=== PATIENT | female | born 1945 | race Caucasian/White ===

== ENCOUNTER 2017-10-03 11:12 | Inpatient (IN) ==
--- NOTE | 2017-10-02 16:49 | Discharge Summary ---
<Miguelina Luna - Last Filed: 10/02/17 16:47> Date of Encounter: 10/02/17 - Discharge Diagnosis (1) Arthritis of knee, right Priority: Primary Status: Acute (2) Status post total knee replacement, right Priority: Primary Status: Acute (3) DMII (diabetes mellitus, type 2) Priority: Secondary Status: Acute Comments: MEDICATION MODIFICATIONS: Hold the following medication for 7 days prior to surgery: -LOVAZA Decrease the following medications by 50% of normal dose night before surgery: -LANTUS (DECREASE TO 18 UNITS NIGHT BEFORE SURGERY. Hold the following medications on the morning of surgery: -NOVOLOG -LASIX -LANTUS . Qualifiers: Diabetes mellitus fdc insulin use: with computer terminal operator use Diabetes mellitus complication status: with unspecified complications Qualified Code(s) : E11.8 - Type 2 diabetes mellitus with unspecified complications; Z79.4 - [facility] (current) use of insulin; Z79.4 - [facility] (current) use of insulin; Z79.4 - [facility] (current) use of insulin; Z79.4 - [facility] (current) use of insulin (4) History of DVT (deep vein thrombosis) Priority: Secondary Status: Chronic Comments: INR1.7 - OK'ed by to have surgery 10/02 Will monitor PT/INR in hospital. Bridge back to therapeutic levels with Lovenox bridge. (5) Anticoagulant long-term use Priority: Secondary Status: Chronic (6) Restless leg syndrome Priority: Secondary Status: Chronic (7) CKD (chronic kidney disease), stage IV Priority: Secondary Status: Chronic (8) Sarcoidosis of lung with sarcoidosis of lymph nodes Priority: Secondary Status: Chronic Comments: Finally, the patient is advised to adjust the following medications in accordance with instructions provided by the patient's surgical provider, PCP, or consulting specialist: -HUMIRA- patient to contact Dr. Chatman regarding resuming Humira after surgery PATIENT NAVIGATOR TO REACH OUT - Hospital Course Hospital course: Ms. Mercedes is a 72 year old female - Time Spent with Patient Total time spent providing and/or coordinating discharge services: - Discharge Medications Home Medications: Atorvastatin [Lipitor] 40 mg PO HS #0 02/23/15 [History] Furosemide [Lasix] 20 mg PO DAILY #0 02/23/15 [History] Losartan Potassium [Cozaar] 100 mg PO DAILY #0 02/23/15 [History] [place]-3 Acid Ethyl Esters [Lovaza] 1 gm PO DAILY #0 02/23/15 [History] Pramipexole [Mirapex] 0.125 mg PO HS 30 Days tablet 02/27/15 [Rx] Insulin ASPART [Novolog] 10 - 15 unit SQ TID 01/15/16 [History] Warfarin [Coumadin] 3 mg PO SUTUWETHFR 04/03/16 [History] traMADol [Ultram] 50 - 100 mg PO BID 04/03/16 [History] EPINEPHrine [Epipen] 0.3 mg IM ONCE PRN #1 kit 05/03/17 [Rx] Insulin Glargine [Lantus] 36 unit SQ BID 09/12/17 [History] OxyCODONE Immed Rel [Roxicodone 5 MG] 5 mg PO Q6HR PRN 7 Days #28 tablet [Rx] Adalimumab [Humira] 40 mg SQ Q14D 10/03/17 [History] Gabapentin [Neurontin] 100 mg PO HS 10/03/17 [History] Metoprolol XL (24 HR) Succ [Toprol XL] 50 mg PO DAILY 10/03/17 [History] Pantoprazole Sodium [Protonix] 40 mg PO DAILY 10/03/17 [History] Warfarin [Coumadin] 4.5 mg PO MO 10/03/17 [History] predniSONE [PredniSONE] 5 mg PO DAILY 10/03/17 [History] Allergies/Adverse Reactions: 3 Allergy/AdvReac Type Severity Reaction Status Date / Time niacin Allergy Mild Rash Verified 10/03/17 11:52 [From Niaspan Extended-Release] sertraline Allergy Mild Dizziness Verified 10/03/17 11:52 aspirin [ASA] Allergy See Verified 10/03/17 11:52 Comments infliximab [From Remicade] Allergy Rash Verified 10/03/17 11:52 NSAIDS (Non-Steroidal Allergy See Verified 10/03/17 11:52 Anti-Inflamma Comments Primary care physician: Conchita Nielson Patient Status Disposition: Transfer Inpatient Rehab Fac Condition: Good - Discharge Instructions Follow Up With: Conchita Lovett MD [Primary Care Provider] - 10/11/17 11:45 am Additional Instructions: OK TO START HUMIRA ON 10/17/17 <Parish Harris - Last Filed: 10/07/17 07:58> Orders not resulted at time of discharge: Pending orders 10/03/17 04:00 PT/INR [Prothrombin Time INR] [COAG] AM 0400 10/03/17 16:46 XR knee RT limited 1-2V [XR] Routine H/H [Hemoglobin and Hematocrit] [HEME] Routine 10/04/17 04:00 PT/INR [Prothrombin Time INR] [COAG] AM 0400 10/05/17 04:00 PT/INR [Prothrombin Time INR] [COAG] AM 0400 Date of Encounter: 10/07/17 Time of Encounter: 07:58 - Discharge Diagnosis (1) CKD (chronic kidney disease), stage IV Priority: Secondary Status: Chronic (2) Obesity (BMI 30.0-34.9) Priority: Secondary Status: Chronic (3) DVT (deep venous thrombosis) Priority: Secondary Status: Chronic Qualifiers: DVT location: lower extremity Affected thrombotic vein of extremity: unspecified vein of extremity Chronicity: unspecified Laterality: bilateral Qualified Code(s): I82.403 - Acute embolism and thrombosis of unspecified deep veins of lower extremity, bilateral (4) Diastolic CHF Priority: Secondary Status: Chronic (5) Arthritis of knee, right Priority: Primary Status: Chronic (6) Status post total knee replacement, right Priority: Primary Status: Acute (7) DMII (diabetes mellitus, type 2) Priority: Secondary Status: Acute Qualifiers: Diabetes mellitus fdc insulin use: with fdc use Diabetes mellitus complication status: with unspecified complications Qualified Code(s) : E11.8 - Type 2 diabetes mellitus with unspecified complications; Z79.4 - [facility] (current) use of insulin; Z79.4 - [facility] (current) use of insulin; Z79.4 - [facility] (current) use of insulin; Z79.4 - [facility] (current) use of insulin (8) History of DVT (deep vein thrombosis) Priority: Secondary Status: Chronic (9) Anticoagulant long-term use Priority: Secondary Status: Chronic - Hospital Course Hospital course: Ms. Mercedes is a 72 year old female Status post right total knee replacement. The patient had an uneventful postoperative course. They received antibiotics and physical therapy and were discharged in stable condition. There will follow -up in the office in 2 weeks. - Time Spent with Patient Total time spent providing and/or coordinating discharge services: Primary care physician: Conchita Dior-[facility] [place] - Patient Status Functional capacity at discharge: uses cane/walker Overall status at discharge: patient is progressing back to baseline
[2017-10-03] MEDS ORDERED: CeFAZolin Syr 2,000MG/20 ML 2,000 MG/20 ML SYRINGE IVPB ONE (12:13)
[2017-10-03] MEDS ORDERED: Ringers Solution, Lactated 1,000 ML IVC SCH (12:15)
--- NOTE | 2017-10-03 12:30 | History & Physical Report ---
Date of Encounter: 10/03/17 Time of Encounter: 12:29 24 Hour HP Update - Instructions Instructions: If the History and Physical is less than 30 days old and was completed prior to A.M. admission and or procedure and has NOT been updated on calendar day of procedure please complete this update prior to performing procedure. - Update Patient reports changes in Medical Condition: No Changes in examination, assessment, or condition: No Changes in Medication: No Preop tests/diagnostics Reviewed: Yes Surgery Remains Indicated: Yes Consent for Planned Operative Procedure(s) Verified: Yes - Pre-Operative Checklist Preoperative Checklist Indicated: No Prophylactic Antibiotic Ordered: Yes Is VTE Prophylaxis Indicated?: Yes
[2017-10-03] MEDS ORDERED: Acetaminophen IV 1,000 MG/100 ML INFUS..BTL IVPB ONE (12:36)
--- NOTE | 2017-10-03 12:40 | Anesthesia Evaluation PreOp ---
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 History: TIA Other Medical History: Renal (CKD), Diabetes Type II, Other (DVT) Anesthesia History: No Prior Anesthetic Complications, Past Anesthesia ( shoulder scope) Alcohol Use: none Drug use: none Medications and Allergies Atorvastatin [Lipitor] 40 mg PO HS #0 02/23/15 [History] Furosemide [Lasix] 20 mg PO DAILY #0 02/23/15 [History] Losartan Potassium [Cozaar] 100 mg PO DAILY #0 02/23/15 [History] [place]-3 Acid Ethyl Esters [Lovaza] 1 gm PO DAILY #0 02/23/15 [History] Pramipexole [Mirapex] 0.125 mg PO HS 30 Days tablet 02/27/15 [Rx] Insulin ASPART [Novolog] 10 - 15 unit SQ TID 01/15/16 [History] Warfarin [Coumadin] 3 mg PO SUTUWETHFR 04/03/16 [History] traMADol [Ultram] 50 - 100 mg PO BID 04/03/16 [History] EPINEPHrine [Epipen] 0.3 mg IM ONCE PRN #1 kit 05/03/17 [Rx] Insulin Glargine [Lantus] 36 unit SQ BID 09/12/17 [History] OxyCODONE Immed Rel [Roxicodone 5 MG] 5 mg PO Q6HR PRN 7 Days #28 tablet [Rx] Adalimumab [Humira] 40 mg SQ Q14D 10/03/17 [History] Gabapentin [Neurontin] 100 mg PO HS 10/03/17 [History] Metoprolol XL (24 HR) Succ [Toprol XL] 50 mg PO DAILY 10/03/17 [History] Pantoprazole Sodium [Protonix] 40 mg PO DAILY 10/03/17 [History] Warfarin [Coumadin] 4.5 mg PO MO 10/03/17 [History] predniSONE [PredniSONE] 5 mg PO DAILY 10/03/17 [History] 3 Allergy/AdvReac Type Severity Reaction Status Date / Time niacin Allergy Mild Rash Verified 10/03/17 11:52 [From Niaspan Extended-Release] sertraline Allergy Mild Dizziness Verified 10/03/17 11:52 aspirin [ASA] Allergy See Verified 10/03/17 11:52 Comments infliximab [From Remicade] Allergy Rash Verified 10/03/17 11:52 NSAIDS (Non-Steroidal Allergy See Verified 10/03/17 11:52 Anti-Inflamma Comments - Meds/Allergy Pre-op Review Medications Reviewed: Yes Allergies Reviewed: Yes Beta Blockers on Current Med List: Yes If Beta Blockers taken, Date/Time (Last Dose taken): 1232 10/03/17 Anesthesia Results - Labs Laboratory Tests 04/04/16 10/01/17 10/01/17 07:22 11:42 11:42 WBC Hgb Hct Plt Count PT 18.2 H INR 1.7 APTT 34.9 Sodium Potassium Chloride Carbon Dioxide BUN Creatinine Est GFR ( Amer) Est GFR (Non-Af Amer) BUN/Creatinine Ratio POC Glucose 163 H Glucose Est Mean Plasma Glucose 194 10/01/17 10/01/17 12:03 12:03 WBC 7.2 Hgb 12.1 Hct 36.0 Plt Count 160 PT INR APTT Sodium 136 Potassium 3.9 Chloride 100 Carbon Dioxide 26 BUN 40 H Creatinine 2.36 H Est GFR ( Amer) 25 L Est GFR (Non-Af Amer) 20 L BUN/Creatinine Ratio 17 POC Glucose Glucose 179 H Est Mean Plasma Glucose - Imaging EKG: report reviewed (sinus tacy with short pr interval) Anesthesia Exam O2 Sat Height 1.6 m Height 1.6 m Weight 81.193 kg Weight 81.193 kg O2 Sat by Pulse Oximetry 98 Vital Signs Temp Pulse Resp BP Pulse Ox 98.2 F 110 18 139/75 98 10/03/17 11:47 10/03/17 11:47 10/03/17 11:47 10/03/17 11:47 10/03/17 11:47 - HEENT Pupil (Motor): Pupils equal, EOMI Mallampati: III Teeth: Edentulous Oral Opening: Greater than 3 - BLOWER MECHANIC LOC: Oriented BLOWER MECHANIC Motor: Normal RUE, Normal LUE, Normal RLE, Normal LLE, Normal Face BLOWER MECHANIC Sensory: Normal: RUE, LUE, RLE, LLE, Face - Cardiac Rhythm: Regular - Pulmonary Breath Sounds: bilateral Clear Respiratory Effort: Symmetrical Anesthesia Assess/Plan ASA Score: 3 Modified [place] Scale for Level of Consciousness: Cooperative, oriented, and tranquil Anesthetic Plan: General Monitoring Plan: Standard Monitors Recovery Plan: PACU
[2017-10-03] MEDS ORDERED: *HR* Promethazine 25 MG/ML VIAL IVP PRN (13:58)
[2017-10-03] MEDS ORDERED: *HR* HYDROcodone/Acet 10/325 mg TABLET PO PRN (13:58)
[2017-10-03] MEDS ORDERED: *HR* Propofol 200 MG/20 ML VIAL IVP ONE ×2 (14:01→14:21)
[2017-10-03] MEDS ORDERED: *HR* FentaNYL (PF) 100 MCG/2 ML VIAL ONE ×3 (14:01→14:58)
[2017-10-03] MEDS ORDERED: *HR* Succinylcholine 200 MG/10 ML VIAL IVP ONE ×2 (14:03→14:21)
[2017-10-03] MEDS ORDERED: Dexamethasone 4 MG/ML VIAL ONE ×2 (14:03→14:21)
[2017-10-03] MEDS ORDERED: Ondansetron 4 MG/2 ML VIAL ONE ×2 (14:03→14:21)
[2017-10-03] MEDS ORDERED: Lidocaine -MPF 2% 2 ML VIAL ONE ×2 (14:03→14:21)
[2017-10-03] MEDS ORDERED: Ethanol\\Acetic Acid\\Na Ace\\Ben 1,000 ML IRRIG.SOLN IR ONE (14:15)
[2017-10-03] MEDS ORDERED: *HR* HYDROmorphone 2 MG/ML SYRINGE ONE ×2 (14:18→14:19)
[2017-10-03] MEDS ORDERED: *HR* Rocuronium Bromide 50 MG/5 ML VIAL ONE (14:21)
[2017-10-03] MEDS ORDERED: Lidocaine -MPF 4% 5 ML AMPUL ONE (14:21)
[2017-10-03] MEDS ORDERED: EPHEDrine 50 MG/ML VIAL ONE (14:55)
--- NOTE | 2017-10-03 15:15 | Physician Discharge Referral ---
Home Health/Hosp Referral Info Transfer to: Home Health Provider in Charge Post Discharge: PCP - Diagnosis (1) Arthritis of knee, right Priority: Primary Status: Chronic (2) Status post total knee replacement, right Priority: Primary Status: Acute (3) DMII (diabetes mellitus, type 2) Status: Acute (4) History of DVT (deep vein thrombosis) Status: Chronic (5) Anticoagulant long-term use Status: Chronic (6) Restless leg syndrome Status: Chronic (7) CKD (chronic kidney disease), stage IV Status: Chronic (8) Sarcoidosis of lung with sarcoidosis of lymph nodes Status: Chronic - Respiratory Orders None Smoking Cessation: Smoking cessation has been advised. For more information, call the [place] Tobacco Quit Line at 9-139-LRRG-NOW. - Diet/Nutrition Diet/Nutrition Orders: Regular - Activity Activity Orders: Up ad almaz, Ambulate, Chair, Walker - Services Needed Following services are medically necessary services: Nursing, Home Health Aide, Physical Therapy, Occupational Therapy Home Care Orders: Knee Continuity Opsite dressing, leave intact until first post-operative visit. If dressing becomes >50% saturated, contact office, remove dressing and place appropriate dressing in its place. Do not allow for dressing to get wet. Zipline and Hachita in place, plan to remove at post-operative day #14-16. Total Joint Precautions x 6 weeks Apply cold therapy wrap 3-6x/day for 20 minutes at a time. Encourage ambulation throughout the day Use Incentive spirometer 10x/hour. Elevate affected extremity above heart as tolerated. Brace: Wear knee immobilizer brace at night x 2 weeks Coumadin Therapy: PT/INR q 3 days - following with PCP - Transfer Medications Prescriptions: OxyCODONE Immed Rel [Roxicodone 5 MG] 5 mg PO Q6HR PRN 7 Days #28 tablet PRN Reason: Severe Pain Home Medications: Atorvastatin [Lipitor] 40 mg PO HS #0 02/23/15 [History] Furosemide [Lasix] 20 mg PO DAILY #0 02/23/15 [History] Losartan Potassium [Cozaar] 100 mg PO DAILY #0 02/23/15 [History] [place]-3 Acid Ethyl Esters [Lovaza] 1 gm PO DAILY #0 02/23/15 [History] Pramipexole [Mirapex] 0.125 mg PO HS 30 Days tablet 02/27/15 [Rx] Insulin ASPART [Novolog] 10 - 15 unit SQ TID 01/15/16 [History] Warfarin [Coumadin] 3 mg PO SUTUWETHFR 04/03/16 [History] traMADol [Ultram] 50 - 100 mg PO BID 04/03/16 [History] EPINEPHrine [Epipen] 0.3 mg IM ONCE PRN #1 kit 05/03/17 [Rx] Insulin Glargine [Lantus] 36 unit SQ BID 09/12/17 [History] OxyCODONE Immed Rel [Roxicodone 5 MG] 5 mg PO Q6HR PRN 7 Days #28 tablet [Rx] Adalimumab [Humira] 40 mg SQ Q14D 10/03/17 [History] Gabapentin [Neurontin] 100 mg PO HS 10/03/17 [History] Metoprolol XL (24 HR) Succ [Toprol XL] 50 mg PO DAILY 10/03/17 [History] Pantoprazole Sodium [Protonix] 40 mg PO DAILY 10/03/17 [History] Warfarin [Coumadin] 4.5 mg PO MO 10/03/17 [History] predniSONE [PredniSONE] 5 mg PO DAILY 10/03/17 [History] Allergies/Adverse Reactions: 3 Allergy/AdvReac Type Severity Reaction Status Date / Time niacin Allergy Mild Rash Verified 10/03/17 11:52 [From Niaspan Extended-Release] sertraline Allergy Mild Dizziness Verified 10/03/17 11:52 aspirin [ASA] Allergy See Verified 10/03/17 11:52 Comments infliximab [From Remicade] Allergy Rash Verified 10/03/17 11:52 NSAIDS (Non-Steroidal Allergy See Verified 10/03/17 11:52 Anti-Inflamma Comments Certification: Further, I certify that my clinical findings support that this patient is homebound (i.e. absences from home require considerable and taxing effort and are for medical reasons or confucianist services or infrequently or short duration when for other reasons) because: Homebound Reason: Patient requires assistance of a person or device to safely leave home, Post-surgery restriction and or conditions limit ability to leave home Attestation: My signature below is to certify that this patient is under my care and that I, or nurse practitioner, or a physician's ortho assistant working with me, has a face-to -face encounter with this patient.
--- NOTE | 2017-10-03 15:22 | Orthopedic Operative Note ---
Date of procedure: 10/03/17 Pre-op diagnosis: Right knee arthritis Post-op diagnosis: same Procedure: Procedure: robotic-assisted Total knee replacement Estimated blood loss: 200 cc Hardware: Metal and polyethylene replacement. [place] Femur: 4 Tibia: 3 TS insert: 13 Patella: 36 Exam Under anesthesia: 4 degrees hyperextension 3 degrees varus as calculated by the robot full flexion and no instability Procedural Notes: Grade 3 changes all 3 compartments. Operative procedure: The patient was brought to the operating room and placed on the operating room table. After general anesthesia was administered the operative knee was examined. Findings were noted in the exam under anesthesia. The operative extremity was prepped and draped in sterile surgical fashion. The patient received IV antibiotics prior to skin incision. A standard midline incision was made centered over the patella. The incision was made through the skin and subcutaneous tissue. A medial parapatellar tendon approach was performed. Care was taken to preserve tissue along the medial aspect of the patella. And to protect the patella tendon. The deep MCL was released off the medial tibia. The infra patella fat pad was excised. The patella was everted and cut was made at the level of the insertion of the quadriceps and patella tendon. The patella was sized to a 36 the guide was seated and the lug holes are drilled. Knee was brought into flexion. Patient noted to have grade 3 changes all 3 compartments. Steinmann pins were placed in the tibia and the femur for the tibial and femoral arrays respectively. Checkpoints were also placed in the tibia and the femur for calculation purposes. The knee including the femur and the tibial registered. Osteophytes, ACL and PCL were excised at this point. Extension and flexion were assessed with a valgus stress components were adjusted on the computer to balance the knee. Femoral cuts were made first with robotic assistance, these included the anterior cut posterior cuts chamfer cuts. Tibial cut was then performed with robotic assistance as well. Bone fragments were removed, as well as the medial and lateral meniscus. The size 4 femoral guide was seated box cut was made lug holes are drilled. The size 3 tibial tray was seated and prepared with the fin cutter. Trial reduction with the 13 TS Jen revealed extension of 0 degree and 2 degrees varus full flexion. No varus valgus instability. Trial reduction revealed excellent patella tracking. All trial components were removed all bony surfaces were irrigated. The Tibia was seated followed by the femur, The Jen size X was seated and secured patella. Patient had similar findings for motion and stability. The knee was closed by the PA. The knee was then irrigated out with 2 L of pulse irrigation. The extensor mechanism was closed with #2 FiberWire suture and #2 PDS suture. The subcutaneous tissue was then irrigated and closed deep with #1 PDS suture superficially with 0 PDS suture and skin was closed with zip tie The patient was then placed in a sterile dressing and a postoperative brace extubated and transferred to recovery room in stable condition. Anesthesia: GETA Surgeon: Parish Harris Was there an podiatry assistant present: Yes Spring Assembler Supervisor: Manasa Rangel Estimated blood loss (cc): 200 Condition: stable Disposition: PACU
[2017-10-03] MEDS: *HR* HYDROmorphone (PF) 1 MG/ML SYRINGE IVP PRN ×4 (16:17→16:52)
[2017-10-03 17:24] LABS: Hematocrit 30.2 % (35.3-44.9); Hemoglobin 10.1 g/dL (11.5-15.4)
--- NOTE | 2017-10-03 17:39 | Anesthesia Evaluation Post Op ---
Date of Encounter: 10/03/17 Time of Encounter: 17:38 - Vital Signs Vital Signs: Vital Signs/O2 Sat, Most Current Temp Pulse Resp BP Pulse Ox 98.2 F 72 14 138/76 96 10/03/17 17:30 10/03/17 17:30 10/03/17 17:30 10/03/17 17:30 10/03/17 17:30 - Lungs Lungs: Clear Ascult./Percussion - Airway Airway: Non-obstructed - Cardiovascular Regular Rate - Mental Status Mental Status: Asleep with brisk response to light stimulation - Pain Pain Scale used: Numeric (1 - 10) (tolerable) - Nausea Vomiting Nausea Vomiting: Not Present - Hydration Hydration: NPO - Discharge PostOp Status: Transfer Patient to floor
[2017-10-03] MEDS ORDERED: MOM Conc 10 ML UD.LIQ PO PRN (17:41)
[2017-10-03] MEDS ORDERED: NON-FORMULARY MEDICATION 1 EACH EACH (Adalimumab [Humira] 40 MG) SQ SCH (17:41)
[2017-10-03] MEDS ORDERED: Sennosides 8.6 MG TABLET PO PRN (17:41)
[2017-10-03] MEDS ORDERED: *HR* EPINEPHrine 0.3 MG/0.3 ML (PEN) IM PRN (17:41)
[2017-10-03] MEDS ORDERED: Ondansetron 4 MG/2 ML VIAL IVP PRN (17:41)
[2017-10-03] MEDS ORDERED: Naloxone 0.4 MG/ML INJ IVP PRN (17:41)
[2017-10-03] MEDS ORDERED: Temazepam 15 MG CAPSULE PO PRN (17:41)
[2017-10-03] MEDS ORDERED: *HR* Warfarin 3 MG TABLET PO SCH (18:00)
[2017-10-03 19:59] LABS: INR 1.7; Prothrombin Time 18.6 Seconds (9.4-12.1)
[2017-10-03] MEDS: *HR* Warfarin 3 MG TABLET PO SCH (20:20)
[2017-10-03] MEDS: Gabapentin 100 MG CAPSULE PO SCH (20:20)
[2017-10-03] MEDS: Ringers Solution, Lactated 1,000 ML IVC SCH (20:21)
[2017-10-03] MEDS: *HR* OxyCODONE Immed Rel 5 MG TABLET PO PRN (20:26)
[2017-10-03] MEDS ORDERED: INSULIN GLARGINE 36 UNIT SQ SCH (21:00)
[2017-10-03] MEDS: *HR* OxyCODONE/APAP 5/325 TABLET PO PRN (22:34)
[2017-10-03] MEDS: Insulin DETEMIR 100 UNIT/ML X5UNITS SQ SCH (22:39)
[2017-10-03] MEDS: ceFAZolin 2,000 MG in 0.9 % Sodium Chloride 100 ML IVPB SCH (23:52)
[2017-10-04 01:25] LABS: INR 1.6; Prothrombin Time 17.4 Seconds (9.4-12.1)
[2017-10-04 01:27] LABS: Hematocrit 32.1 % (35.3-44.9); Hemoglobin 10.9 g/dL (11.5-15.4)
[2017-10-04 01:40] LABS: Calcium 11.3 mg/dL (8.6-10.3); Potassium 4.7 mEq/L (3.5-5.1)
[2017-10-04] MEDS: *HR* OxyCODONE Immed Rel 5 MG TABLET PO PRN ×5 (01:55→22:11)
[2017-10-04] MEDS: *HR* OxyCODONE/APAP 5/325 TABLET PO PRN (05:28)
--- NOTE | 2017-10-04 08:16 | Orthopedics Progress Note ---
Date of Encounter: 10/04/17 Time of Encounter: 08:15 - Assessment and Plan (1) CKD (chronic kidney disease), stage IV Current Visit: No Status: Chronic (2) Obesity (BMI 30.0-34.9) Current Visit: No Status: Chronic (3) DVT (deep venous thrombosis) Current Visit: No Status: Chronic Qualifiers: DVT location: lower extremity Affected thrombotic vein of extremity: unspecified vein of extremity Chronicity: unspecified Laterality: bilateral Qualified Code(s): I82.403 - Acute embolism and thrombosis of unspecified deep veins of lower extremity, bilateral (4) Diastolic CHF Current Visit: No Status: Chronic Qualifiers: Qualified Code(s): I50.32 - Chronic diastolic (congestive) heart failure (5) Arthritis of knee, right Current Visit: No Status: Chronic (6) Status post total knee replacement, right Current Visit: No Status: Acute (7) DMII (diabetes mellitus, type 2) Current Visit: No Status: Acute Qualifiers: Diabetes mellitus [facility] insulin use: with long lines operator use Diabetes mellitus complication status: with unspecified complications Qualified Code(s) : E11.8 - Type 2 diabetes mellitus with unspecified complications; Z79.4 - [facility] (current) use of insulin; Z79.4 - [facility] (current) use of insulin; Z79.4 - [facility] (current) use of insulin; Z79.4 - 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 Afebrile vital signs stable. Operative extremity: Neurovascularly intact Dressing clean dry and intact Cal[place] nontender Assessment and plan: Continue with postoperative care Hematocrit 32 Objective Vital signs: Vital Signs Temp Pulse Resp BP Pulse Ox 10/04/17 07:20 97.6 F 77 14 126/65 99 10/04/17 05:35 97.6 F 75 16 144/79 98 10/03/17 20:33 96 10/03/17 20:01 97.6 F 64 16 147/80 96 10/03/17 19:05 96.8 F L 66 12 154/85 96 10/03/17 18:18 97.4 F L 69 12 154/81 93 10/03/17 17:50 97.5 F L 73 12 139/79 93 10/03/17 17:30 98.2 F 72 14 138/76 96 10/03/17 17:20 72 16 137/70 94 10/03/17 17:10 71 12 145/73 93 10/03/17 17:00 98.4 F 76 12 157/79 94 10/03/17 16:50 75 16 157/83 96 10/03/17 16:40 77 16 154/82 94 10/03/17 16:30 98.6 F 81 16 164/76 95 10/03/17 16:20 78 16 165/80 94 10/03/17 16:10 82 16 156/82 95 10/03/17 16:00 98.9 F 82 16 167/87 96 10/03/17 11:47 98.2 F 110 18 139/75 98 Intake and Output 10/03/17 10/04/17 10/04/17 23:59 07:59 15:59 Output Total 200 / 200 500 / 500 Balance -200 / -200 -500 / -500 Output: Urine 500 / 500 Estimated Blood Loss 200 / 200 Other: # Voids 1 Blood Glucose* 255 342 - Labs CBC & BMP: 10/04/17 00:39 10/04/17 00:39 Labs: Abnormal lab results Hgb 10.9 g/dL (11.5-15.4) L 10/04/17 00:39 Hct 32.1 % (35.3-44.9) L 10/04/17 00:39 PT 17.4 Seconds (9.4-12.1) H 10/04/17 00:39 Sodium 135 mEq/L (136-145) L 10/04/17 00:39 BUN 43 mg/dL (8-23) H 10/04/17 00:39 Creatinine 2.44 mg/dL (0.60-1.20) H 10/04/17 00:39 Est GFR ( Amer) 24 (> 60) L 10/04/17 00:39 Est GFR (Non-Af Amer) 19 (> 60) L 10/04/17 00:39 Glucose 326 mg/dL (70-105) H 10/04/17 00:39 POC Glucose 221 mg/dL (70-99) H 10/03/17 11:44 Calculated Osmolality 303 (280-300) H 10/04/17 00:39 Calcium 11.3 mg/dL (8.6-10.3) H 10/04/17 00:39 - VTE Documentation of Mechanical Device: Venous foot pump, device Consult Discharge Plan - Plan Referrals: Conchita Lovett MD [Primary Care Provider] - Prescriptions: OxyCODONE Immed Rel [Roxicodone 5 MG] 5 mg PO Q6HR PRN 7 Days #28 tablet PRN Reason: Severe Pain
[2017-10-04] MEDS: Metoprolol XL (24 HR) Succ 50 MG TAB.ER.24H PO SCH (08:47)
[2017-10-04] MEDS: Insulin DETEMIR 100 UNIT/ML X5UNITS SQ SCH ×2 (08:47→21:25)
[2017-10-04] MEDS: (Omega-3 Acid Ethyl Esters [Lovaza] 1 GM) PO SCH (08:47)
[2017-10-04] MEDS: Furosemide 20 MG TABLET PO SCH (08:47)
[2017-10-04] MEDS: predniSONE 5 MG TABLET PO SCH (08:47)
[2017-10-04] MEDS ORDERED: Dextrose Gel 15 GM/37.5 ML TUBE PO PRN ×2 (08:58)
[2017-10-04] MEDS ORDERED: D5% in Water 1,000 ML IVC PRN (08:58)
[2017-10-04] MEDS ORDERED: *HR* Dextrose 50 % in Water (Syg) 50 ML SYRINGE IVP PRN (08:58)
[2017-10-04] MEDS: Insulin LISPRO 300 UNITS/3 ML VIAL SQ SCH ×4 (09:31→21:25)
[2017-10-04] MEDS: ceFAZolin 2,000 MG in 0.9 % Sodium Chloride 100 ML IVPB SCH (09:32)
[2017-10-04] MEDS: *HR* Enoxaparin 80 MG/0.8 ML SYRINGE SQ SCH (11:48)
[2017-10-04] MEDS ORDERED: *HR* Enoxaparin 30 MG/0.3 ML SYRINGE SQ SCH (12:33)
--- NOTE | 2017-10-04 12:34 | Event Note ---
Date of Encounter: 10/04/17 Time of Encounter: 12:26 PCR - POD#1 Right TKR 10/03/17 Patient seen at bedside. Labs reviewed. BAseline GFR stable, continue to monitor Pain control: adequate Participating in PT. All questions and concerns addressed. Educated on use of incentive spirometer. Encouraged ambulation and proper hydration. Patient educated on post-operative restrictions and post-operative care. Addressed: see above Discharge plan: ECF , continuitiy placed
--- NOTE | 2017-10-04 12:36 | Physician Discharge Referral ---
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 - Transfer Medications Prescriptions: OxyCODONE Immed Rel [Roxicodone 5 MG] 5 mg PO Q6HR PRN 7 Days #28 tablet PRN Reason: Severe Pain Home Medications: Atorvastatin [Lipitor] 40 mg PO HS #0 02/23/15 [History] Furosemide [Lasix] 20 mg PO DAILY #0 02/23/15 [History] Losartan Potassium [Cozaar] 100 mg PO DAILY #0 02/23/15 [History] [place]-3 Acid Ethyl Esters [Lovaza] 1 gm PO DAILY #0 02/23/15 [History] Pramipexole [Mirapex] 0.125 mg PO HS 30 Days tablet 02/27/15 [Rx] Insulin ASPART [Novolog] 10 - 15 unit SQ TID 01/15/16 [History] Warfarin [Coumadin] 3 mg PO SUTUWETHFR 04/03/16 [History] traMADol [Ultram] 50 - 100 mg PO BID 04/03/16 [History] EPINEPHrine [Epipen] 0.3 mg IM ONCE PRN #1 kit 05/03/17 [Rx] Insulin Glargine [Lantus] 36 unit SQ BID 09/12/17 [History] OxyCODONE Immed Rel [Roxicodone 5 MG] 5 mg PO Q6HR PRN 7 Days #28 tablet [Rx] Adalimumab [Humira] 40 mg SQ Q14D 10/03/17 [History] Gabapentin [Neurontin] 100 mg PO HS 10/03/17 [History] Metoprolol XL (24 HR) Succ [Toprol XL] 50 mg PO DAILY 10/03/17 [History] Pantoprazole Sodium [Protonix] 40 mg PO DAILY 10/03/17 [History] Warfarin [Coumadin] 4.5 mg PO MO 10/03/17 [History] predniSONE [PredniSONE] 5 mg PO DAILY 10/03/17 [History] Allergies/Adverse Reactions: 3 Allergy/AdvReac Type Severity Reaction Status Date / Time niacin Allergy Mild Rash Verified 10/03/17 11:52 [From Niaspan Extended-Release] sertraline Allergy Mild Dizziness Verified 10/03/17 11:52 aspirin [ASA] Allergy See Verified 10/03/17 11:52 Comments infliximab [From Remicade] Allergy Rash Verified 10/03/17 11:52 NSAIDS (Non-Steroidal Allergy See Verified 10/03/17 11:52 Anti-Inflamma Comments - Respiratory Orders None Smoking Cessation: Smoking cessation has been advised. For more information, call the [employer] Tobacco Quit Line at 9-534-QGUB-NOW. - Ancillary Orders May use pressure relief devices daily prn - Mobility Orders Chair, Ambulate - Rehabiliation Orders Rehab Potential: Good Rehab Orders: ROM Exercises, Evaluation for Physical Therapy, Evaluation for Occupational Therapy - Treatments Skin tear care topically daily PRN per policy List/Other: Knee Continuity: Opsite dressing, leave intact until first post-operative visit. If dressing becomes >50% saturated, contact office, remove dressing and place appropriate dressing in its place. Do not allow for dressing to get wet. Zipline/[place] in place, plan to remove at post-operative day #14-16. Total Joint Precautions x 6 weeks Apply cold therapy wrap 3-6x/day for 20 minutes at a time. Encourage ambulation throughout the day Use Incentive spirometer 10x/hour. Elevate affected extremity above heart as tolerated. Brace: Wear knee immobilizer at night x 2 weeks.~ - Diet Orders Regular CERTIFICATION: I certify that the transfer of the above named patient to an Extended Care Facility is necessary for the continuing treatment of the diagnosis listed. The above information is true and accurate reflection of patient's current condition. Confidential - Redisclosure prohibited without a patient's written consent.
[2017-10-04] MEDS: *HR* Warfarin 3 MG TABLET PO SCH (17:02)
[2017-10-04] MEDS: Ringers Solution, Lactated 1,000 ML IVC SCH (21:20)
[2017-10-04] MEDS: Gabapentin 100 MG CAPSULE PO SCH (21:24)
[2017-10-05 02:27] LABS: Hematocrit 31.2 % (35.3-44.9); Hemoglobin 10.2 g/dL (11.5-15.4)
[2017-10-05 02:32] LABS: INR 3.3; Prothrombin Time 36.2 Seconds (9.4-12.1)
[2017-10-05 02:45] LABS: Calcium 11.3 mg/dL (8.6-10.3); Potassium 3.9 mEq/L (3.5-5.1)
[2017-10-05] MEDS: *HR* OxyCODONE Immed Rel 5 MG TABLET PO PRN ×2 (05:04→23:19)
[2017-10-05] MEDS: *HR* Enoxaparin 80 MG/0.8 ML SYRINGE SQ SCH (05:05)
--- NOTE | 2017-10-05 06:46 | Orthopedics Progress Note ---
Date of Encounter: 10/05/17 Time of Encounter: 06:45 - Assessment and Plan (1) CKD (chronic kidney disease), stage IV Current Visit: No Status: Chronic (2) Obesity (BMI 30.0-34.9) Current Visit: No Status: Chronic (3) DVT (deep venous thrombosis) Current Visit: No Status: Chronic Qualifiers: DVT location: lower extremity Affected thrombotic vein of extremity: unspecified vein of extremity Chronicity: unspecified Laterality: bilateral Qualified Code(s): I82.403 - Acute embolism and thrombosis of unspecified deep veins of lower extremity, bilateral (4) Diastolic CHF Current Visit: No Status: Chronic Qualifiers: Qualified Code(s): I50.32 - Chronic diastolic (congestive) heart failure (5) Arthritis of knee, right Current Visit: No Status: Chronic (6) Status post total knee replacement, right Current Visit: No Status: Acute (7) DMII (diabetes mellitus, type 2) Current Visit: No Status: Acute Qualifiers: Diabetes mellitus mcc insulin use: with termination clerk use Diabetes mellitus complication status: with unspecified complications Qualified Code(s) : E11.8 - Type 2 diabetes mellitus with unspecified complications; Z79.4 - assisted (current) use of insulin; Z79.4 - assisted (current) use of insulin; Z79.4 - assisted (current) use of insulin; Z79.4 - 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 Afebrile vital signs stable. Operative extremity: Neurovascularly intact Dressing clean dry and intact Calves nontender Assessment and plan: Continue with postoperative care Hematocrit 31 discharge being held until placement improved Objective Vital signs: Vital Signs Temp Pulse Resp BP Pulse Ox 10/04/17 23:50 98.6 F 75 16 148/80 97 10/04/17 20:21 98.5 F 82 16 153/78 95 10/04/17 15:37 98.2 F 86 16 150/77 96 10/04/17 11:23 97.9 F 62 16 119/74 95 10/04/17 07:20 97.6 F 77 14 126/65 99 Intake and Output 10/04/17 10/04/17 10/05/17 15:59 23:59 07:59 Intake Total 600 / 600 100 / 100 Output Total 900 / 900 600 / 600 1700 / 1700 Balance -300 / -300 -600 / -600 -1600 / -1600 Intake: IV Fluids 100 / 100 Ancef 2,000 MG In 0.9 % Sodium 100 / 100 Chloride 100 ML @ 200 mls/hr IVPB Q8H CAROL Rx#:[id number] Oral 500 / 500 100 / 100 Output: Urine 900 / 900 600 / 600 1700 / 1700 Other: Meal Dinner Percent of Meal Consumed 85% Weight 85.4 kg Blood Glucose* 254 192 - Labs CBC & BMP: 10/05/17 02:13 10/05/17 02:13 Labs: Abnormal lab results Hgb 10.2 g/dL (11.5-15.4) L 10/05/17 02:13 Hct 31.2 % (35.3-44.9) L 10/05/17 02:13 PT 36.2 Seconds (9.4-12.1) H D 10/05/17 02:13 BUN 42 mg/dL (8-23) H 10/05/17 02:13 Creatinine 2.20 mg/dL (0.60-1.20) H 10/05/17 02:13 Est GFR ( Amer) 27 (> 60) L 10/05/17 02:13 Est GFR (Non-Af Amer) 22 (> 60) L 10/05/17 02:13 Glucose 154 mg/dL (70-105) H 10/05/17 02:13 POC Glucose 192 mg/dL (70-99) H 10/04/17 20:29 Calcium 11.3 mg/dL (8.6-10.3) H 10/05/17 02:13 - VTE Documentation of Mechanical Device: Venous foot pump, device Consult Discharge Plan - Plan Referrals: Conchita Lovett MD [Primary Care Provider] -
[2017-10-05] MEDS: *HR* OxyCODONE/APAP 5/325 TABLET PO PRN ×2 (07:49→17:23)
[2017-10-05] MEDS: Metoprolol XL (24 HR) Succ 50 MG TAB.ER.24H PO SCH (07:49)
[2017-10-05] MEDS: Furosemide 20 MG TABLET PO SCH (07:49)
[2017-10-05] MEDS: (Omega-3 Acid Ethyl Esters [Lovaza] 1 GM) PO SCH (07:50)
[2017-10-05] MEDS: predniSONE 5 MG TABLET PO SCH (07:50)
[2017-10-05] MEDS: Insulin LISPRO 300 UNITS/3 ML VIAL SQ SCH ×4 (08:30→20:05)
[2017-10-05] MEDS: Insulin DETEMIR 100 UNIT/ML X5UNITS SQ SCH ×2 (08:30→20:11)
[2017-10-05] MEDS: Gabapentin 100 MG CAPSULE PO SCH (20:10)
[2017-10-05] MEDS: traMADol 50 MG TABLET PO PRN (20:11)
[2017-10-06 02:11] LABS: INR 2.3; Prothrombin Time 25.6 Seconds (9.4-12.1)
[2017-10-06] MEDS: *HR* OxyCODONE Immed Rel 5 MG TABLET PO PRN ×3 (03:45→19:32)
--- NOTE | 2017-10-06 06:24 | Orthopedics Progress Note ---
Date of Encounter: 10/06/17 Time of Encounter: 06:24 - Assessment and Plan (1) CKD (chronic kidney disease), stage IV Current Visit: No Status: Chronic (2) Obesity (BMI 30.0-34.9) Current Visit: No Status: Chronic (3) DVT (deep venous thrombosis) Current Visit: No Status: Chronic Qualifiers: DVT location: lower extremity Affected thrombotic vein of extremity: unspecified vein of extremity Chronicity: unspecified Laterality: bilateral Qualified Code(s): I82.403 - Acute embolism and thrombosis of unspecified deep veins of lower extremity, bilateral (4) Diastolic CHF Current Visit: No Status: Chronic Qualifiers: Qualified Code(s): I50.32 - Chronic diastolic (congestive) heart failure (5) Arthritis of knee, right Current Visit: No Status: Chronic (6) Status post total knee replacement, right Current Visit: No Status: Acute (7) DMII (diabetes mellitus, type 2) Current Visit: No Status: Acute Qualifiers: Diabetes mellitus jail insulin use: with middle or intermediate school principal use Diabetes mellitus complication status: with unspecified complications Qualified Code(s) : E11.8 - Type 2 diabetes mellitus with unspecified complications; Z79.4 - retirement (current) use of insulin; Z79.4 - retirement (current) use of insulin; Z79.4 - retirement (current) use of insulin; Z79.4 - 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 Afebrile vital signs stable. Operative extremity: Neurovascularly intact Dressing clean dry and intact Calves nontender Assessment and plan: Continue with postoperative care INR 2.3 restart Coumadin, discharged being held until placement improved Objective Vital signs: Vital Signs Temp Pulse Resp BP Pulse Ox 10/06/17 04:30 97.9 F 75 16 135/84 94 10/06/17 00:11 98.3 F 67 16 113/74 92 10/05/17 19:39 98.8 F 79 16 151/81 95 10/05/17 15:10 98.0 F 77 17 153/76 98 10/05/17 11:48 98.1 F 87 16 118/74 97 10/05/17 07:22 98.5 F 76 16 147/77 99 Intake and Output 10/05/17 10/05/17 10/06/17 15:59 23:59 07:59 Intake Total 100 / 100 Output Total 600 / 600 Balance -500 / -500 Intake: Oral 100 / 100 Output: Urine 600 / 600 Other: # Voids 1 Weight 85.8 kg Blood Glucose* 155 105 Patient Weight 10/06/17 23:59 Weight 85.8 kg - Labs CBC & BMP: 10/05/17 02:13 10/05/17 02:13 Labs: Abnormal lab results Hgb 10.2 g/dL (11.5-15.4) L 10/05/17 02:13 Hct 31.2 % (35.3-44.9) L 10/05/17 02:13 PT 25.6 Seconds (9.4-12.1) H 10/06/17 01:08 BUN 42 mg/dL (8-23) H 10/05/17 02:13 Creatinine 2.20 mg/dL (0.60-1.20) H 10/05/17 02:13 Est GFR ( Amer) 27 (> 60) L 10/05/17 02:13 Est GFR (Non-Af Amer) 22 (> 60) L 10/05/17 02:13 Glucose 154 mg/dL (70-105) H 10/05/17 02:13 POC Glucose 112 mg/dL (70-99) H 10/05/17 16:57 Calcium 11.3 mg/dL (8.6-10.3) H 10/05/17 02:13 - VTE Documentation of Mechanical Device: Venous foot pump, device Consult Discharge Plan - Plan Additional Instructions: OK TO START [place] ON 10/17/17 Referrals: Conchita Lovett MD [Primary Care Provider] - 10/11/17 11:45 am
[2017-10-06] MEDS: Metoprolol XL (24 HR) Succ 50 MG TAB.ER.24H PO SCH (08:29)
[2017-10-06] MEDS: Furosemide 20 MG TABLET PO SCH (08:29)
[2017-10-06] MEDS: predniSONE 5 MG TABLET PO SCH (08:29)
[2017-10-06] MEDS: (Omega-3 Acid Ethyl Esters [Lovaza] 1 GM) PO SCH (08:32)
[2017-10-06] MEDS: Insulin LISPRO 300 UNITS/3 ML VIAL SQ SCH ×3 (08:35→17:16)
[2017-10-06] MEDS: Insulin DETEMIR 100 UNIT/ML X5UNITS SQ SCH ×2 (08:46→19:34)
[2017-10-06] MEDS ORDERED: *HR* Warfarin 1 MG TABLET PO SCH (18:00)
[2017-10-06] MEDS: Gabapentin 100 MG CAPSULE PO SCH (19:32)
[2017-10-07] MEDS: Insulin LISPRO 300 UNITS/3 ML VIAL SQ SCH ×2 (00:20→08:10)
[2017-10-07 05:57] LABS: INR 1.6; Prothrombin Time 17.2 Seconds (9.4-12.1)
[2017-10-07] MEDS: Ringers Solution, Lactated 1,000 ML IVC SCH ×3 (07:13→07:38)
--- NOTE | 2017-10-07 07:59 | Orthopedics Progress Note ---
Date of Encounter: 10/07/17 Time of Encounter: 07:59 - Assessment and Plan (1) CKD (chronic kidney disease), stage IV Current Visit: No Status: Chronic (2) Obesity (BMI 30.0-34.9) Current Visit: No Status: Chronic (3) DVT (deep venous thrombosis) Current Visit: No Status: Chronic Qualifiers: DVT location: lower extremity Affected thrombotic vein of extremity: unspecified vein of extremity Chronicity: unspecified Laterality: bilateral Qualified Code(s): I82.403 - Acute embolism and thrombosis of unspecified deep veins of lower extremity, bilateral (4) Arthritis of knee, right Current Visit: No Status: Chronic (5) Status post total knee replacement, right Current Visit: No Status: Acute (6) DMII (diabetes mellitus, type 2) Current Visit: No Status: Acute Qualifiers: Diabetes mellitus fpc insulin use: with fpc use Diabetes mellitus complication status: with unspecified complications Qualified Code(s) : E11.8 - Type 2 diabetes mellitus with unspecified complications; Z79.4 - alf (current) use of insulin; Z79.4 - alf (current) use of insulin; Z79.4 - terminal make up operator (current) use of insulin; Z79.4 - alf (current) use of insulin (7) History of DVT (deep vein thrombosis) Current Visit: No Status: Chronic (8) Anticoagulant long-term use Current Visit: No Status: Chronic Subjective Interval history: Patient was seen this morning doing well without complaints. Afebrile vital signs stable. Operative extremity: Neurovascularly intact Dressing clean dry and intact Calves nontender Assessment and plan: Continue with postoperative care Discharged today Objective Vital signs: Vital Signs Temp Pulse Resp BP Pulse Ox 10/07/17 03:59 97.9 F 67 16 94/60 91 10/07/17 00:28 98.6 F 16 93 86/60 10/06/17 18:52 98.3 F 75 16 91/60 94 10/06/17 15:00 98.7 F 70 15 121/76 94 10/06/17 11:00 98.3 F 69 17 111/73 96 Intake and Output 10/06/17 10/06/17 10/07/17 15:59 23:59 07:59 Intake Total 320 / 320 500 / 500 Output Total 800 / 800 Balance 320 / 320 -300 / -300 Intake: Oral 320 / 320 500 / 500 Output: Urine 800 / 800 Other: Meal Lunch Dinner Percent of Meal Consumed 60% 95% Weight 84.9 kg Blood Glucose* 175 157 Patient Weight 10/07/17 23:59 Weight 84.9 kg - Labs CBC & BMP: 10/05/17 02:13 10/05/17 02:13 Labs: Abnormal lab results Hgb 10.2 g/dL (11.5-15.4) L 10/05/17 02:13 Hct 31.2 % (35.3-44.9) L 10/05/17 02:13 PT 17.2 Seconds (9.4-12.1) H 10/07/17 05:26 BUN 42 mg/dL (8-23) H 10/05/17 02:13 Creatinine 2.20 mg/dL (0.60-1.20) H 10/05/17 02:13 Est GFR ( Amer) 27 (> 60) L 10/05/17 02:13 Est GFR (Non-Af Amer) 22 (> 60) L 10/05/17 02:13 Glucose 154 mg/dL (70-105) H 10/05/17 02:13 POC Glucose 157 mg/dL (70-99) H 10/06/17 20:16 Calcium 11.3 mg/dL (8.6-10.3) H 10/05/17 02:13 - VTE Documentation of Mechanical Device: Venous foot pump, device Consult Discharge Plan - Plan Additional Instructions: OK TO START [place] ON 10/17/17 Referrals: Conchita Lovett MD [Primary Care Provider] - 10/11/17 11:45 am
[2017-10-07 08:02] VITALS: BP 114/73
[2017-10-07] MEDS: Insulin DETEMIR 100 UNIT/ML X5UNITS SQ SCH (08:13)
[2017-10-07] MEDS: Furosemide 20 MG TABLET PO SCH (08:13)
[2017-10-07] MEDS: predniSONE 5 MG TABLET PO SCH (08:13)
[2017-10-07] MEDS: Metoprolol XL (24 HR) Succ 50 MG TAB.ER.24H PO SCH (08:13)
[2017-10-07] MEDS: (Omega-3 Acid Ethyl Esters [Lovaza] 1 GM) PO SCH (08:13)
[2017-10-07] MEDS: traMADol 50 MG TABLET PO PRN (08:18)
[2017-10-07] MEDS ORDERED: *HR* Warfarin 3 MG TABLET PO SCH (18:00)
[2017-10-08] MEDS ORDERED: *HR* Warfarin 3 MG TABLET PO SCH ×2 (18:00)
== END 2017-10-07 12:16 | DRG 470 ==
LOC: SAMDAY 11:12 → 3NENU 17:25
PROVIDERS: ADMIT Orthopaedic Surgery; ATTEND Orthopaedic Surgery

== ENCOUNTER 2018-02-24 13:53 | Inpatient (IN) ==
[2018-02-24] MEDS ORDERED: Ondansetron 4 MG/2 ML VIAL IVP PRN ×2 (15:02→17:21)
--- NOTE | 2018-02-24 15:06 | Emergency Department Note ---
Disposition Clinical Impression: Colitis presumed infectious, Acute kidney injury, Dehydration, Elevated troponin Disposition: Admitted As Inpatient Condition: Fair Time of Disposition: 17:07 Nausea/Vomiting/Diarrhea HPI - General Chief complaint: ED Nausea/Vomiting/Diarrhea Stated complaint: "n/v,abd pain" Time Seen by Provider: 02/24/18 14:25 Source: patient, family Limitations: no limitations - History of Present Illness HPI Narrative: 74 YO F with history of abdominal pain and N/V with a history significant for T2DM and R sided DVT. Patient starting having symptoms on Sunday. She has been unable to tolerate oral fluids or solids since then. Every day she reports have dark diarrhea 3x per day. Abdominal pain is in RLQ and nonradiating. She also complains of RLE pain and weakness since Sunday. She reports her blood glucose this morning was 400. Patient reports accoiated symptoms of fever, night sweats. Daughter denies noticing any AMS. Patient denies headache or SOB. Pt Subjective Complaint: nausea, vomiting, diarrhea, abdominal pain Onset (ago): day(s) Description of Diarrhea: water Severity: moderate, severe Consistency: constant Improves with: nothing Worsens with: movement - Related Data Home Medications Medication Instructions Recorded Confirmed Atorvastatin [Lipitor] 40 mg PO HS #0 02/23/15 10/03/17 Furosemide [Lasix] 20 mg PO DAILY #0 02/23/15 10/03/17 Losartan Potassium [Cozaar] 100 mg PO DAILY #0 02/23/15 10/03/17 Insulin ASPART [Novolog] 10 - 15 unit SQ TID 01/15/16 10/03/17 Warfarin [Coumadin] 3 mg PO SUTUWETHFR 04/03/16 10/03/17 Insulin Glargine [Lantus] 36 unit SQ BID 09/12/17 10/03/17 Adalimumab [Humira] 40 mg SQ Q14D 10/03/17 10/03/17 Gabapentin [Neurontin] 100 mg PO HS 10/03/17 10/03/17 Metoprolol XL (24 HR) Succ [Toprol 50 mg PO DAILY 10/03/17 10/03/17 XL] Pantoprazole Sodium [Protonix] 40 mg PO DAILY 10/03/17 10/03/17 Insulin Glargine [Lantus] 14 unit SQ HS 02/24/18 02/24/18 Pramipexole Di-HCl [Pramipexole 0.125 mg PO HS 02/24/18 02/24/18 Dihydrochloride] Tramadol HCl [Ultram] 50 - 100 mg PO BID PRN 02/24/18 02/24/18 predniSONE [PredniSONE] 10 mg PO BIDWM 02/24/18 02/24/18 Previous Rx's Medication Instructions Recorded EPINEPHrine [Epipen] 0.3 mg IM ONCE PRN #1 kit 05/03/17 Allergies Allergy/AdvReac Type Severity Reaction Status Date / Time niacin Allergy Mild Rash Verified 02/23/18 20:09 [From Niaspan Extended-Release] sertraline Allergy Mild Dizziness Verified 02/23/18 20:09 aspirin [ASA] Allergy See Verified 02/23/18 20:09 Comments infliximab [From Remicade] Allergy Rash Verified 02/23/18 20:09 NSAIDS (Non-Steroidal Allergy See Verified 02/23/18 20:09 Anti-Inflamma Comments Past Medical History - Past Medical History Medical history: Reports: DVT, diabetes, hypertension, renal disease, other Surgical history: Reports: knee replacement Psychiatric history: Reports: anxiety, depression [place] history: Reports: no [place] history - Social History Smoking Status: Never smoker Smokeless Tobacco Status: No Alcohol use: Reports: none Drug use: Reports: none Physical Exam - General Limitations: no limitations General appearance: alert, in distress, obese - Respiratory Respiratory exam: Present: normal lung sounds bilaterally - Cardiovascular Cardiovascular exam: Present: regular rate, normal rhythm - Abdominal Exam Abdominal exam: Present: soft, Non-Tender, normal bowel sounds. Absent: distention Abdominal tenderness: Present: RLQ - Expanded Lower Extremity Exam Lower leg exam: Present: tenderness (tenderness ) Course Course Narrative: 72 YO F presenting with abdominal pain and N/V with history of DVT, T2DM. - Patient has a history of DVT and presents with pain with palpation and weakness in the RLE since onset of diarrhea. Ordered RLQ Doppler to r/o DVT. - Given PE indications of PE and history of PE cannot rule out abdominal ischemia due to clot - ordered abdominal CT ab/pelvis without contrast, lactate - Concerned for appendicitis given RLQ abdoimnal pain and patient endorses night sweats and fever since adominal pain started - CT ab/pelvis - Patient reports blood glucose was 400 - will order ketones if CMP is also high - - Reevaluation(s) Reevaluation #1: Patient's CMP indicated LINDEN due to dehdration. CT abd showed colitis indicating GI infection. Ordered cipro flagly. Gave another liter of NS. Admitted patient for observation for management of LINDEN and GI symptoms. Vital Signs Temperature 98.1 F 02/24/18 14:34 Pulse Rate 107 02/24/18 14:34 Respiratory Rate 16 02/24/18 14:34 Blood Pressure 98/64 02/24/18 14:34 O2 Sat by Pulse Oximetry 98 02/24/18 14:34 Temperature 98.1 F 02/24/18 14:37 Pulse Rate 98 02/24/18 15:00 Respiratory Rate 20 02/24/18 15:00 Blood Pressure 102/50 02/24/18 15:00 O2 Sat by Pulse Oximetry 99 02/24/18 15:00 Oxygen Delivery Oxygen Delivery Room Air Nausea/Vomiting/Diarrhea - Lab Data Result diagrams: 02/24/18 15:06 02/24/18 15:06 Lab Results 02/24/18 02/24/18 02/24/18 Range/Units 15:06 15:06 16:05 WBC 21.9 H (4.3-11.1) K/mcL RBC 3.57 L (3.82-4.97) M/mcL Hgb 10.0 L (11.5-15.4) g/dL Hct 28.9 L (35.3-44.9) % MCV 81.0 L D (83.0-100.0) fL MCH 28.0 (28.0-33.3) pg MCHC 34.6 (31.6-35.5) g/dL RDW 16.3 H (11.5-14.5) % Plt Count 126 L (140-400) K/mcL MPV 10.8 (9.4-12.4) fL Immature Gran % 7.0 H (0-4) % Seg Neutrophils % 82.2 % Lymphocytes % 3.1 % Monocytes % 7.5 % Eosinophils % 0.0 % Basophils % 0.2 % Neutrophils # 18.0 H (1.6-8.9) K/mcL Lymphocytes # 0.7 (0.6-4.6) K/mcL Monocytes # 1.6 H (0.0-1.3) K/mcL Eosinophils # 0.0 (0.0-0.6) K/mcL Basophils # 0.0 (0.0-0.2) K/mcL Sodium 125 L (136-145) mEq/L Potassium 3.9 (3.5-5.1) mEq/L Chloride 94 L (98-107) mEq/L Carbon Dioxide 17 L (23-29) mEq/L BUN 48 H (8-23) mg/dL Creatinine 3.79 H (0.60-1.20) mg/dL Est GFR ( Amer) 14 L (> 60) Est GFR (Non-Af Amer) 12 L (> 60) BUN/Creatinine Ratio 13 (6-26) Glucose 198 H (70-105) mg/dL Calculated Osmolality 278 L (280-300) Lactic Acid 2.2 (0.5-2.2) mmol/L Calcium 8.8 (8.6-10.3) mg/dL Total Bilirubin 0.9 (0.3-1.0) mg/dL AST 15 (13-39) Units/L ALT 11 (7-52) Units/L Alkaline Phosphatase 126 H (34-104) Units/L Troponin I 0.05 H* (< 0.04) ng/mL Serum Total Protein 6.5 (6.4-8.9) g/dL Albumin 3.3 L (3.5-5.7) g/dL Globulin 3.2 (2.4-3.5) g/dL Albumin/Globulin Ratio 1.0 L (1.1-2.2) Lipase 6 L (11-82) Units/L Urine Color (Yellow) Urine Clarity (Clear) Urine pH (5.0-8.0) pH Units Ur Specific [place] (1.010-1.025) Urine Protein (Neg-Trace) mg/dL Urine Glucose (UA) (Normal) mg/dL Urine Ketones (Negative) mg/dL Urine Blood (Negative) Urine Nitrite (Negative) Urine Bilirubin (Negative) Urine Urobilinogen (Normal) mg/dL Ur Leukocyte Esterase (Negative) 02/24/18 Range/Units 16:08 WBC (4.3-11.1) K/mcL RBC (3.82-4.97) M/mcL Hgb (11.5-15.4) g/dL Hct (35.3-44.9) % MCV (83.0-100.0) fL MCH (28.0-33.3) pg MCHC (31.6-35.5) g/dL RDW (11.5-14.5) % Plt Count (140-400) K/mcL MPV (9.4-12.4) fL Immature Gran % (0-4) % Seg Neutrophils % % Lymphocytes % % Monocytes % % Eosinophils % % Basophils % % Neutrophils # (1.6-8.9) K/mcL Lymphocytes # (0.6-4.6) K/mcL Monocytes # (0.0-1.3) K/mcL Eosinophils # (0.0-0.6) K/mcL Basophils # (0.0-0.2) K/mcL Sodium (136-145) mEq/L Potassium (3.5-5.1) mEq/L Chloride (98-107) mEq/L Carbon Dioxide (23-29) mEq/L BUN (8-23) mg/dL Creatinine (0.60-1.20) mg/dL Est GFR ( Amer) (> 60) Est GFR (Non-Af Amer) (> 60) BUN/Creatinine Ratio (6-26) Glucose (70-105) mg/dL Calculated Osmolality (280-300) Lactic Acid (0.5-2.2) mmol/L Calcium (8.6-10.3) mg/dL Total Bilirubin (0.3-1.0) mg/dL AST (13-39) Units/L ALT (7-52) Units/L Alkaline Phosphatase (34-104) Units/L Troponin I (< 0.04) ng/mL Serum Total Protein (6.4-8.9) g/dL Albumin (3.5-5.7) g/dL Globulin (2.4-3.5) g/dL Albumin/Globulin Ratio (1.1-2.2) Lipase (11-82) Units/L Urine Color Yellow (Yellow) Urine Clarity Turbid A (Clear) Urine pH 6.0 (5.0-8.0) pH Units Ur Specific [place] 1.010 (1.010-1.025) Urine Protein 100 H (Neg-Trace) mg/dL Urine Glucose (UA) Normal (Normal) mg/dL Urine Ketones Negative (Negative) mg/dL Urine Blood Moderate H (Negative) Urine Nitrite Negative (Negative) Urine Bilirubin Negative (Negative) Urine Urobilinogen Normal (Normal) mg/dL Ur Leukocyte Esterase Large H (Negative) Attestation Statement - Attestation Attestation: I, Iker Colvin DO, examined this patient [id number] and my medical decision-making was reviewed with Terry Rangel, Resident Physician. I agree with the documented findings, disposition and treatment plan as described except to the extent set forth below. Please see my progress notes for details.
[2018-02-24] MEDS ORDERED: 0.9 % Sodium Chloride 1,000 ML IVC ONE ×3 (15:08→23:44)
[2018-02-24 15:26] LABS: Basophils % 0.2 %; Hematocrit 28.9 % (35.3-44.9); Lymphocytes # 0.7 K/mcL (0.6-4.6); Lymphocytes % 3.1 %; Mean Corpuscular HGB Conc 34.6 g/dL (31.6-35.5); Mean Platelet Volume 10.8 fL (9.4-12.4); Monocytes # 1.6 K/mcL (0.0-1.3); Monocytes % 7.5 %; Platelet Count 126 K/mcL (140-400); Red Blood Count 3.57 M/mcL (3.82-4.97); Red Cell Distribution Width 16.3 % (11.5-14.5); Segmented Neutrophils % 82.2 %
--- NOTE | 2018-02-24 15:31 | Emergency Department Note ---
Disposition Clinical Impression: Colitis presumed infectious, Acute kidney injury, Dehydration, Elevated troponin Disposition: Admitted As Inpatient Condition: Fair Time of Disposition: 17:08 General Adult HPI - General Stated complaint: "n/v,abd pain" Time Seen by Provider: 02/24/18 14:25 Source: patient, family Limitations: no limitations - History of Present Illness Pain Scale: 10 - Related Data Home Medications Medication Instructions Recorded Confirmed Atorvastatin [Lipitor] 40 mg PO HS #0 02/23/15 10/03/17 Furosemide [Lasix] 20 mg PO DAILY #0 02/23/15 10/03/17 Losartan Potassium [Cozaar] 100 mg PO DAILY #0 02/23/15 10/03/17 Insulin ASPART [Novolog] 10 - 15 unit SQ TID 01/15/16 10/03/17 Warfarin [Coumadin] 3 mg PO [id number] 04/03/16 10/03/17 Insulin Glargine [Lantus] 36 unit SQ BID 09/12/17 10/03/17 Adalimumab [Humira] 40 mg SQ Q14D 10/03/17 10/03/17 Gabapentin [Neurontin] 100 mg PO HS 10/03/17 10/03/17 Metoprolol XL (24 HR) Succ [Toprol 50 mg PO DAILY 10/03/17 10/03/17 XL] Pantoprazole Sodium [Protonix] 40 mg PO DAILY 10/03/17 10/03/17 Insulin Glargine [Lantus] 14 unit SQ HS 02/24/18 02/24/18 Pramipexole Di-HCl [Pramipexole 0.125 mg PO HS 02/24/18 02/24/18 Dihydrochloride] Tramadol HCl [Ultram] 50 - 100 mg PO BID PRN 02/24/18 02/24/18 predniSONE [PredniSONE] 10 mg PO BIDWM 02/24/18 02/24/18 Previous Rx's Medication Instructions Recorded EPINEPHrine [Epipen] 0.3 mg IM ONCE PRN #1 kit 05/03/17 Allergies Allergy/AdvReac Type Severity Reaction Status Date / Time niacin Allergy Mild Rash Verified 02/23/18 20:09 [From Niaspan Extended-Release] sertraline Allergy Mild Dizziness Verified 02/23/18 20:09 aspirin [ASA] Allergy See Verified 02/23/18 20:09 Comments infliximab [From Remicade] Allergy Rash Verified 02/23/18 20:09 NSAIDS (Non-Steroidal Allergy See Verified 02/23/18 20:09 Anti-Inflamma Comments Past Medical History - Past Medical History Medical history: Reports: DVT, diabetes, hypertension, renal disease, other Surgical history: Reports: knee replacement Psychiatric history: Reports: anxiety, depression NURSE EPIDEMIOLOGIST history: Reports: no NURSE EPIDEMIOLOGIST history - Social History Smoking Status: Never smoker Smokeless Tobacco Status: No Alcohol use: Reports: none Drug use: Reports: none Physical Exam - General Limitations: no limitations General appearance: alert, in distress, obese Course Vital Signs Temperature 98.1 F 02/24/18 14:34 Pulse Rate 107 02/24/18 14:34 Respiratory Rate 16 02/24/18 14:34 Blood Pressure 98/64 02/24/18 14:34 O2 Sat by Pulse Oximetry 98 02/24/18 14:34 Temperature 98.1 F 02/24/18 14:37 Pulse Rate 98 02/24/18 15:00 Respiratory Rate 20 02/24/18 15:00 Blood Pressure 102/50 02/24/18 15:00 O2 Sat by Pulse Oximetry 99 02/24/18 15:00 Oxygen Delivery Oxygen Delivery Room Air Medical Decision Making - Lab Data Result diagrams: 02/24/18 15:06 02/24/18 15:06 Lab Results 02/24/18 02/24/18 02/24/18 Range/Units 15:06 15:06 16:05 WBC 21.9 H (4.3-11.1) K/mcL RBC 3.57 L (3.82-4.97) M/mcL Hgb 10.0 L (11.5-15.4) g/dL Hct 28.9 L (35.3-44.9) % MCV 81.0 L D (83.0-100.0) fL MCH 28.0 (28.0-33.3) pg MCHC 34.6 (31.6-35.5) g/dL RDW 16.3 H (11.5-14.5) % Plt Count 126 L (140-400) K/mcL MPV 10.8 (9.4-12.4) fL Immature Gran % 7.0 H (0-4) % Seg Neutrophils % 82.2 % Lymphocytes % 3.1 % Monocytes % 7.5 % Eosinophils % 0.0 % Basophils % 0.2 % Neutrophils # 18.0 H (1.6-8.9) K/mcL Lymphocytes # 0.7 (0.6-4.6) K/mcL Monocytes # 1.6 H (0.0-1.3) K/mcL Eosinophils # 0.0 (0.0-0.6) K/mcL Basophils # 0.0 (0.0-0.2) K/mcL Sodium 125 L (136-145) mEq/L Potassium 3.9 (3.5-5.1) mEq/L Chloride 94 L (98-107) mEq/L Carbon Dioxide 17 L (23-29) mEq/L BUN 48 H (8-23) mg/dL Creatinine 3.79 H (0.60-1.20) mg/dL Est GFR ( Amer) 14 L (> 60) Est GFR (Non-Af Amer) 12 L (> 60) BUN/Creatinine Ratio 13 (6-26) Glucose 198 H (70-105) mg/dL Calculated Osmolality 278 L (280-300) Lactic Acid 2.2 (0.5-2.2) mmol/L Calcium 8.8 (8.6-10.3) mg/dL Total Bilirubin 0.9 (0.3-1.0) mg/dL AST 15 (13-39) Units/L ALT 11 (7-52) Units/L Alkaline Phosphatase 126 H (34-104) Units/L Troponin I 0.05 H* (< 0.04) ng/mL Serum Total Protein 6.5 (6.4-8.9) g/dL Albumin 3.3 L (3.5-5.7) g/dL Globulin 3.2 (2.4-3.5) g/dL Albumin/Globulin Ratio 1.0 L (1.1-2.2) Lipase 6 L (11-82) Units/L Urine Color (Yellow) Urine Clarity (Clear) Urine pH (5.0-8.0) pH Units Ur Specific [place] (1.010-1.025) Urine Protein (Neg-Trace) mg/dL Urine Glucose (UA) (Normal) mg/dL Urine Ketones (Negative) mg/dL Urine Blood (Negative) Urine Nitrite (Negative) Urine Bilirubin (Negative) Urine Urobilinogen (Normal) mg/dL Ur Leukocyte Esterase (Negative) 02/24/18 Range/Units 16:08 WBC (4.3-11.1) K/mcL RBC (3.82-4.97) M/mcL Hgb (11.5-15.4) g/dL Hct (35.3-44.9) % MCV (83.0-100.0) fL MCH (28.0-33.3) pg MCHC (31.6-35.5) g/dL RDW (11.5-14.5) % Plt Count (140-400) K/mcL MPV (9.4-12.4) fL Immature Gran % (0-4) % Seg Neutrophils % % Lymphocytes % % Monocytes % % Eosinophils % % Basophils % % Neutrophils # (1.6-8.9) K/mcL Lymphocytes # (0.6-4.6) K/mcL Monocytes # (0.0-1.3) K/mcL Eosinophils # (0.0-0.6) K/mcL Basophils # (0.0-0.2) K/mcL Sodium (136-145) mEq/L Potassium (3.5-5.1) mEq/L Chloride (98-107) mEq/L Carbon Dioxide (23-29) mEq/L BUN (8-23) mg/dL Creatinine (0.60-1.20) mg/dL Est GFR ( Amer) (> 60) Est GFR (Non-Af Amer) (> 60) BUN/Creatinine Ratio (6-26) Glucose (70-105) mg/dL Calculated Osmolality (280-300) Lactic Acid (0.5-2.2) mmol/L Calcium (8.6-10.3) mg/dL Total Bilirubin (0.3-1.0) mg/dL AST (13-39) Units/L ALT (7-52) Units/L Alkaline Phosphatase (34-104) Units/L Troponin I (< 0.04) ng/mL Serum Total Protein (6.4-8.9) g/dL Albumin (3.5-5.7) g/dL Globulin (2.4-3.5) g/dL Albumin/Globulin Ratio (1.1-2.2) Lipase (11-82) Units/L Urine Color Yellow (Yellow) Urine Clarity Turbid A (Clear) Urine pH 6.0 (5.0-8.0) pH Units Ur Specific [place] 1.010 (1.010-1.025) Urine Protein 100 H (Neg-Trace) mg/dL Urine Glucose (UA) Normal (Normal) mg/dL Urine Ketones Negative (Negative) mg/dL Urine Blood Moderate H (Negative) Urine Nitrite Negative (Negative) Urine Bilirubin Negative (Negative) Urine Urobilinogen Normal (Normal) mg/dL Ur Leukocyte Esterase Large H (Negative) Attestation Statement - Attestation Attestation: I, Iker Colvin DO, examined this patient [id number] and my medical decision-making was reviewed with Terry Espinosa, Resident Physician. I agree with the documented findings, disposition and treatment plan as described except to the extent set forth below. Please see my progress notes for details. 72-year-old female presents emergency room with complaint of abdominal pain nausea vomiting or diarrhea has been present since Sunday. She is also describing some pain in her right leg. Currently she is denying chest pain shortness of breath headache vision changes fevers or chills. She has not traveled outside the country. She has not ate anything out of the ordinary. Patient has not been able to eat or drink very much at home over the last several days. She has been drinking okay today but the diarrhea has been persistent. Concern is concerned because she has been describing generalized malaise abdominal discomfort and pain in the legs worse this point she has not been able to get up and get her under hospice. Physical exam shows a well- appearing female in no specific distress at this time. Lungs are clear heart is regular his membranes are moist. She is alert she is oriented she speaks in full sentences. Abdomen is soft there is no guarding no rigidity no peritoneal symptoms. Bowel sounds are present all 4 quadrants. Patient is still having diarrhea today but denies any vaginal discharge or burning sensation or discomfort in her genitourinary area. She does have pain in the posterior aspect of the right knee with some visible swelling in comparison to left. She does have a history of previous DVT on that side. Otherwise patient is asymptomatic at this point outside of abdominal pain and discomfort. Physical exam is concerning for etiology including abdominal related pathology as well as right lower extremity issues. Doppler the right lower extremity as well as CT the abdomen noncontrast urinalysis chest x-ray EKG CBC chemistry and troponin will be collected resulted at this point. Patient otherwise clinical stable. Disposition pending the full workup and treatment course. See detailed documentation of the physical exam, medical intervention, medical decision-making and disposition in the resident physician's note. No critical care by the patient's treatment course at this time. 1600 Patient is still waiting for urinalysis at this time. CT imaging the abdomen is concerning for perinephric stranding as well as colitis. Patient lab derangements including hyponatremia and acute kidney injury with creatinine doubled from previous evaluation in January. Fluids will be given including the initial first liter. Patient's initial heart rate and blood pressure were concerning. Patient does have an elevated white blood cell count. At this point she does meet sepsis criteria with the source as well as abnormal vital signs and white blood cell count but does not show any acute signs of septic shock. Fluids will be provided as well as antibiotics at the appropriate dosing. His nose acute signs of pulmonary congestion the chest x-ray and patient does not have a specific history of congestive heart failure. Disposition pending the workup treatment course the patient will most likely require admission. Troponin is most likely secondary to stress. Patient does not have any acute signs of septic shock but does meet criteria for sepsis. Fluids included 2 L of normal saline and antibiotics have been ordered. Admission process will be completed. The hospitalist was contacted no other recommendations or concerns were noted
[2018-02-24 15:49] LABS: Albumin 3.3 g/dL (3.5-5.7); Bilirubin,Total 0.9 mg/dL (0.3-1.0); Calcium 8.8 mg/dL (8.6-10.3); Globulin 3.2 g/dL (2.4-3.5); Potassium 3.9 mEq/L (3.5-5.1); Total Protein 6.5 g/dL (6.4-8.9)
[2018-02-24] MEDS ORDERED: *HR* FentaNYL (PF) 100 MCG/2 ML VIAL IVP ONE (15:59)
[2018-02-24] MEDS ORDERED: MetroNIDAZOLE 500 MG/100 ML 500 MG/100 ML BAG IVPB ONE (16:08)
[2018-02-24] MEDS ORDERED: 0.9 % Sodium Chloride 1,000 ML IVC SCH ×2 (16:15→18:30)
[2018-02-24 16:23] LABS: Bilirubin,Urine Negative (Negative); Blood,Urine Moderate (Negative); Clarity,Urine Turbid (Clear); Color,Urine Yellow (Yellow); Glucose,Urine (UA) Normal (Normal); Ketones,Urine Negative (Negative); Leukocyte Esterase,Urine Large (Negative); Nitrite,Urine Negative (Negative); Protein,Urine 100 mg/dL (Neg-Trace); Urobilinogen,Urine Normal (Normal)
[2018-02-24 16:37] LABS: Troponin I 0.05 ng/mL (< 0.04)
[2018-02-24] MEDS ORDERED: Naloxone 0.4 MG/ML INJ IVP PRN (17:13)
[2018-02-24] MEDS ORDERED: Dextrose Gel 15 GM/37.5 ML TUBE PO PRN ×2 (17:26)
[2018-02-24] MEDS ORDERED: D5% in Water 1,000 ML IVC PRN (17:26)
[2018-02-24] MEDS ORDERED: *HR* Dextrose 50 % in Water (Syg) 50 ML SYRINGE IVP PRN (17:26)
--- NOTE | 2018-02-24 17:30 | Internal Med History&Physical ---
Date of Encounter: 02/24/18 Time of Encounter: 17:34 Internal Medicine - H&P: HPI Chief complaint: Neasea/vomiting/diarrhea Admitted From: Home Plans for Post Hospital Care: Home History of present illness: Ms. Mercedes is a 72 year old female who presents to the emergency department with chief complaint of nausea vomiting and diarrhea. The patient states that for the past 5-6 days she is been ill with nausea vomiting and diarrhea. Patient states she has been unable to keep any water or food down at all. Patient visited urgent care yesterday who gave the patient Zofran however the patient's nausea was not improved and continued to have vomiting and diarrhea and presented today. Patient denies any recent antibiotic use or sick contacts. Patient states that approximately 4 days ago she started taking Pepto -Bismol for the nausea and subsequently did developed black diarrhea for the past 2-3 days. Patient denies any chest pain, shortness of breath, palpitations , neck pain, blurry vision, double vision, headache. Patient admits to nausea, vomiting, diarrhea, generalized weakness and fatigue, subjective fevers and worsening chills. In the emergency department the patient was found to have worsening renal failure with significant leukocytosis as well as a mildly elevated troponin and hyponatremia. He should also noted to be tachycardic with low normal blood pressures which have been improved with IV fluids. Imaging revealed findings consistent with colitis. Patient will be admitted with sepsis and continue to colitis and acute on chronic renal failure with volume depletion. Past Med Surg Social Fam HX - Past Medical History Medical history: DVT, diabetes, hypertension, renal disease, other Additional medical history: sclerosis Psychiatric history: anxiety, depression - Past Surgical History Surgical History: knee replacement Additional surgical history: Steroid injection to knee, right knee surgery-, left knee surgery-2009,left total shoulder replacement reverse biceps tenodesis-04/03/16 - Social History Smoking Status: Never smoker Smokeless Tobacco Status: No Alcohol use: none Drug use: none - Family History Father Living Status: Hx Family Cardiac Disorders: Yes (Enlarged heart) Hx Family Respiratory Disorders: No Hx Family Cancer: Yes Hx Family GI Disorders: No Hx Family Endocrine Disorder: Yes (Diabetes) Hx Family Neuromuscular Disorders: No Hx Family Neurologic Disorders: No Hx Family HEENT Disorders: No Hx Family Autoimmune Disorders: No Mother Living Status: Hx Family Cardiac Disorders: Yes (OK) Hx Family Cancer: Yes (Breast cancer) Internal Medicine - H&P: Meds Atorvastatin [Lipitor] 40 mg PO HS #0 02/23/15 [History] Furosemide [Lasix] 20 mg PO DAILY #0 02/23/15 [History] Losartan Potassium [Cozaar] 100 mg PO DAILY #0 02/23/15 [History] Insulin ASPART [Novolog] 10 - 15 unit SQ TIDWM 01/15/16 [History] Warfarin [Coumadin] 3 mg PO HS 04/03/16 [History] EPINEPHrine [Epipen] 0.3 mg IM ONCE PRN #1 kit 05/03/17 [Rx] Insulin Glargine [Lantus] 36 unit SQ QAM 09/12/17 [History] Adalimumab [Humira] 40 mg SQ MANRIQUEZ 10/03/17 [History] Gabapentin [Neurontin] 100 mg PO HS 10/03/17 [History] Metoprolol XL (24 HR) Succ [Toprol XL] 50 mg PO DAILY 10/03/17 [History] Pantoprazole Sodium [Protonix] 40 mg PO DAILY 10/03/17 [History] Insulin Glargine [Lantus] 14 unit SQ HS 02/24/18 [History] Pramipexole Di-HCl [Pramipexole Dihydrochloride] 0.125 mg PO HS 02/24/18 [ History] Tramadol HCl [Ultram] 50 - 100 mg PO BID PRN 02/24/18 [History] predniSONE [PredniSONE] 10 mg PO BIDWM 02/24/18 [History] 3 Allergy/AdvReac Type Severity Reaction Status Date / Time niacin Allergy Mild Rash Verified 02/23/18 20:09 [From Niaspan Extended-Release] sertraline Allergy Mild Dizziness Verified 02/23/18 20:09 aspirin [ASA] Allergy See Verified 02/23/18 20:09 Comments infliximab [From Remicade] Allergy Rash Verified 02/23/18 20:09 NSAIDS (Non-Steroidal Allergy See Verified 02/23/18 20:09 Anti-Inflamma Comments All Systems PM: A 10-system review of systems was performed and is negative for pertinent findings except as documented above in the HPI. Review of systems: 10 point review of systems is obtained and is otherwise negative other than described in history of present illness - Constitutional Vitals: Temp Pulse Resp BP Pulse Ox 98.1 F 106 20 104/51 100 02/24/18 14:37 02/24/18 17:00 02/24/18 17:00 02/24/18 17:00 02/24/18 17:00 Exam: Constitutional: No acute distress, Alert, appears quite fatigued Psych: AAO x 3 HEENT: NCAT, EOMI, very dry mucous membranes Neck: supple, no JVD Cardio: Tachycardic with regular rhythm, 2/6 systolic murmur appreciated Resp: clear to ascultation bilaterally, no wheezes/rales/ronchi Abd: soft, hyperactive bowel sounds, mildly ttp thoughout, no guarding, rebound ,or rigidity Extremities: no clubbing/cyanosis/edema appreciated Neuro: no focal deficits appreciated Lymph: no obvious adenopathy Internal Med - H&P Results - Labs CBC & Chem 7: 02/24/18 15:06 02/24/18 15:06 - Assessment and plan (1) Severe sepsis Current Visit: Yes Status: Acute Assessment and plan: -Pt meets sepsis criteria with leukocytosis and tachycardia with source of colitis -End organ damage include renal failure and elevated troponin -neausea/vomiting/diarrhea for 5-[address] evidence of colitis and mild perinephric stranding -Given IVF bolus; continue IVF @ 100/hr for now -Blood and urine cultures obtained -Given IV Flagyl and Cipro in ED -Continue IV Flagyl and start IV Rocephin in light of high resistance of ecoli to floroquinolones -lactic initially 2.2 -significant worsening of renal failure; SCr 3.79 on admission -troponin 0.05 on admission -leukocytosis of 21.9 on admission; of note pt recently on steroids (2) Colitis presumed infectious Current Visit: Yes Status: Acute Assessment and plan: 5-6 days of nasuea/vomiting/diarrhea -CT abd revealed Mild perinephric stranding bilaterally without hydronephrosis. Mild wall thickening and inflammation of the proximal right colon. Findings concerning for infectious or inflammatory colitis. -no recent hospitalization or exposure to antibiotics or peresons with c.diff infection; do not currently suspect however will keep on differential -IV rocephin/flagyl -stool studies -blood cultures -reports black diarrhea after starting peptobismol; likely 2/2 peptobismol however pt is on coumadin; will check stool for occult blood (hemoglobin at baseline) -will consider checking for cdiff if no clinical improvment on antibiotics and iv fluids (3) Acute renal failure superimposed on stage 4 chronic kidney disease Current Visit: Yes Status: Acute Assessment and plan: -Pt with acute renal failure with CKD stage IV -Baseline SCr apears to be bewtween 1.9-2.5 recently -most likely etiology is secondary to decreased IVV due to sepsis and volume depletion from vomiting/diarrhea; could be ATN will check UA for casts -however also on arb which likely exacerbated kidney injury; will hold -iv fluids -check FeNa, uPC -ct with no evidence hydronephrosis -mild nephric stranding but pt unsure if dysuria/polyuria present since she hasnt been urinating much since illness started Qualifiers: Acute renal failure type: unspecified Qualified Code(s): N17.9 - Acute kidney failure, unspecified; N18.4 - Chronic kidney disease, stage 4 (severe) (4) Hyponatremia Current Visit: Yes Status: Acute Assessment and plan: Moderate hypovolemic hyponatremia -appears to have history of mild hyponatremia -corrected for hyperglycemia is 127 -continue IVF in light of sepsis and hypovolemia -monitor sodium level in am -was also on lasix; will hold (5) Diabetes mellitus Current Visit: Yes Status: Acute Assessment and plan: -Resume half of home regiemin due to severely decreased intake -low dose sliding scale coverage -monitor accuchecks -clear liquid diabetic diet Qualifiers: Diabetes mellitus type: type 2 Diabetes mellitus snf insulin use: with longwall foreman use Diabetes mellitus complication status: with kidney complications Diabetes mellitus complication detail: with chronic kidney disease Chronic kidney disease stage: stage 4 (severe) Qualified Code(s): E11.22 - Type 2 diabetes mellitus with diabetic chronic kidney disease; N18.4 - Chronic kidney disease, stage 4 (severe); Z79.4 - prison (current) use of insulin (6) HTN (hypertension) Current Visit: Yes Status: Acute Assessment and plan: -continue toprolol xl with parameters -arb held -bp low normal -monitor Qualifiers: Hypertension type: essential hypertension Qualified Code(s): I10 - Essential (primary) hypertension (7) Right leg pain Current Visit: Yes Status: Acute Assessment and plan: Right leg pain with history of DVT in that leg 3 months ago per pt -on coumadin -US ordered by ED pending -US done 2 weeks ago shows 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 -slight right knee effusion but not erythematous or exquisitely painful; will monitor if worsens will consult ortho for amniocentesis (8) Elevated troponin Current Visit: Yes Status: Acute Assessment and plan: -Mildly elevated at 0.05 -likely secondary to sepsis with increased demand from tachycardia -no chest pain -ecg ordered in ED pending -trend troponins (9) Sarcoidosis Current Visit: No Status: Chronic Assessment and plan: -on humeria and prednison -hold humeria -continue steroids due to high dose to avoid adrenal insufficiency -pt states her sarcoid involves her liver, lymph nodes and mabey lungs (10) Thrombocytopenia Current Visit: No Status: Chronic Assessment and plan: Mild thrombocytopenia of 126 with history of thrombocytopenia -spleenomegaly with likely chirrosis due to sarcoidosis most likely etiology; these findings seen on imaging today -will monitor due to sepsis (11) Newly recognized heart murmur Current Visit: Yes Status: Acute Assessment and plan: -2/6 systolic murmur appreciated; pt reports no history -no significant valvular abnormalities noted on prior echo 2 years ago -suspect secondary to increased flow due to sepsis -check 2d echocardiogram - Time Spent With Patient Total time spent is greater than 50% in coordination of care (as documented) at patient's floor/unit and/or counseling patient: Greater than 35 minutes
[2018-02-24] MEDS ORDERED: cefTRIAXone 2,000 MG in Water for inj. (sterile) 20 ML 20 ML IVPB SCH (18:00)
[2018-02-24] MEDS ORDERED: Warfarin perPT PO PRN (18:00)
[2018-02-24 19:03] LABS: INR 8.6; Prothrombin Time 97.6 Seconds (9.4-12.1)
[2018-02-24] MEDS ORDERED: *HR* Phytonadione 5 MG TABLET PO ONE (19:10)
--- NOTE | 2018-02-24 19:10 | Event Note ---
Date of Encounter: 02/24/18 Time of Encounter: 19:08 Notified by RN of INR of 8.6 and PT of 97.6. -pt not actively bleeding although the black diarrhea she had could very well have been blood -will order 2.5mg of vitamin K po and hold coumadin -will type and screen -will trend h/h -start iv protonix bid prophalactically
[2018-02-24] MEDS: cefTRIAXone 2,000 MG in Water for inj. (sterile) 20 ML 20 ML IVP SCH (19:31)
[2018-02-24] MEDS: Pantoprazole 40 MG VIAL IVP SCH (19:32)
[2018-02-24 20:10] LABS: Basophils % 0.1 %; Red Cell Distribution Width 16.1 % (11.5-14.5)
[2018-02-24 20:11] LABS: Eosinophils % 0.1 %; Hematocrit 26.2 % (35.3-44.9); Immature Granulocytes % 2.9 % (0-4); Immature Platelets 5.4 % (1.1-6.1); Lymphocytes # 0.5 K/mcL (0.6-4.6); Lymphocytes % 3.6 %; Mean Corpuscular HGB Conc 34.4 g/dL (31.6-35.5); Mean Corpuscular Hemoglobin 28.1 pg (28.0-33.3); Mean Corpuscular Volume 81.9 fL (83.0-100.0); Mean Platelet Volume 10.4 fL (9.4-12.4); Monocytes % 6.8 %; Segmented Neutrophils % 86.5 %
[2018-02-24] MEDS ORDERED: *HR* Warfarin 3 MG TABLET PO SCH (21:00)
[2018-02-24] MEDS ORDERED: Insulin DETEMIR 100 UNIT/ML X5UNITS SQ SCH (21:00)
[2018-02-24 21:03] LABS: Anisocytosis 1+ (Not Present); Platelet Estimate Decreased (Normal)
[2018-02-24 21:04] LABS: Neutrophils # 12.7 K/mcL (1.6-8.9); Platelet Count 93 K/mcL (140-400)
[2018-02-24 21:16] LABS: Protein/Creatinine Ratio,Urine 2.33 mg/mg (0.00-0.20); Sodium, Urine 24.9 mEq/L
[2018-02-24] MEDS ORDERED: Acetaminophen 650 MG RECTAL SUPP RC ONE (21:54)
[2018-02-24] MEDS: Insulin LISPRO 300 UNITS/3 ML VIAL SQ SCH (22:12)
[2018-02-24] MEDS: 0.9 % Sodium Chloride 1,000 ML IVC SCH (23:33)
[2018-02-24] MEDS: MetroNIDAZOLE 500 MG/100 ML 500 MG/100 ML BAG IVPB SCH (23:43)
[2018-02-25] MEDS: 0.9 % Sodium Chloride 1,000 ML IVC SCH (01:06)
[2018-02-25] MEDS ORDERED: 0.9 % Sodium Chloride 500 ML IVC ONE ×2 (01:40→02:28)
[2018-02-25 02:57] LABS: Red Cell Distribution Width 16.2 % (11.5-14.5)
[2018-02-25 02:59] LABS: Hematocrit 22.8 % (35.3-44.9); Hemoglobin 7.7 g/dL (11.5-15.4); Immature Platelets 5.1 % (1.1-6.1); Mean Corpuscular HGB Conc 33.8 g/dL (31.6-35.5); Mean Corpuscular Volume 82.9 fL (83.0-100.0); Red Blood Count 2.75 M/mcL (3.82-4.97)
[2018-02-25 03:15] LABS: Calcium 7.3 mg/dL (8.6-10.3); Magnesium 1.3 mg/dL (1.6-2.6); Phosphorous 3.9 mg/dL (2.7-4.5); Potassium 3.4 mEq/L (3.5-5.1)
[2018-02-25] MEDS ORDERED: 0.9 % Sodium Chloride 1,000 ML IVC SCH ×2 (03:17→03:23)
[2018-02-25 03:22] LABS: Prothrombin Time 115.4 Seconds (9.4-12.1)
[2018-02-25 03:23] LABS: INR 10.2
[2018-02-25 03:24] LABS: Platelet Count 80 K/mcL (140-400)
[2018-02-25 03:27] LABS: Neutrophils # 10.9 K/mcL (1.6-8.9); Platelet Estimate Slight Decrease (Normal)
[2018-02-25 03:28] LABS: Anisocytosis 1+ (Not Present)
[2018-02-25 05:44] LABS: Troponin I 0.03 ng/mL (< 0.04)
[2018-02-25] MEDS: Pantoprazole 40 MG VIAL IVP SCH ×2 (06:07→17:03)
[2018-02-25] MEDS: traMADol 50 MG TABLET PO PRN ×2 (06:07→15:15)
[2018-02-25] MEDS: cefTRIAXone 2,000 MG in Water for inj. (sterile) 20 ML 20 ML IVP SCH (06:07)
[2018-02-25 07:39] LABS: Acinetobacter baumannii by PCR Not Detected (Not Detect); Candida albicans by PCR Not Detected (Not Detect); Candida glabrata by PCR Not Detected (Not Detect); Candida krusei by PCR Not Detected (Not Detect); Candida parapsilosis by PCR Not Detected (Not Detect); Candida tropicalis by PCR Not Detected (Not Detect); Enterobacter cloacae Cmplx PCR Not Detected (Not Detect); Enterobacteriaceae by PCR DETECTED (Not Detect); Enterococcus by PCR Not Detected (Not Detect); Escherichia coli by PCR DETECTED (Not Detect); Klebsiella oxytoca by PCR Not Detected (Not Detect); Klebsiella pneumoniae by PCR Not Detected (Not Detect); Proteus by PCR Not Detected (Not Detect); Pseudomonas aeruginosa by PCR Not Detected (Not Detect); Serratia marcescens by PCR Not Detected (Not Detect); Staphylococcus aureus by PCR Not Detected (Not Detect); Staphylococcus by PCR Not Detected (Not Detect); Streptococcus agalactiae(B)PCR Not Detected (Not Detect); Streptococcus by PCR Not Detected (Not Detect); Streptococcus pneumoniae PCR Not Detected (Not Detect); Streptococcus pyogenes (A) PCR Not Detected (Not Detect); blaKPC Carbapenem-Resist Gene Not Detected (Not Detect); mecA Methicillin-Resist Gene Not Detected (Not Detect); vanA/B Vancomycin-Resist Genes Not Detected (Not Detect)
[2018-02-25] MEDS ORDERED: predniSONE 10 MG TABLET PO SCH (08:00)
[2018-02-25] MEDS: Insulin LISPRO 300 UNITS/3 ML VIAL SQ SCH ×6 (08:14→21:38)
--- NOTE | 2018-02-25 08:16 | Internal Med Progress Note ---
Hospitalist Progress Note - Encounter Date of Encounter: 02/25/18 Time of Encounter: 08:16 - Subjective Interval History: Patient seen and examined at bedside. Overnight the patient INR was found INR over 8 and was given by mouth vitamin K. INR continued to increase to over 10 and the patient was given 2 units of FFP. No active bleeding but decrease in hemoglobin to 7.7. Blood pressure has been low and given 5L of IVF boluses and started on maintenence with slightly improvement in BP. She states that she feels similar to when she came in. Patient denies any chest pain, shortness of breath. Patient admits to abdominal pain and soreness but no further diarrhea and nausea is improved. Pt states she has only urinated one time with a small amount of urine produced. Due to continued low blood pressure and concern for DIC ICU was consulted and contacted this AM; currently evaluating. Explained to pt and daughter the severity of the pts illness and risk of decompensation. Blood cultures positive gram negative rods. - Exam Vitals: Temp Pulse Resp BP Pulse Ox 97.9 F 95 16 93/52 96 02/25/18 07:40 02/25/18 07:40 02/25/18 07:40 02/25/18 07:40 02/25/18 07:40 Exam: Constitutional: No acute distress, Alert, appears quite fatigued Psych: AAO x 3 HEENT: NCAT, EOMI Neck: supple, no JVD Cardio: mildly tachycardic with regular rhythm, 2/6 systolic murmur Resp: clear to ascultation bilaterally Abd: soft, hyperactive bowel sounds, mild ttp throughout Extremities: no clubbing/cyanosis/edema appreciated Neuro: no focal deficits appreciated - Assessment and Plan (1) Severe sepsis Current Visit: Yes Status: Acute Assessment and Plan: -Pt meets sepsis criteria with leukocytosis and tachycardia with source of colitis -End organ damage include renal failure and elevated troponin -neausea/vomiting/diarrhea for 5-[address] evidence of colitis and mild perinephric stranding -Given 5L boluses; continue maitenence IVF may need albumin -Given IV Flagyl and Cipro in ED -Blood culutres positive with gram negative rods; will repeat -Continue IV Flagyl and and expand to IV Zosyn -lactic initially 2.2; down to 0.08 -significant worsening of renal failure; SCr 3.79 on admission; 3.46 today -troponin 0.05 on admission; trended down -leukocytosis of 21.9 on admission down to 13.0; on steroids -blood pressure with systolic in 80-90s; may be developing shock -ICU consulted; being transfered currently (2) DIC (disseminated intravascular coagulation) Current Visit: Yes Status: Acute Assessment and Plan: -Suspect early DIC due to sepsis -INR on admission found to be 8.6; given 2.5 po vitamin K given -INR increased to 10.2 and given 2 units FFP -Repeat INR pending -PT elevated -check PTT, fibrin, peripheral smear -consulted Hematology; due to chornicity of DVT will treat DIC as normally would -continue to treat sepsis with ABX -trend coags -hematology recommends FFP to get INR down and will repeat vitamin K; will give 5mg IV -if fibrinogen <150-200 can give cryoprecipitate per hematoligst (3) Colitis presumed infectious Current Visit: Yes Status: Acute Assessment and Plan: 5-6 days of nasuea/vomiting/diarrhea -CT abd revealed Mild perinephric stranding bilaterally without hydronephrosis. Mild wall thickening and inflammation of the proximal right colon. Findings concerning for infectious or inflammatory colitis. -no recent hospitalization or exposure to antibiotics or peresons with c.diff infection -IV flagyl and change rocephin to zosyn -stool studies Pending; check cdiff -start emperic oral vanco due to worsening of condition -blood cultures with gram negative rods -reports black diarrhea after starting peptobismol; however INR >8 on admission with downtrending hemoglobin -consult ID (4) Acute renal failure superimposed on stage 4 chronic kidney disease Current Visit: Yes Status: Acute Assessment and Plan: -Pt with acute renal failure with CKD stage IV -Baseline SCr apears to be bewtween 1.9-2.5 recently -creatinine slightly improved to 3.46 but developing oliguria -most likely etiology is secondary to decreased IVV due to sepsis and volume depletion from vomiting/diarrhea; could be ATN will check UA for casts -however also on arb which likely exacerbated kidney injury; will hold -iv fluids -check FeNa, uPC -> pending -ct with no evidence hydronephrosis -mild nephric stranding but pt unsure if dysuria/polyuria present since she hasnt been urinating much since illness started -may need to consult nephro if urine output drops or develops indication for HD (5) Hyponatremia Current Visit: Yes Status: Acute Assessment and Plan: Moderate hypovolemic hyponatremia -appears to have history of mild hyponatremia -corrected for hyperglycemia is 127; 129 this am -continue IVF in light of sepsis and hypovolemia -monitor sodium level in am -was also on lasix; will hold (6) Diabetes mellitus Current Visit: Yes Status: Acute Assessment and Plan: -Resume half of home regiemin due to severely decreased intake -low dose sliding scale coverage -monitor accuchecks -clear liquid diabetic diet (7) HTN (hypertension) Current Visit: Yes Status: Acute Assessment and Plan: -hold bp meds -arb held -bp low normal -monitor (8) Right leg pain Current Visit: Yes Status: Acute Assessment and Plan: Right leg pain with history of DVT that is chronic -on coumadin; held -US ordered confirmed dvt -US done 2 weeks ago shows 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 -slight right knee effusion but not erythematous or exquisitely painful; continue to monitor -may need arthrocentesis if worsens (9) Elevated troponin Current Visit: Yes Status: Acute Assessment and Plan: -Mildly elevated at 0.05 -downtrended twice -likely secondary to sepsis with increased demand from tachycardia -no chest pain (10) Sarcoidosis Current Visit: No Status: Chronic Assessment and Plan: -on humeria and prednison -hold humeria -continue steroids due to high dose to avoid adrenal insufficiency -pt states her sarcoid involves her liver, lymph nodes and mabey lungs (11) Thrombocytopenia Current Visit: Yes Status: Chronic Assessment and Plan: Mild thrombocytopenia of 126 with history of thrombocytopenia -downtrending; suspect DIC; see above (12) Newly recognized heart murmur Current Visit: Yes Status: Acute Assessment and Plan: -2/6 systolic murmur appreciated; pt reports no history -no significant valvular abnormalities noted on prior echo 2 years ago -suspect secondary to increased flow due to sepsis -check 2d echocardiogram DVT Prophylaxis: SCDs, start heparin/lovenox if anemia stabilizes - Summary of Assessment and Plan Summary of Assessment and Plan: Patient with gram-negative yonis bacteremia secondary to colitis. Also with severe sepsis and possibly developing septic shock. Expand antibiotics to Zosyn and continue Flagyl. We will add empiric oral vancomycin and check C. difficile studies. Stool studies still pending. Likely developing early DIC due to sepsis. Stress dose steroids started. Discussed at length with patient and daughter the severity of the patient's illness. Patient at very high risk for complications and further deterioration. Consult ID Consult hematology Consult licensed physical therapist Transfered to ICU - Time Spent with Patient Total time spent is greater than 50% in coordination of care (as documented) at patient's floor/unit and/or counseling patient: Greater than 35 minutes Plan of Care Discussed with: patient Internal Medicine: Result - Labs CBC & Chem 7: 02/25/18 02:41 02/25/18 02:41 Labs: Short CBC 02/24/18 02/25/18 Range/Units 19:42 02:41 WBC 14.4 H 13.0 H (4.3-11.1) K/mcL Hgb 9.0 L 7.7 L (11.5-15.4) g/dL Hct 26.2 L 22.8 L (35.3-44.9) % Plt Count 93 L 80 L (140-400) K/mcL Neutrophils # 12.7 H 10.9 H (1.6-8.9) K/mcL BMP 02/25/18 02:41 Sodium 129 L Potassium 3.4 L Chloride 105 Carbon Dioxide 16 L BUN 45 H Creatinine 3.46 H Glucose 116 H Calcium 7.3 L Cardiac Enzymes 02/24/18 02/25/18 Range/Units 21:00 02:41 Troponin I 0.03 0.03 (< 0.04) ng/mL - ABG Interpretation ABG results: PT/INR, D-dimer PT 115.4 Seconds (9.4-12.1) H* 02/25/18 02:41 Consult Discharge Plan - Plan Referrals: Conchita Lovett MD [Primary Care Provider] - (4) Acute renal failure superimposed on stage 4 chronic kidney disease Qualifiers: Acute renal failure type: unspecified Qualified Code(s): N17.9 - Acute kidney failure, unspecified; N18.4 - Chronic kidney disease, stage 4 (severe) (6) Diabetes mellitus Qualifiers: Diabetes mellitus type: type 2 Diabetes mellitus assisted insulin use: with assisted use Diabetes mellitus complication status: with kidney complications Diabetes mellitus complication detail: with chronic kidney disease Chronic kidney disease stage: stage 4 (severe) Qualified Code(s): E11.22 - Type 2 diabetes mellitus with diabetic chronic kidney disease; N18.4 - Chronic kidney disease, stage 4 (severe); Z79.4 - jail (current) use of insulin (7) HTN (hypertension) Qualifiers: Hypertension type: essential hypertension Qualified Code(s): I10 - Essential (primary) hypertension
--- NOTE | 2018-02-25 08:49 | Pulmonology Progress Note ---
<ChuckShlomo W - Last Filed: 02/25/18 09:53> Date of Encounter: 02/25/18 Objective PUL Vital signs: Last Vital Signs Temp 99.7 F H 02/25/18 09:19 Pulse 87 02/25/18 09:19 Resp 22 02/25/18 09:19 BP 113/55 02/25/18 09:19 Pulse Ox 100 02/25/18 08:14 Results - Laboratory Findings CBC and BMP: 02/25/18 08:46 02/25/18 08:46 PT/INR, D-dimer PT 115.4 Seconds (9.4-12.1) H* 02/25/18 02:41 Abnormal lab findings: Abnormal lab results WBC 15.3 K/mcL (4.3-11.1) H 02/25/18 08:46 RBC 3.35 M/mcL (3.82-4.97) L 02/25/18 08:46 Hgb 9.1 g/dL (11.5-15.4) L 02/25/18 08:46 Hct 27.7 % (35.3-44.9) L 02/25/18 08:46 MCV 82.7 fL (83.0-100.0) L 02/25/18 08:46 MCH 27.2 pg (28.0-33.3) L 02/25/18 08:46 RDW 16.7 % (11.5-14.5) H 02/25/18 08:46 Plt Count 102 K/mcL (140-400) L 02/25/18 08:46 Band Neutrophils % 6.0 % (0-4) H 02/25/18 02:41 Neutrophils # 10.9 K/mcL (1.6-8.9) H 02/25/18 02:41 Platelet Estimate Slight Decrease (Normal) L 02/25/18 02:41 Anisocytosis 1+ (Not Present) A 02/25/18 02:41 PT 115.4 Seconds (9.4-12.1) H* 02/25/18 02:41 INR 10.2 H* 02/25/18 02:41 Sodium 132 mEq/L (136-145) L 02/25/18 08:46 Carbon Dioxide 17 mEq/L (23-29) L 02/25/18 08:46 BUN 44 mg/dL (8-23) H 02/25/18 08:46 Creatinine 3.31 mg/dL (0.60-1.20) H 02/25/18 08:46 Est GFR ( Amer) 17 (> 60) L 02/25/18 08:46 Est GFR (Non-Af Amer) 14 (> 60) L 02/25/18 08:46 POC Glucose 188 mg/dL (70-99) H 02/24/18 21:30 Calcium 7.5 mg/dL (8.6-10.3) L 02/25/18 08:46 Magnesium 1.3 mg/dL (1.6-2.6) L 02/25/18 02:41 Direct Bilirubin 0.3 mg/dL (0.0-0.2) H 02/25/18 08:46 Serum Total Protein 5.3 g/dL (6.4-8.9) L 02/25/18 08:46 Albumin 2.8 g/dL (3.5-5.7) L 02/25/18 08:46 Lipase 6 Units/L (11-82) L 02/24/18 15:06 Urine Clarity Turbid (Clear) A 02/24/18 16:08 Urine Protein 100 mg/dL (Neg-Trace) H 02/24/18 16:08 Urine Blood Moderate (Negative) H 02/24/18 16:08 Ur Leukocyte Esterase Large (Negative) H 02/24/18 16:08 Protein/Creatinin Ratio 2.33 mg/mg (0.00-0.20) H 02/24/18 20:30 Urine Total Protein 161 mg/dL (1-14) H 02/24/18 20:30 Enterobacteriac sp PCR DETECTED (Not Detect) A 02/24/18 16:28 E. coli (PCR) DETECTED (Not Detect) A 02/24/18 16:28 - Microbiology Findings Microbiology Findings: Microbiology, Last 48 Hours 02/25/18 08:50 Blood Culture - Preliminary Peripheral Venipuncture Culture is incubating and being continuously monitored for growth. Final report to follow. 02/25/18 08:53 Blood Culture - Preliminary Peripheral Venipuncture Culture is incubating and being continuously monitored for growth. Final report to follow. - Clinical Findings Intake & Output: Intake & Output 02/24/18 02/25/18 02/25/18 23:59 07:59 15:59 Intake Total 4239 / 4239 50.5 / 50.5 Output Total 200 / 200 600 / 600 Balance -200 / -200 3639 / 3639 50.5 / 50.5 Weight 81.4 kg Consult Discharge Plan - Plan Referrals: Conchita Lovett MD [Primary Care Provider] - - Attending Attestation I examined this patient and my medical decision-making was reviewed with the Resident Physician. I agree with the documented findings, disposition and treatment plan as described except to the extent set forth below. We independently had [id number] contact with the patient I spent 34min of Critical Care time with this patient. It involved decision making of high complexity to assess, manipulate, and support vital organ system failure and/or to prevent further life threatening deterioration of the patient' s condition. The time involved in the performance of separately reportable procedures was not counted toward critical care time. Patient seen and examined at bedside Labs, radiology, chart personally reviewed. Management was reviewed during multidisciplinary critical care rounds. STAND IN: The patient is awake and alert no focal deficits at this time she is at high risk for spontaneous intracerebral hemorrhage given thrombocytopenia and coagulopathy we will monitor this closely Pulm: Patient has history of pulmonary sarcoidosis but at this time is acceptable oxygenation on simple oxygen mask she is a high risk for hydrostatic pulmonary day given the crystalloid infusions over last 24 hours may need noninvasive ventilation based upon clinical course Cards: Patient has hypertension without evidence of shock suspect this is related to severe sepsis with evidence of multiorgan system dysfunction. We will challenge with 5% albumin if no response and persistently hypotensive may need vasopressor support GI: There is evidence of colitis on CT scan she is being treated with antibiotics sending stool sample for serology including C. difficile Nutrition: we will keep nothing by mouth except for medications at this time Renal: The patient has acute kidney injury which is likely secondary to sepsis and prerenal azotemia we will renally dose all medications as well as avoid nephrotoxins as possible would recommend early involvement with nephrology and so we will place a consult today no acute indication for dialysis at this time. UOP Monitored, Cont to Trend sCr and monitor Electrolytes. ID: Patient is immunocompromised secondary to chronic treatment of pulmonary sarcoidosis. She has evidence of gram-negative bacteremia she is on appropriate antimicrobial therapy with plan a de-escalate based upon clinical course. We have also elected to treat empirically for possibility of C. difficile infection. There is no evidence of multidrug resistant infections in her past Heme/Onc: Life-threatening coagulopathy which is likely secondary to warfarin use possibly coupled with the DIC. with evidence of worsening anemia although on no overt evidence of bleeding at this time we will plan on reversing INR with FFP and vitamin K she has a history of DVT with evidence of chronic venous thromboembolism as the recent as a few months ago high risk for development of an additional VTE with coagulation correction with FFP. We will also evaluate for possibility of DIC by checking fibrinogen given complexity of this course hematology's been consulted and we appreciate the recommendations Endo: Glucose Monitored; she is on chronic Prednisone therapy and so we will administer stress dose hydrocortisone Integ/MSK: Skin Care per routine ICU Nursing Protocol to prevent ulcers. Lines: All lines examined without evidence of infection : Dispo: Transferred to ICU for close monitoring because of high risk of deterioration CODE: Full code I have updated her daughter at bedside <Trudy Arroyo - Last Filed: 02/25/18 14:23> Date of Encounter: 02/25/18 Time of Encounter: 08:48 Assessment and Plan (1) LINDEN (acute kidney injury) Current Visit: Yes Status: Acute Pt has acute renal failure with CKD stage IV. Baseline Creatinine between 1.9- 2.5, slightly improved today from yesterday, but developing oliguria. FeNa 1.1 % yesterday. Insert Last for strict I&O measurement. Monitor kidney function. Consult nephrology as needed. (2) Sarcoid Current Visit: No Status: Chronic Patient on prednisolone 10mg BID, will be given stress dose steroids (3) Thrombocytopenia Current Visit: Yes Status: Chronic Platelets ranged from 80-126 today at 102. Will be given 4 units of FFP today in light of consideration for DIC. (4) Right leg DVT Current Visit: No Status: Chronic Continue to monitor, concern for DIC takes precedence. Qualifiers: Affected thrombotic vein of extremity: unspecified vein of extremity Chronicity: acute Qualified Code(s): I82.401 - Acute embolism and thrombosis of unspecified deep veins of right lower extremity (5) History of immunosuppression therapy Current Visit: No Status: Chronic Pt transferred to the ICU for higher level of care and closer monitoring. IV antibiotics to be adjusted once sensitivity is available. (6) Colitis presumed infectious Current Visit: Yes Status: Acute BC grew E. coli and Enterobacteriacea sp, sensitivities pending. Started pt on oral Vancomycin and IV Zosyn, renally dosed. Stool studies pending. Continue to monitor. (7) Severe sepsis Current Visit: Yes Status: Acute Pt's blood pressures have been soft, HR has been WNL, temperatures normothermic , but UOP has decreased, and BC were positive. Continue IV antibiotics, levophed ordered as needed to maintain MAP >65, and FFP will be given to help intravascular volume improve which should improve blood pressures. Close monitoring. (8) Diabetes mellitus Current Visit: Yes Status: Chronic Glucose monitoring with insulin as necessary. Patient is NPO at present, with long acting insulin and sliding scale for coverage. Qualifiers: Diabetes mellitus type: type 2 Diabetes mellitus extermination inspector insulin use: with chcf use Diabetes mellitus complication status: with kidney complications Diabetes mellitus complication detail: with chronic kidney disease Chronic kidney disease stage: stage 4 (severe) Qualified Code(s): E11.22 - Type 2 diabetes mellitus with diabetic chronic kidney disease; N18.4 - Chronic kidney disease, stage 4 (severe); Z79.4 - terminologist (current) use of insulin (9) Newly recognized heart murmur Current Visit: Yes Status: Acute NO hx of murmur from patient. Now blowing systolic murmur, best appreciated at aortic listening post, likely secondary to sepsis and increased flow. If persistent after initial stabilization, check echo. (10) DIC (disseminated intravascular coagulation) Current Visit: Yes Status: Acute Awaiting fibrinogen results, check haptoglobin, give albumin, and four units of FFP. Check H&H Q6 hours. Give cryoprecipitate if fibrinogen <200. Add 2.5 units Vitamin K per Dr. Burgos in Oncology. Close monitoring. Subjective Principal diagnosis: sepsis Interval history: Pt is a 72 year old female with PMHx of sarcoidosis involving liver, lungs, and lymph nodes treated with prednisone 10mg BID, IDDM, and HTN. She developed N/V/ D six days ago and presented to urgent care day before yesterday and was given Zofran which did not relieve her symptoms. She then presented to [facility] ED yesterday and was admitted to medicine for suspicion of sepsis. This morning, medicine was concerned that she was developing DIC and asked that she be transferred to ICU. After transfer, patient was started on Zosyn with renal dosing, Vancomycin, Albumin, 4 units of FFP, and stress dose steroids. She will be carefully monitored for any changes in the department, with the plan to de- escalate care as she clinically improves. Clinical picture likely due to sepsis , BC were positive for E. coli and Enterobacteriacea sp. with sensitivities pending. Objective PUL Vital signs: Last Vital Signs Temp 98.1 F 02/25/18 08:14 Pulse 92 02/25/18 08:14 Resp 20 02/25/18 08:14 BP 102/66 02/25/18 08:14 Pulse Ox 100 02/25/18 08:14 General appearance: appears uncomfortable Eyes: nonicteric ENT: oropharynx moist Effort: normal Auscultation: bilateral: clear Cardiovascular: regular rate and rhythm, murmur noted (blowing systolic murmur) Gastrointestinal: normoactive bowel sounds Integumentary: other (Abdominal bruising noted) Extremities: no cyanosis, no edema, pink and warm Musculoskeletal: joint tenderness (R knee), other (R leg tender to palpation, swollen when compared to left leg, known DVT) normal mental status mood appropriate, affect normal, anxious Results - Laboratory Findings CBC and BMP: 02/25/18 08:46 02/25/18 08:46 PT/INR, D-dimer PT 115.4 Seconds (9.4-12.1) H* 02/25/18 02:41 Abnormal lab findings: Abnormal lab results WBC 13.0 K/mcL (4.3-11.1) H 02/25/18 02:41 RBC 2.75 M/mcL (3.82-4.97) L 02/25/18 02:41 Hgb 7.7 g/dL (11.5-15.4) L 02/25/18 02:41 Hct 22.8 % (35.3-44.9) L 02/25/18 02:41 MCV 82.9 fL (83.0-100.0) L 02/25/18 02:41 RDW 16.2 % (11.5-14.5) H 02/25/18 02:41 Plt Count 80 K/mcL (140-400) L 02/25/18 02:41 Band Neutrophils % 6.0 % (0-4) H 02/25/18 02:41 Neutrophils # 10.9 K/mcL (1.6-8.9) H 02/25/18 02:41 Platelet Estimate Slight Decrease (Normal) L 02/25/18 02:41 Anisocytosis 1+ (Not Present) A 02/25/18 02:41 PT 115.4 Seconds (9.4-12.1) H* 02/25/18 02:41 INR 10.2 H* 02/25/18 02:41 Sodium 129 mEq/L (136-145) L 02/25/18 02:41 Potassium 3.4 mEq/L (3.5-5.1) L 02/25/18 02:41 Carbon Dioxide 16 mEq/L (23-29) L 02/25/18 02:41 BUN 45 mg/dL (8-23) H 02/25/18 02:41 Creatinine 3.46 mg/dL (0.60-1.20) H 02/25/18 02:41 Est GFR ( Amer) 16 (> 60) L 02/25/18 02:41 Est GFR (Non-Af Amer) 13 (> 60) L 02/25/18 02:41 Glucose 116 mg/dL (70-105) H 02/25/18 02:41 POC Glucose 188 mg/dL (70-99) H 02/24/18 21:30 Calcium 7.3 mg/dL (8.6-10.3) L 02/25/18 02:41 Magnesium 1.3 mg/dL (1.6-2.6) L 02/25/18 02:41 Alkaline Phosphatase 126 Units/L (34-104) H 02/24/18 15:06 Albumin 3.3 g/dL (3.5-5.7) L 02/24/18 15:06 Albumin/Globulin Ratio 1.0 (1.1-2.2) L 02/24/18 15:06 Lipase 6 Units/L (11-82) L 02/24/18 15:06 Urine Clarity Turbid (Clear) A 02/24/18 16:08 Urine Protein 100 mg/dL (Neg-Trace) H 02/24/18 16:08 Urine Blood Moderate (Negative) H 02/24/18 16:08 Ur Leukocyte Esterase Large (Negative) H 02/24/18 16:08 Protein/Creatinin Ratio 2.33 mg/mg (0.00-0.20) H 02/24/18 20:30 Urine Total Protein 161 mg/dL (1-14) H 02/24/18 20:30 Enterobacteriac sp PCR DETECTED (Not Detect) A 02/24/18 16:28 E. coli (PCR) DETECTED (Not Detect) A 02/24/18 16:28 - Clinical Findings Intake & Output: Intake & Output 02/24/18 02/25/18 02/25/18 23:59 07:59 15:59 Intake Total 4239 / 4239 Output Total 200 / 200 600 / 600 Balance -200 / -200 3639 / 3639 Weight 81.4 kg
[2018-02-25] MEDS ORDERED: Insulin DETEMIR 100 UNIT/ML X5UNITS SQ SCH (09:00)
[2018-02-25] MEDS ORDERED: NON-FORMULARY MEDICATION 1 EACH EACH (Pantoprazole Sodium [Protonix] 40 MG) PO SCH (09:00)
[2018-02-25] MEDS ORDERED: Metoprolol XL (24 HR) Succ 50 MG TAB.ER.24H PO SCH (09:00)
[2018-02-25] MEDS: Hydrocortisone Sodium Succ 100 MG/2 ML VIAL IVP SCH ×3 (09:10→21:38)
[2018-02-25 09:21] LABS: Hematocrit 27.7 % (35.3-44.9); Hemoglobin 9.1 g/dL (11.5-15.4); Mean Corpuscular HGB Conc 32.9 g/dL (31.6-35.5); Mean Corpuscular Hemoglobin 27.2 pg (28.0-33.3); Mean Corpuscular Volume 82.7 fL (83.0-100.0); Platelet Count 102 K/mcL (140-400); Red Blood Count 3.35 M/mcL (3.82-4.97); Red Cell Distribution Width 16.7 % (11.5-14.5)
[2018-02-25] MEDS: MetroNIDAZOLE 500 MG/100 ML 500 MG/100 ML BAG IVPB SCH (09:23)
[2018-02-25 09:27] LABS: Albumin 2.8 g/dL (3.5-5.7); Albumin/Globulin Ratio 1.1 (1.1-2.2); Bilirubin,Direct 0.3 mg/dL (0.0-0.2); Bilirubin,Indirect 0.3 mg/dL (0.0-1.2); Bilirubin,Total 0.6 mg/dL (0.3-1.0); Calcium 7.5 mg/dL (8.6-10.3); Globulin 2.5 g/dL (2.4-3.5); Potassium 3.7 mEq/L (3.5-5.1); Total Protein 5.3 g/dL (6.4-8.9)
[2018-02-25] MEDS: Vancomycin Oral Soln 125 MG/2.5 ML UDC PO SCH ×4 (09:43→21:45)
[2018-02-25 10:11] LABS: Uric Acid 7.6 mg/dL (2.3-7.6)
[2018-02-25 10:33] LABS: Lymphocytes # 0.3 K/mcL (0.6-4.6); Monocytes # 0.6 K/mcL (0.0-1.3); Neutrophils # 14.4 K/mcL (1.6-8.9); Platelet Estimate Slight Decrease (Normal)
[2018-02-25 10:34] LABS: Toxic Granulation Present (Not Present)
[2018-02-25 11:01] LABS: Bilirubin,Urine Negative (Negative); Blood,Urine Small (Negative); Clarity,Urine Cloudy (Clear); Color,Urine Yellow (Yellow); Glucose,Urine (UA) Normal (Normal); Ketones,Urine Negative (Negative); Leukocyte Esterase,Urine Moderate (Negative); Nitrite,Urine Negative (Negative); PH,Urine 5.5 pH Units (5.0-8.0); Protein,Urine 30 mg/dL (Neg-Trace); Specific Gravity,Urine 1.014 (1.010-1.025); Urobilinogen,Urine Normal (Normal)
[2018-02-25 11:11] LABS: Sodium, Urine 22.9 mEq/L
[2018-02-25] MEDS: Piperacillin/Tazobactam 3.375 GM in 0.9 % Sodium Chloride Mini Bag 100 ML IVPB SCH ×2 (11:31→21:37)
[2018-02-25 11:38] LABS: Squamous Epithelial Cell,Urine Few per lpf (None-Few)
[2018-02-25 11:39] LABS: WBC,Urine 30-50 per hpf (0-3)
[2018-02-25 11:40] LABS: Amorphous Sediment,Urine Few (Few)
[2018-02-25 11:42] LABS: Bacteria,Urine Few per hpf (None-Few)
[2018-02-25] MEDS ORDERED: Hydrocortisone Sodium Succ 100 MG/2 ML VIAL IVP SCH ×2 (12:00→18:00)
[2018-02-25] MEDS ORDERED: 0.9 % Sodium Chloride 250 ML ONE (14:42)
[2018-02-25 14:59] LABS: Hematocrit 24.9 % (35.3-44.9); Hemoglobin 8.4 g/dL (11.5-15.4)
[2018-02-25 15:01] LABS: INR 2.4; Prothrombin Time 26.9 Seconds (9.4-12.1)
[2018-02-25 15:06] LABS: Albumin 2.5 g/dL (3.5-5.7); Calcium 7.5 mg/dL (8.6-10.3); Potassium 3.5 mEq/L (3.5-5.1)
[2018-02-25 16:38] LABS: INR 1.9; Prothrombin Time 21.7 Seconds (9.4-12.1)
[2018-02-25 16:46] LABS: Albumin 2.7 g/dL (3.5-5.7); Calcium 7.5 mg/dL (8.6-10.3); Phosphorous 4.4 mg/dL (2.7-4.5); Potassium 3.4 mEq/L (3.5-5.1)
[2018-02-25 19:30] LABS: Hematocrit 23.6 % (35.3-44.9); Hemoglobin 8.1 g/dL (11.5-15.4)
[2018-02-25 19:32] LABS: Hematocrit 23.7 % (35.3-44.9); Hemoglobin 8.1 g/dL (11.5-15.4); Immature Granulocytes % 1.7 % (0-4); Lymphocytes # 0.2 K/mcL (0.6-4.6); Lymphocytes % 2.8 %; Mean Corpuscular HGB Conc 34.2 g/dL (31.6-35.5); Mean Platelet Volume 11.1 fL (9.4-12.4); Monocytes # 0.3 K/mcL (0.0-1.3); Monocytes % 4.3 %; Neutrophils # 5.5 K/mcL (1.6-8.9); Red Blood Count 2.89 M/mcL (3.82-4.97); Red Cell Distribution Width 16.2 % (11.5-14.5); Segmented Neutrophils % 91.2 %
[2018-02-25 19:34] LABS: Platelet Count 70 K/mcL (140-400)
[2018-02-25 19:40] LABS: INR 1.8
[2018-02-25 20:10] LABS: Burr Cells 1+ (Not Present)
[2018-02-25 23:29] LABS: INR 1.6; Prothrombin Time 17.9 Seconds (9.4-12.1)
[2018-02-25 23:39] LABS: Albumin 2.8 g/dL (3.5-5.7); Calcium 7.6 mg/dL (8.6-10.3); Phosphorous 5.3 mg/dL (2.7-4.5); Potassium 3.5 mEq/L (3.5-5.1)
[2018-02-26 00:53] LABS: Hematocrit 24.4 % (35.3-44.9); Hemoglobin 8.3 g/dL (11.5-15.4)
[2018-02-26 01:00] LABS: INR 1.2; Prothrombin Time 13.8 Seconds (9.4-12.1)
[2018-02-26 01:07] LABS: Albumin 2.8 g/dL (3.5-5.7); Albumin/Globulin Ratio 1.2 (1.1-2.2); Bilirubin,Total 0.5 mg/dL (0.3-1.0); Calcium 7.7 mg/dL (8.6-10.3); Globulin 2.3 g/dL (2.4-3.5); Magnesium 2.4 mg/dL (1.6-2.6); Phosphorous 5.4 mg/dL (2.7-4.5); Potassium 3.5 mEq/L (3.5-5.1); Total Protein 5.1 g/dL (6.4-8.9)
[2018-02-26] MEDS: Insulin LISPRO 300 UNITS/3 ML VIAL SQ SCH ×5 (01:10→23:33)
[2018-02-26 06:43] LABS: Hematocrit 24.7 % (35.3-44.9); Hemoglobin 8.2 g/dL (11.5-15.4)
[2018-02-26] MEDS: traMADol 50 MG TABLET PO PRN ×2 (06:50→16:43)
[2018-02-26] MEDS: Pantoprazole 40 MG VIAL IVP SCH ×2 (06:50→18:20)
[2018-02-26 07:12] LABS: Immature Granulocytes % 1.4 % (0-4); Lymphocytes # 0.3 K/mcL (0.6-4.6); Lymphocytes % 3.5 %; Mean Corpuscular HGB Conc 34.5 g/dL (31.6-35.5); Mean Corpuscular Hemoglobin 28.3 pg (28.0-33.3); Mean Corpuscular Volume 82.1 fL (83.0-100.0); Mean Platelet Volume 11.6 fL (9.4-12.4); Monocytes # 0.3 K/mcL (0.0-1.3); Monocytes % 4.7 %; Neutrophils # 6.4 K/mcL (1.6-8.9); Red Blood Count 3.07 M/mcL (3.82-4.97); Red Cell Distribution Width 16.5 % (11.5-14.5); Segmented Neutrophils % 90.4 %
[2018-02-26 07:14] LABS: Platelet Count 90 K/mcL (140-400)
[2018-02-26 07:37] LABS: Adenovirus F 40/41 PCR Not detected (Not detect); Astrovirus PCR Not detected (Not detect); C.difficile Toxin A/B by PCR Not detected (Not detect); Campylobacter by PCR Not detected (Not detect); Cryptosporidium by PCR Not detected (Not detect); Cyclospora cayetanensis PCR Not detected (Not detect); E. coli O157 by PCR Not detected (Not detect); Entamoeba histolytica PCR Not detected (Not detect); Enteroaggregative E.coli(EAEC) Not detected (Not detect); Enteropathogenic E.coli(EPEC) Not detected (Not detect); Enterotoxigenic E.coli (ETEC) Not detected (Not detect); Giardia lamblia PCR Not detected (Not detect); Norovirus GI/GII PCR Not detected (Not detect); Plesiomonas shigelloides PCR Not detected (Not detect); Rotavirus A PCR Not detected (Not detect); Salmonella PCR Not detected (Not detect); Sapovirus PCR Not detected (Not detect); Shig/EnteroinvasiveE coli EIEC Not detected (Not detect); Shigalike tox-prod E coli STEC Not detected (Not detect); Vibrio PCR Not detected (Not detect); Vibrio cholerae PCR Not detected (Not detect); Yersinia enterocolitica PCR Not detected (Not detect)
[2018-02-26] MEDS: Norepinephrine 4 MG in D5% in Water 250 ML IVC SCH ×2 (07:46→10:24)
--- NOTE | 2018-02-26 07:50 | Pulmonology Progress Note ---
Date of Encounter: 02/26/18 Time of Encounter: 07:57 Assessment and Plan (1) Severe sepsis Current Visit: Yes Status: Acute This is improving with treatment of the volume resuscitation and antimicrobial therapy. Stress dose hydrocortisone for chronic prednisone use this can be tapered over the next 48 hours I do not think she will benefit from further aggressive volume resuscitation affect this would likely be deleterious Lactate has remained within normal limits although she did have evidence of several organ systems dysfunctioning (2) Bacteremia due to Escherichia coli Current Visit: Yes Status: Acute She is on appropriate antimicrobials with planned to de-escalate based upon culture and sensitivities which should be back today Duration of therapy depends on clinical course. Likely 10-14 days (3) Coagulopathy Current Visit: Yes Status: Acute I suspect this was related to warfarin toxicity in the context of kidney failure and sepsis along with decreased by mouth intake INR today is normalized Fibrinogen did not it was within normal limits elevated which would be suspected in somebody with acute infectious process no clear evidence of DIC Peripheral smear pending but I doubt a consumptive coagulopathy at this point Hematology has been consulted pending official documentation although per hospitalist report regular may he spoke with him on the phone yesterday (4) Acute renal failure superimposed on stage 4 chronic kidney disease Current Visit: Yes Status: Acute This is improving urine output remains acceptable continue to renal dose all medications and avoid nephrotoxins continue to monitor urine output and electrolytes daily Qualifiers: Acute renal failure type: unspecified Qualified Code(s): N17.9 - Acute kidney failure, unspecified; N18.4 - Chronic kidney disease, stage 4 (severe) (5) Colitis presumed infectious Current Visit: Yes Status: Acute Evidence of colitis on the CT scan with some abdominal pain she had one episode of diarrhea yesterday we will follow up on cultures she was being treated very empirically for possibility of C. difficile infection although I think this is likely less likely and likely can stop contact precautions today (6) Thrombocytopenia Current Visit: Yes Status: Chronic Platelet count is 90 which is approximately stable over the last 2 days and think this is a manifestation of her sepsis peripheral smear is pending (7) DVT (deep venous thrombosis) Current Visit: No Status: Acute History of DVT with recent imaging suggestive of a chronic DVT given the H&H has been stable no overt evidence of bleeding would recommend restarting therapeutic dosing of heparin Qualifiers: DVT location: lower extremity Affected thrombotic vein of extremity: unspecified lower extremity proximal vein Chronicity: acute Laterality: right Qualified Code(s): I82.4Y1 - Acute embolism and thrombosis of unspecified deep veins of right proximal lower extremity (8) Anemia Current Visit: No Status: Chronic She has slight drop in H&H yesterday which has been stable since after transfusion of 1 unit PRBCs No overt evidence of bleeding Continue GI prophylaxis Qualifiers: Anemia type: iron deficiency Iron deficiency anemia type: chronic blood loss Qualified Code(s): D50.0 - Iron deficiency anemia secondary to blood loss (chronic) (9) Sarcoidosis Current Visit: No Status: Chronic 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 Blood pressure has normalized in last 24 hours after treatment with antibiotics and addition of stress dose hydrocortisone. Coagulopathy has been reversed. There is no evidence of bleeding H&H is stable. She states that she is feeling a bit better today still having some abdominal pain when she coughs. She has remained afebrile over last 24 hours Objective PUL Vital signs: Last Vital Signs Temp 96.6 F L 02/26/18 04:30 Pulse 64 02/26/18 06:00 Resp 16 02/26/18 05:00 BP 105/57 02/26/18 06:00 Pulse Ox 99 02/26/18 05:00 General appearance: no acute distress, alert Eyes: nonicteric ENT: oropharynx moist Neck: no lymphadenopathy, no JVD Effort: normal Auscultation: bilateral: diminished breath sounds (In lung bases there are faint crackles appreciated otherwise air entry throughout the) Cardiovascular: regular rate and rhythm Gastrointestinal: normoactive bowel sounds, soft, other (Mild tenderness to deep palpation over the right and left lower quadrants) Integumentary: normal Extremities: no cyanosis, pink and warm, pulses normal, edema (Trace lower extremity edema) Musculoskeletal: no deformities normal mental status, non-focal exam, pupils equal and round mood appropriate Results - Laboratory Findings CBC and BMP: 02/26/18 06:30 02/26/18 00:30 PT/INR, D-dimer PT 13.8 Seconds (9.4-12.1) H 02/26/18 00:30 D-Dimer 3605 ng/mLFEU (0-500) H 02/25/18 16:12 Abnormal lab findings: Abnormal lab results RBC 3.07 M/mcL (3.82-4.97) L 02/26/18 06:30 Hgb 8.2 g/dL (11.5-15.4) L 02/26/18 06:30 Hct 24.7 % (35.3-44.9) L 02/26/18 06:30 MCV 82.1 fL (83.0-100.0) L 02/26/18 06:30 RDW 16.5 % (11.5-14.5) H 02/26/18 06:30 Plt Count 90 K/mcL (140-400) L 02/26/18 06:30 Band Neutrophils % 6.0 % (0-4) H 02/25/18 08:46 Lymphocytes # 0.3 K/mcL (0.6-4.6) L 02/26/18 06:30 Toxic Granulation Present (Not Present) A 02/25/18 08:46 Platelet Estimate Slight Decrease (Normal) L 02/25/18 08:46 Immature Plt Fraction 7.0 % (1.1-6.1) H 02/25/18 19:20 Anisocytosis 1+ (Not Present) A 02/25/18 02:41 [place] Cells 1+ (Not Present) A 02/25/18 19:20 PT 13.8 Seconds (9.4-12.1) H 02/26/18 00:30 APTT 24.0 Seconds (26.0-36.0) L 02/26/18 00:30 Fibrinogen 691 mg/dL (169-393) H 02/26/18 00:30 D-Dimer 3605 ng/mLFEU (0-500) H 02/25/18 16:12 Chloride 109 mEq/L (98-107) H 02/26/18 00:30 Carbon Dioxide 15 mEq/L (23-29) L 02/26/18 00:30 BUN 50 mg/dL (8-23) H 02/26/18 00:30 Creatinine 3.31 mg/dL (0.60-1.20) H 02/26/18 00:30 Est GFR ( Amer) 17 (> 60) L 02/26/18 00:30 Est GFR (Non-Af Amer) 14 (> 60) L 02/26/18 00:30 POC Glucose 102 mg/dL (70-99) H 02/25/18 23:58 Calcium 7.7 mg/dL (8.6-10.3) L 02/26/18 00:30 Phosphorus 5.4 mg/dL (2.7-4.5) H 02/26/18 00:30 Direct Bilirubin 0.3 mg/dL (0.0-0.2) H 02/25/18 08:46 AST 10 Units/L (13-39) L 02/26/18 00:30 Serum Total Protein 5.1 g/dL (6.4-8.9) L 02/26/18 00:30 Albumin 2.8 g/dL (3.5-5.7) L 02/26/18 00:30 Globulin 2.3 g/dL (2.4-3.5) L 02/26/18 00:30 Lipase 6 Units/L (11-82) L 02/24/18 15:06 Urine Clarity Cloudy (Clear) A 02/25/18 10:45 Urine Protein 30 mg/dL (Neg-Trace) H 02/25/18 10:45 Urine Blood Small (Negative) H 02/25/18 10:45 Ur Leukocyte Esterase Moderate (Negative) H 02/25/18 10:45 Urine Microscopic RBC 3-5 per hpf (0-3) H 02/25/18 10:45 Urine Microscopic WBC 30-50 per hpf (0-3) H 02/25/18 10:45 Protein/Creatinin Ratio 2.33 mg/mg (0.00-0.20) H 02/24/18 20:30 Urine Total Protein 161 mg/dL (1-14) H 02/24/18 20:30 Enterobacteriac sp PCR DETECTED (Not Detect) A 02/24/18 16:28 E. coli (PCR) DETECTED (Not Detect) A 02/24/18 16:28 - Microbiology Findings Microbiology Findings: Microbiology, Last 48 Hours 02/25/18 08:50 Blood Culture - Preliminary Peripheral Venipuncture Culture is incubating and being continuously monitored for growth. Final report to follow. 02/25/18 08:53 Blood Culture - Preliminary Peripheral Venipuncture Culture is incubating and being continuously monitored for growth. Final report to follow. - Clinical Findings Intake & Output: Intake & Output 02/25/18 02/25/18 02/26/18 15:59 23:59 07:59 Intake Total 771.5 / 771.5 684 / 684 Output Total 475 / 475 400 / 400 325 / 325 Balance 296.5 / 296.5 284 / 284 -325 / -325 Weight 84.4 kg - VTE Documentation of Mechanical Device: Intermittent pneumatic compression device Consult Discharge Plan - Plan Referrals: Conchita Lovett MD [Primary Care Provider] -
[2018-02-26] MEDS: Piperacillin/Tazobactam 3.375 GM in 0.9 % Sodium Chloride Mini Bag 100 ML IVPB SCH ×2 (09:00→21:22)
[2018-02-26] MEDS: Hydrocortisone Sodium Succ 100 MG/2 ML VIAL IVP SCH ×3 (09:03→23:32)
[2018-02-26] MEDS: Vancomycin Oral Soln 125 MG/2.5 ML UDC PO SCH (09:03)
--- NOTE | 2018-02-26 09:46 | Oncology Inp Consult Note ---
<CecilAnant traore - Last Filed: 02/26/18 18:21> Date of Encounter: 02/26/18 Time of Encounter: 09:43 Assessment and Plan (1) Coagulopathy Status: Acute Assessment and plan: Likely related to warfarin toxicity in the setting of acute illness. No evidence of active bleeding. Patient's warfarin has reversed and INR is 1.2 today. No evidence of active bleeding. Fibrinogen is high, patient does not appear to be in DIC. (2) DVT (deep venous thrombosis) Status: Chronic Assessment and plan: Patient has chronic right popliteal vein DVT. This has been persistent since 2016. Appeared to be unprovoked at that time. No evidence of worsening disease. Patient been treated with Coumadin since 2016. Patient was initially tried on Xarelto however she reported tunnel vision that she feels related to her Xarelto and also questionable bleeding while on Xarelto so patient refuses to takes Xarelto. Given stable hemoglobin with no evidence of active bleeding. Would recommend restarting heparin drip and consider bridging back to Coumadin , however given the patient's persistent nausea and diarrhea if there is a plan GI intervention this hospitalization would hold Coumadin until GI evaluates the patient. Once cleared of any procedures would recommend restarting Coumadin with goal INR of 2-3 and continue to follow-up as an outpatient. Qualifiers: DVT location: lower extremity Affected thrombotic vein of extremity: popliteal Chronicity: unspecified Laterality: right Qualified Code(s): I82.431 - Acute embolism and thrombosis of right popliteal vein - Data of Consult Patient: known to practice within the last 3 years Consult date: 02/25/18 Requesting Physician: Ryan Kincaid DO Primary Care Provider: Conchita Lovett MD - Consult Narrative Reason for consult: Coagulopathy History of present illness: Ms. Mercedes is a 72 year old female with history of sarcoidosis, chronic lower extremity DVT who presents with nausea and vomiting. Patient reports that she had several episodes of vomiting at home prior to arrival. She did not feel good for several days prior to presenting to the emergency department. She denies any evidence of bleeding including hematemesis, melena, hematochezia, hematuria. At the time I examined the patient reports that she feels better. She reports her diarrhea is resolved. She does report pain in the right lower extremity that is chronic in nature for her. She denies shortness of breath, chest pain, hemoptysis. Past Med Surg Social Fam HX - Past Medical History Medical history: DVT, diabetes, hypertension, renal disease, other Additional medical history: sclerosis Psychiatric history: anxiety, depression - Past Surgical History Surgical History: knee replacement Additional surgical history: Steroid injection to knee, right knee surgery-, left knee surgery-2009,left total shoulder replacement reverse biceps tenodesis-04/03/16 - Social History Smoking Status: Never smoker Smokeless Tobacco Status: No Alcohol use: none Drug use: none - Family History Father Living Status: Hx Family Cardiac Disorders: Yes (Enlarged heart) Hx Family Respiratory Disorders: No Hx Family Cancer: Yes Hx Family GI Disorders: No Hx Family Endocrine Disorder: Yes (Diabetes) Hx Family Neuromuscular Disorders: No Hx Family Neurologic Disorders: No Hx Family HEENT Disorders: No Hx Family Autoimmune Disorders: No Mother Living Status: Hx Family Cardiac Disorders: Yes (CT) Hx Family Cancer: Yes (Breast cancer) Medications and Allergies Atorvastatin [Lipitor] 40 mg PO HS #0 02/23/15 [History] Furosemide [Lasix] 20 mg PO DAILY #0 02/23/15 [History] Losartan Potassium [Cozaar] 100 mg PO DAILY #0 02/23/15 [History] Insulin ASPART [Novolog] 10 - 15 unit SQ TIDWM 01/15/16 [History] Warfarin [Coumadin] 3 mg PO HS 04/03/16 [History] EPINEPHrine [Epipen] 0.3 mg IM ONCE PRN #1 kit 05/03/17 [Rx] Insulin Glargine [Lantus] 36 unit SQ QAM 09/12/17 [History] Adalimumab [Humira] 40 mg SQ MANRIQUEZ 10/03/17 [History] Gabapentin [Neurontin] 100 mg PO HS 10/03/17 [History] Metoprolol XL (24 HR) Succ [Toprol XL] 50 mg PO DAILY 10/03/17 [History] Pantoprazole Sodium [Protonix] 40 mg PO DAILY 10/03/17 [History] Insulin Glargine [Lantus] 14 unit SQ HS 02/24/18 [History] Pramipexole Di-HCl [Pramipexole Dihydrochloride] 0.125 mg PO HS 02/24/18 [ History] Tramadol HCl [Ultram] 50 - 100 mg PO BID PRN 02/24/18 [History] predniSONE [PredniSONE] 10 mg PO BIDWM 02/24/18 [History] 3 Allergy/AdvReac Type Severity Reaction Status Date / Time niacin Allergy Mild Rash Verified 02/23/18 20:09 [From Niaspan Extended-Release] sertraline Allergy Mild Dizziness Verified 02/23/18 20:09 aspirin [ASA] Allergy See Verified 02/23/18 20:09 Comments infliximab [From Remicade] Allergy Rash Verified 02/23/18 20:09 NSAIDS (Non-Steroidal Allergy See Verified 02/23/18 20:09 Anti-Inflamma Comments Constitutional: Absent: chills, fever(s) Nose, mouth and throat: Absent: sore throat Cardiovascular: Absent: chest pain, dyspnea, irregular heart rhythm Respiratory: Absent: cough, dyspnea, hemoptysis Gastrointestinal: Present: diarrhea, nausea, vomiting. Absent: change in bowel habits, change in stool character, hematemesis, melena Genitourinary: Absent: hematuria Musculoskeletal: Present: arthralgias, myalgias Integumentary: Absent: bleeding lesions Neurological: Absent: dizziness Hematologic/Lymphatic: Present: easy bruising. Absent: easy bleeding Oncology - Exam - Constitutional Vitals: Temp Pulse Resp BP Pulse Ox 96.5 F L 64 16 105/57 99 02/26/18 07:00 02/26/18 06:00 02/26/18 05:00 02/26/18 06:00 02/26/18 05:00 General appearance: cooperative, no acute distress - Head Head exam: Present: atraumatic, normal inspection, normocephalic - Eye Eye exam: Present: EOMI - ENT ENT exam: Present: mucous membranes moist - Respiratory Respiratory exam: Present: CTAB. Absent: rales, rhonchi - Cardiovascular Cardiovascular exam: Present: RRR, systolic murmur (3/6) - GI/Abdominal GI/Abdominal exam: Present: normal bowel sounds, soft. Absent: distended, tenderness - Extremities Exam Extremities exam: Present: normal inspection, tenderness (R knee). Absent: calf tenderness, joint swelling, pedal edema - Neurological Exam Neurological exam: Present: alert, oriented X3 - Skin Skin exam: Present: dry, intact, warm Oncology - Results Labs: 3 02/26/18 02/26/18 02/26/18 06:30 04:30 00:30 WBC 7.1 RBC 3.07 L Hgb 8.2 L 8.3 L Hct 24.7 L 24.4 L MCV 82.1 L MCH 28.3 MCHC 34.5 RDW 16.5 H Plt Count 90 L MPV 11.6 Immature Gran % 1.4 Seg Neutrophils % 90.4 Band Neutrophils % Lymphocytes % 3.5 Monocytes % 4.7 Eosinophils % 0.0 Basophils % 0.0 Neutrophils # 6.4 Lymphocytes # 0.3 L Monocytes # 0.3 Eosinophils # 0.0 Basophils # 0.0 Toxic Granulation Platelet Estimate Immature Plt Fraction Anisocytosis [place] Cells Smear Path Review PT INR APTT Fibrinogen D-Dimer Sodium Potassium Chloride Carbon Dioxide BUN Creatinine Est GFR ( Amer) Est GFR (Non-Af Amer) BUN/Creatinine Ratio Glucose POC Glucose Calculated Osmolality Lactic Acid Uric Acid Calcium Phosphorus Magnesium Total Bilirubin Direct Bilirubin Indirect Bilirubin AST ALT Alkaline Phosphatase Creatine Kinase Troponin I Serum Total Protein Albumin Globulin Albumin/Globulin Ratio Urine Color Urine Clarity Urine pH Ur Specific [place] Urine Protein Urine Glucose (UA) Urine Ketones Urine Blood Urine Nitrite Urine Bilirubin Urine Urobilinogen Ur Leukocyte Esterase Urine Microscopic RBC Urine Microscopic WBC Ur Squamous Epith Cells Amorphous Sediment Urine Bacteria Urine Creatinine Protein/Creatinin Ratio Urine Sodium Urine Total Protein Stl C. cayetanensis PCR Not detected Stool Rotavirus A PCR Not detected Stl Adenov F 40/41 PCR Not detected Stool Astrovirus (PCR) Not detected Stool Campylobacter PCR Not detected Stl C. diff Tox A/B PCR Not detected Stool Cryptosporidium PCR Not detected Stl Sh Tox Pr E STEC PCR Not detected Stool E coli O157 PCR Not detected Stl Enterotoxigenic E PCR Not detected Stool EPEC (PCR) Not detected Stool EAEC (PCR) Not detected Stl E. histolytica PCR Not detected Stool Giardia Lamblia PCR Not detected Stool Salmonella PCR Not detected Stool Sapovirus (PCR) Not detected Stl P. shigelloides PCR Not detected Stl Shigella/EIEC PCR Not detected St Y.enterocolitica PCR Not detected Stool Vibrio (PCR) Not detected Stl Vibrio cholerae PCR Not detected Stl Norovirus GI/GII PCR Not detected Stl GI Panel (PCR) Com See below Specimen Rejected Blood Type Antibody Screen Crossmatch 3 02/26/18 02/26/18 02/25/18 00:30 00:30 23:58 WBC RBC Hgb Hct MCV MCH MCHC RDW Plt Count MPV Immature Gran % Seg Neutrophils % Band Neutrophils % Lymphocytes % Monocytes % Eosinophils % Basophils % Neutrophils # Lymphocytes # Monocytes # Eosinophils # Basophils # Toxic Granulation Platelet Estimate Immature Plt Fraction Anisocytosis [place] Cells Smear Path Review PT 13.8 H INR 1.2 APTT 24.0 L Fibrinogen 691 H D-Dimer Sodium 136 Potassium 3.5 Chloride 109 H Carbon Dioxide 15 L BUN 50 H Creatinine 3.31 H Est GFR ( Amer) 17 L Est GFR (Non-Af Amer) 14 L BUN/Creatinine Ratio 15 Glucose 101 POC Glucose 102 H Calculated Osmolality 295 Lactic Acid Uric Acid Calcium 7.7 L Phosphorus 5.4 H Magnesium 2.4 Total Bilirubin 0.5 Direct Bilirubin Indirect Bilirubin AST 10 L ALT 9 Alkaline Phosphatase 66 Creatine Kinase Troponin I Serum Total Protein 5.1 L Albumin 2.8 L Globulin 2.3 L Albumin/Globulin Ratio 1.2 Urine Color Urine Clarity Urine pH Ur Specific [place] Urine Protein Urine Glucose (UA) Urine Ketones Urine Blood Urine Nitrite Urine Bilirubin Urine Urobilinogen Ur Leukocyte Esterase Urine Microscopic RBC Urine Microscopic WBC Ur Squamous Epith Cells Amorphous Sediment Urine Bacteria Urine Creatinine Protein/Creatinin Ratio Urine Sodium Urine Total Protein Stl C. cayetanensis PCR Stool Rotavirus A PCR Stl Adenov F 40/41 PCR Stool Astrovirus (PCR) Stool Campylobacter PCR Stl C. diff Tox A/B PCR Stool Cryptosporidium PCR Stl Sh Tox Pr E STEC PCR Stool E coli O157 PCR Stl Enterotoxigenic E PCR Stool EPEC (PCR) Stool EAEC (PCR) Stl E. histolytica PCR Stool Giardia Lamblia PCR Stool Salmonella PCR Stool Sapovirus (PCR) Stl P. shigelloides PCR Stl Shigella/EIEC PCR St Y.enterocolitica PCR Stool Vibrio (PCR) Stl Vibrio cholerae PCR Stl Norovirus GI/GII PCR Stl GI Panel (PCR) Com Specimen Rejected Blood Type Antibody Screen Crossmatch 3 02/25/18 02/25/18 02/25/18 23:00 23:00 19:20 WBC RBC Hgb Hct MCV MCH MCHC RDW Plt Count MPV Immature Gran % Seg Neutrophils % Band Neutrophils % Lymphocytes % Monocytes % Eosinophils % Basophils % Neutrophils # Lymphocytes # Monocytes # Eosinophils # Basophils # Toxic Granulation Platelet Estimate Immature Plt Fraction Anisocytosis [place] Cells Smear Path Review PT 17.9 H 20.0 H INR 1.6 1.8 APTT Fibrinogen D-Dimer Sodium 135 L Potassium 3.5 Chloride 108 H Carbon Dioxide 15 L BUN 49 H Creatinine 3.28 H Est GFR ( Amer) 17 L Est GFR (Non-Af Amer) 14 L BUN/Creatinine Ratio 15 Glucose 103 POC Glucose Calculated Osmolality 293 Lactic Acid Uric Acid Calcium 7.6 L Phosphorus 5.3 H Magnesium Total Bilirubin Direct Bilirubin Indirect Bilirubin AST ALT Alkaline Phosphatase Creatine Kinase Troponin I Serum Total Protein Albumin 2.8 L Globulin Albumin/Globulin Ratio Urine Color Urine Clarity Urine pH Ur Specific [place] Urine Protein Urine Glucose (UA) Urine Ketones Urine Blood Urine Nitrite Urine Bilirubin Urine Urobilinogen Ur Leukocyte Esterase Urine Microscopic RBC Urine Microscopic WBC Ur Squamous Epith Cells Amorphous Sediment Urine Bacteria Urine Creatinine Protein/Creatinin Ratio Urine Sodium Urine Total Protein Stl C. cayetanensis PCR Stool Rotavirus A PCR Stl Adenov F 40/41 PCR Stool Astrovirus (PCR) Stool Campylobacter PCR Stl C. diff Tox A/B PCR Stool Cryptosporidium PCR Stl Sh Tox Pr E STEC PCR Stool E coli O157 PCR Stl Enterotoxigenic E PCR Stool EPEC (PCR) Stool EAEC (PCR) Stl E. histolytica PCR Stool Giardia Lamblia PCR Stool Salmonella PCR Stool Sapovirus (PCR) Stl P. shigelloides PCR Stl Shigella/EIEC PCR St Y.enterocolitica PCR Stool Vibrio (PCR) Stl Vibrio cholerae PCR Stl Norovirus GI/GII PCR Stl GI Panel (PCR) Com Specimen Rejected Blood Type Antibody Screen Crossmatch 3 02/25/18 02/25/18 02/25/18 19:20 19:20 18:01 WBC 6.0 D RBC 2.89 L Hgb 8.1 L 8.1 L Hct 23.6 L 23.7 L MCV 82.0 L MCH 28.0 MCHC 34.2 RDW 16.2 H Plt Count 70 L MPV 11.1 Immature Gran % 1.7 Seg Neutrophils % 91.2 Band Neutrophils % Lymphocytes % 2.8 Monocytes % 4.3 Eosinophils % 0.0 Basophils % 0.0 Neutrophils # 5.5 Lymphocytes # 0.2 L Monocytes # 0.3 Eosinophils # 0.0 Basophils # 0.0 Toxic Granulation Platelet Estimate Immature Plt Fraction 7.0 H Anisocytosis Aracelis Cells 1+ A Smear Path Review PT INR APTT Fibrinogen D-Dimer Sodium Potassium Chloride Carbon Dioxide BUN Creatinine Est GFR ( Amer) Est GFR (Non-Af Amer) BUN/Creatinine Ratio Glucose POC Glucose 91 Calculated Osmolality Lactic Acid Uric Acid Calcium Phosphorus Magnesium Total Bilirubin Direct Bilirubin Indirect Bilirubin AST ALT Alkaline Phosphatase Creatine Kinase Troponin I Serum Total Protein Albumin Globulin Albumin/Globulin Ratio Urine Color Urine Clarity Urine pH Ur Specific [place] Urine Protein Urine Glucose (UA) Urine Ketones Urine Blood Urine Nitrite Urine Bilirubin Urine Urobilinogen Ur Leukocyte Esterase Urine Microscopic RBC Urine Microscopic WBC Ur Squamous Epith Cells Amorphous Sediment Urine Bacteria Urine Creatinine Protein/Creatinin Ratio Urine Sodium Urine Total Protein Stl C. cayetanensis PCR Stool Rotavirus A PCR Stl Adenov F 40/41 PCR Stool Astrovirus (PCR) Stool Campylobacter PCR Stl C. diff Tox A/B PCR Stool Cryptosporidium PCR Stl Sh Tox Pr E STEC PCR Stool E coli O157 PCR Stl Enterotoxigenic E PCR Stool EPEC (PCR) Stool EAEC (PCR) Stl E. histolytica PCR Stool Giardia Lamblia PCR Stool Salmonella PCR Stool Sapovirus (PCR) Stl P. shigelloides PCR Stl Shigella/EIEC PCR St Y.enterocolitica PCR Stool Vibrio (PCR) Stl Vibrio cholerae PCR Stl Norovirus GI/GII PCR Stl GI Panel (PCR) Com Specimen Rejected Blood Type Antibody Screen Crossmatch 3 02/25/18 02/25/18 02/25/18 17:38 17:35 16:12 WBC RBC Hgb Hct MCV MCH MCHC RDW Plt Count MPV Immature Gran % Seg Neutrophils % Band Neutrophils % Lymphocytes % Monocytes % Eosinophils % Basophils % Neutrophils # Lymphocytes # Monocytes # Eosinophils # Basophils # Toxic Granulation Platelet Estimate Immature Plt Fraction Anisocytosis [place] Cells Smear Path Review PT 21.7 H INR 1.9 APTT Fibrinogen 691 H D-Dimer 3605 H Sodium Potassium Chloride Carbon Dioxide BUN Creatinine Est GFR ( Amer) Est GFR (Non-Af Amer) BUN/Creatinine Ratio Glucose POC Glucose 64 L 67 L Calculated Osmolality Lactic Acid Uric Acid Calcium Phosphorus Magnesium Total Bilirubin Direct Bilirubin Indirect Bilirubin AST ALT Alkaline Phosphatase Creatine Kinase Troponin I Serum Total Protein Albumin Globulin Albumin/Globulin Ratio Urine Color Urine Clarity Urine pH Ur Specific [place] Urine Protein Urine Glucose (UA) Urine Ketones Urine Blood Urine Nitrite Urine Bilirubin Urine Urobilinogen Ur Leukocyte Esterase Urine Microscopic RBC Urine Microscopic WBC Ur Squamous Epith Cells Amorphous Sediment Urine Bacteria Urine Creatinine Protein/Creatinin Ratio Urine Sodium Urine Total Protein Stl C. cayetanensis PCR Stool Rotavirus A PCR Stl Adenov F PCR Stool Astrovirus (PCR) Stool Campylobacter PCR Stl C. diff Tox A/B PCR Stool Cryptosporidium PCR Stl Sh Tox Pr E STEC PCR Stool E coli O157 PCR Stl Enterotoxigenic E PCR Stool EPEC (PCR) Stool EAEC (PCR) Stl E. histolytica PCR Stool Giardia Lamblia PCR Stool Salmonella PCR Stool Sapovirus (PCR) Stl P. shigelloides PCR Stl Shigella/EIEC PCR St Y.enterocolitica PCR Stool Vibrio (PCR) Stl Vibrio cholerae PCR Stl Norovirus GI/GII PCR Stl GI Panel (PCR) Com Specimen Rejected Blood Type Antibody Screen Crossmatch 3 02/25/18 02/25/18 02/25/18 16:12 14:22 14:22 WBC RBC Hgb 8.4 L Hct 24.9 L MCV MCH MCHC RDW Plt Count MPV Immature Gran % Seg Neutrophils % Band Neutrophils % Lymphocytes % Monocytes % Eosinophils % Basophils % Neutrophils # Lymphocytes # Monocytes # Eosinophils # Basophils # Toxic Granulation Platelet Estimate Immature Plt Fraction Anisocytosis [place] Cells Smear Path Review PT INR APTT Fibrinogen D-Dimer Sodium 134 L Potassium 3.4 L Chloride 108 H Carbon Dioxide 15 L BUN 47 H Creatinine 3.28 H Est GFR ( Amer) 17 L Est GFR (Non-Af Amer) 14 L BUN/Creatinine Ratio 14 Glucose 74 POC Glucose Calculated Osmolality 289 Lactic Acid Uric Acid Calcium 7.5 L Phosphorus 4.4 Magnesium 1.9 Total Bilirubin Direct Bilirubin Indirect Bilirubin AST ALT Alkaline Phosphatase Creatine Kinase Troponin I Serum Total Protein Albumin 2.7 L Globulin Albumin/Globulin Ratio Urine Color Urine Clarity Urine pH Ur Specific [place] Urine Protein Urine Glucose (UA) Urine Ketones Urine Blood Urine Nitrite Urine Bilirubin Urine Urobilinogen Ur Leukocyte Esterase Urine Microscopic RBC Urine Microscopic WBC Ur Squamous Epith Cells Amorphous Sediment Urine Bacteria Urine Creatinine Protein/Creatinin Ratio Urine Sodium Urine Total Protein Stl C. cayetanensis PCR Stool Rotavirus A PCR Stl Adenov F PCR Stool Astrovirus (PCR) Stool Campylobacter PCR Stl C. diff Tox A/B PCR Stool Cryptosporidium PCR Stl Sh Tox Pr E STEC PCR Stool E coli O157 PCR Stl Enterotoxigenic E PCR Stool EPEC (PCR) Stool EAEC (PCR) Stl E. histolytica PCR Stool Giardia Lamblia PCR Stool Salmonella PCR Stool Sapovirus (PCR) Stl P. shigelloides PCR Stl Shigella/EIEC PCR St Y.enterocolitica PCR Stool Vibrio (PCR) Stl Vibrio cholerae PCR Stl Norovirus GI/GII PCR Stl GI Panel (PCR) Com Specimen Rejected Blood Type Antibody Screen Crossmatch 3 02/25/18 02/25/18 02/25/18 14:22 14:22 11:44 WBC RBC Hgb Hct MCV MCH MCHC RDW Plt Count MPV Immature Gran % Seg Neutrophils % Band Neutrophils % Lymphocytes % Monocytes % Eosinophils % Basophils % Neutrophils # Lymphocytes # Monocytes # Eosinophils # Basophils # Toxic Granulation Platelet Estimate Immature Plt Fraction Anisocytosis [place] Cells Smear Path Review PT 26.9 H D INR 2.4 D APTT Fibrinogen D-Dimer Sodium 135 L Potassium 3.5 Chloride 110 H Carbon Dioxide 15 L BUN 46 H Creatinine 3.31 H Est GFR ( Amer) 17 L Est GFR (Non-Af Amer) 14 L BUN/Creatinine Ratio 14 Glucose 69 L POC Glucose 77 Calculated Osmolality 290 Lactic Acid Uric Acid Calcium 7.5 L Phosphorus 4.0 Magnesium Total Bilirubin Direct Bilirubin Indirect Bilirubin AST ALT Alkaline Phosphatase Creatine Kinase Troponin I Serum Total Protein Albumin 2.5 L Globulin Albumin/Globulin Ratio Urine Color Urine Clarity Urine pH Ur Specific [place] Urine Protein Urine Glucose (UA) Urine Ketones Urine Blood Urine Nitrite Urine Bilirubin Urine Urobilinogen Ur Leukocyte Esterase Urine Microscopic RBC Urine Microscopic WBC Ur Squamous Epith Cells Amorphous Sediment Urine Bacteria Urine Creatinine Protein/Creatinin Ratio Urine Sodium Urine Total Protein Stl C. cayetanensis PCR Stool Rotavirus A PCR Stl Adenov F 40/41 PCR Stool Astrovirus (PCR) Stool Campylobacter PCR Stl C. diff Tox A/B PCR Stool Cryptosporidium PCR Stl Sh Tox Pr E STEC PCR Stool E coli O157 PCR Stl Enterotoxigenic E PCR Stool EPEC (PCR) Stool EAEC (PCR) Stl E. histolytica PCR Stool Giardia Lamblia PCR Stool Salmonella PCR Stool Sapovirus (PCR) Stl P. shigelloides PCR Stl Shigella/EIEC PCR St Y.enterocolitica PCR Stool Vibrio (PCR) Stl Vibrio cholerae PCR Stl Norovirus GI/GII PCR Stl GI Panel (PCR) Com Specimen Rejected Blood Type Antibody Screen Crossmatch 3 02/25/18 02/25/18 02/25/18 10:45 10:45 08:59 WBC RBC Hgb Hct MCV MCH MCHC RDW Plt Count MPV Immature Gran % Seg Neutrophils % Band Neutrophils % Lymphocytes % Monocytes % Eosinophils % Basophils % Neutrophils # Lymphocytes # Monocytes # Eosinophils # Basophils # Toxic Granulation Platelet Estimate Immature Plt Fraction Anisocytosis [place] Cells Smear Path Review PT INR APTT Fibrinogen D-Dimer Sodium Potassium Chloride Carbon Dioxide BUN Creatinine Est GFR ( Amer) Est GFR (Non-Af Amer) BUN/Creatinine Ratio Glucose POC Glucose 81 Calculated Osmolality Lactic Acid Uric Acid Calcium Phosphorus Magnesium Total Bilirubin Direct Bilirubin Indirect Bilirubin AST ALT Alkaline Phosphatase Creatine Kinase Troponin I Serum Total Protein Albumin Globulin Albumin/Globulin Ratio Urine Color Yellow Urine Clarity Cloudy A Urine pH 5.5 Ur Specific [place] 1.014 Urine Protein 30 H Urine Glucose (UA) Normal Urine Ketones Negative Urine Blood Small H Urine Nitrite Negative Urine Bilirubin Negative Urine Urobilinogen Normal Ur Leukocyte Esterase Moderate H Urine Microscopic RBC 3-5 H Urine Microscopic WBC 30-50 H Ur Squamous Epith Cells Few Amorphous Sediment Few Urine Bacteria Few Urine Creatinine 48 Protein/Creatinin Ratio Urine Sodium 22.9 Urine Total Protein Stl C. cayetanensis PCR Stool Rotavirus A PCR Stl Adenov F 40/41 PCR Stool Astrovirus (PCR) Stool Campylobacter PCR Stl C. diff Tox A/B PCR Stool Cryptosporidium PCR Stl Sh Tox Pr E STEC PCR Stool E coli O157 PCR Stl Enterotoxigenic E PCR Stool EPEC (PCR) Stool EAEC (PCR) Stl E. histolytica PCR Stool Giardia Lamblia PCR Stool Salmonella PCR Stool Sapovirus (PCR) Stl P. shigelloides PCR Stl Shigella/EIEC PCR St Y.enterocolitica PCR Stool Vibrio (PCR) Stl Vibrio cholerae PCR Stl Norovirus GI/GII PCR Stl GI Panel (PCR) Com Specimen Rejected Blood Type Antibody Screen Crossmatch 3 02/25/18 02/25/18 02/25/18 08:46 08:46 08:46 WBC 15.3 H RBC 3.35 L Hgb 9.1 L Hct 27.7 L MCV 82.7 L MCH 27.2 L MCHC 32.9 RDW 16.7 H Plt Count 102 L MPV 11.0 Immature Gran % Test Not Performed Seg Neutrophils % 88.0 Band Neutrophils % 6.0 H Lymphocytes % 2.0 Monocytes % 4.0 Eosinophils % Test Not Performed Basophils % Test Not Performed Neutrophils # 14.4 H Lymphocytes # 0.3 L Monocytes # 0.6 Eosinophils # Test Not Performed Basophils # Test Not Performed Toxic Granulation Present A Platelet Estimate Slight Decrease L Immature Plt Fraction Anisocytosis [place] Cells Smear Path Review See Below PT INR APTT Fibrinogen D-Dimer Sodium 132 L Potassium 3.7 Chloride 107 Carbon Dioxide 17 L BUN 44 H Creatinine 3.31 H Est GFR ( Amer) 17 L Est GFR (Non-Af Amer) 14 L BUN/Creatinine Ratio 13 Glucose 95 POC Glucose Calculated Osmolality 285 Lactic Acid 1.3 Uric Acid 7.6 Calcium 7.5 L Phosphorus Magnesium Total Bilirubin 0.6 Direct Bilirubin 0.3 H Indirect Bilirubin 0.3 AST 14 ALT 8 Alkaline Phosphatase 82 Creatine Kinase 139 Troponin I Serum Total Protein 5.3 L Albumin 2.8 L Globulin 2.5 Albumin/Globulin Ratio 1.1 Urine Color Urine Clarity Urine pH Ur Specific [place] Urine Protein Urine Glucose (UA) Urine Ketones Urine Blood Urine Nitrite Urine Bilirubin Urine Urobilinogen Ur Leukocyte Esterase Urine Microscopic RBC Urine Microscopic WBC Ur Squamous Epith Cells Amorphous Sediment Urine Bacteria Urine Creatinine Protein/Creatinin Ratio Urine Sodium Urine Total Protein Stl C. cayetanensis PCR Stool Rotavirus A PCR Stl Adenov F 40/41 PCR Stool Astrovirus (PCR) Stool Campylobacter PCR Stl C. diff Tox A/B PCR Stool Cryptosporidium PCR Stl Sh Tox Pr E STEC PCR Stool E coli O157 PCR Stl Enterotoxigenic E PCR Stool EPEC (PCR) Stool EAEC (PCR) Stl E. histolytica PCR Stool Giardia Lamblia PCR Stool Salmonella PCR Stool Sapovirus (PCR) Stl P. shigelloides PCR Stl Shigella/EIEC PCR St Y.enterocolitica PCR Stool Vibrio (PCR) Stl Vibrio cholerae PCR Stl Norovirus GI/GII PCR Stl GI Panel (PCR) Com Specimen Rejected Blood Type Antibody Screen Crossmatch 3 02/25/18 02/25/18 02/25/18 08:12 02:41 02:41 WBC RBC Hgb Hct MCV MCH MCHC RDW Plt Count MPV Immature Gran % Seg Neutrophils % Band Neutrophils % Lymphocytes % Monocytes % Eosinophils % Basophils % Neutrophils # Lymphocytes # Monocytes # Eosinophils # Basophils # Toxic Granulation Platelet Estimate Immature Plt Fraction Anisocytosis [place] Cells Smear Path Review PT 115.4 H* INR 10.2 H* APTT Fibrinogen D-Dimer Sodium Potassium Chloride Carbon Dioxide BUN Creatinine Est GFR ( Amer) Est GFR (Non-Af Amer) BUN/Creatinine Ratio Glucose POC Glucose 93 Calculated Osmolality Lactic Acid 0.8 Uric Acid Calcium Phosphorus Magnesium Total Bilirubin Direct Bilirubin Indirect Bilirubin AST ALT Alkaline Phosphatase Creatine Kinase Troponin I Serum Total Protein Albumin Globulin Albumin/Globulin Ratio Urine Color Urine Clarity Urine pH Ur Specific [place] Urine Protein Urine Glucose (UA) Urine Ketones Urine Blood Urine Nitrite Urine Bilirubin Urine Urobilinogen Ur Leukocyte Esterase Urine Microscopic RBC Urine Microscopic WBC Ur Squamous Epith Cells Amorphous Sediment Urine Bacteria Urine Creatinine Protein/Creatinin Ratio Urine Sodium Urine Total Protein Stl C. cayetanensis PCR Stool Rotavirus A PCR Stl Adenov F 40 PCR Stool Astrovirus (PCR) Stool Campylobacter PCR Stl C. diff Tox A/B PCR Stool Cryptosporidium PCR Stl Sh Tox Pr E STEC PCR Stool E coli O157 PCR Stl Enterotoxigenic E PCR Stool EPEC (PCR) Stool EAEC (PCR) Stl E. histolytica PCR Stool Giardia Lamblia PCR Stool Salmonella PCR Stool Sapovirus (PCR) Stl P. shigelloides PCR Stl Shigella/EIEC PCR St Y.enterocolitica PCR Stool Vibrio (PCR) Stl Vibrio cholerae PCR Stl Norovirus GI/GII PCR Stl GI Panel (PCR) Com Specimen Rejected Blood Type Antibody Screen Crossmatch 3 02/25/18 02/25/18 02/24/18 02:41 02:41 22:23 WBC 13.0 H RBC 2.75 L Hgb 7.7 L Hct 22.8 L MCV 82.9 L MCH 28.0 MCHC 33.8 RDW 16.2 H Plt Count 80 L MPV 11.0 Immature Gran % Seg Neutrophils % 78.0 Band Neutrophils % 6.0 H Lymphocytes % 8.0 Monocytes % 8.0 Eosinophils % Basophils % Neutrophils # 10.9 H Lymphocytes # 1.0 Monocytes # 1.0 Eosinophils # Basophils # Toxic Granulation Platelet Estimate Slight Decrease L Immature Plt Fraction 5.1 Anisocytosis 1+ A Aracelis Cells Smear Path Review PT INR APTT Fibrinogen D-Dimer Sodium 129 L Potassium 3.4 L Chloride 105 Carbon Dioxide 16 L BUN 45 H Creatinine 3.46 H Est GFR ( Amer) 16 L Est GFR (Non-Af Amer) 13 L BUN/Creatinine Ratio 13 Glucose 116 H POC Glucose Calculated Osmolality 281 Lactic Acid 1.1 Uric Acid Calcium 7.3 L Phosphorus 3.9 Magnesium 1.3 L Total Bilirubin Direct Bilirubin Indirect Bilirubin AST ALT Alkaline Phosphatase Creatine Kinase Troponin I 0.03 Serum Total Protein Albumin Globulin Albumin/Globulin Ratio Urine Color Urine Clarity Urine pH Ur Specific [place] Urine Protein Urine Glucose (UA) Urine Ketones Urine Blood Urine Nitrite Urine Bilirubin Urine Urobilinogen Ur Leukocyte Esterase Urine Microscopic RBC Urine Microscopic WBC Ur Squamous Epith Cells Amorphous Sediment Urine Bacteria Urine Creatinine Protein/Creatinin Ratio Urine Sodium Urine Total Protein Stl C. cayetanensis PCR Stool Rotavirus A PCR Stl Adenov F 40 PCR Stool Astrovirus (PCR) Stool Campylobacter PCR Stl C. diff Tox A/B PCR Stool Cryptosporidium PCR Stl Sh Tox Pr E STEC PCR Stool E coli O157 PCR Stl Enterotoxigenic E PCR Stool EPEC (PCR) Stool EAEC (PCR) Stl E. histolytica PCR Stool Giardia Lamblia PCR Stool Salmonella PCR Stool Sapovirus (PCR) Stl P. shigelloides PCR Stl Shigella/EIEC PCR St Y.enterocolitica PCR Stool Vibrio (PCR) Stl Vibrio cholerae PCR Stl Norovirus GI/GII PCR Stl GI Panel (PCR) Com Specimen Rejected Blood Type Antibody Screen Crossmatch 3 02/24/18 02/24/18 02/24/18 21:30 21:00 20:30 WBC RBC Hgb Hct MCV MCH MCHC RDW Plt Count MPV Immature Gran % Seg Neutrophils % Band Neutrophils % Lymphocytes % Monocytes % Eosinophils % Basophils % Neutrophils # Lymphocytes # Monocytes # Eosinophils # Basophils # Toxic Granulation Platelet Estimate Immature Plt Fraction Anisocytosis [place] Cells Smear Path Review PT INR APTT Fibrinogen D-Dimer Sodium Potassium Chloride Carbon Dioxide BUN Creatinine Est GFR ( Amer) Est GFR (Non-Af Amer) BUN/Creatinine Ratio Glucose POC Glucose 188 H Calculated Osmolality Lactic Acid Uric Acid Calcium Phosphorus Magnesium Total Bilirubin Direct Bilirubin Indirect Bilirubin AST ALT Alkaline Phosphatase Creatine Kinase Troponin I 0.03 Serum Total Protein Albumin Globulin Albumin/Globulin Ratio Urine Color Urine Clarity Urine pH Ur Specific [place] Urine Protein Urine Glucose (UA) Urine Ketones Urine Blood Urine Nitrite Urine Bilirubin Urine Urobilinogen Ur Leukocyte Esterase Urine Microscopic RBC Urine Microscopic WBC Ur Squamous Epith Cells Amorphous Sediment Urine Bacteria Urine Creatinine 69 Protein/Creatinin Ratio 2.33 H Urine Sodium 24.9 Urine Total Protein 161 H Stl C. cayetanensis PCR Stool Rotavirus A PCR Stl Adenov F PCR Stool Astrovirus (PCR) Stool Campylobacter PCR Stl C. diff Tox A/B PCR Stool Cryptosporidium PCR Stl Sh Tox Pr E STEC PCR Stool E coli O157 PCR Stl Enterotoxigenic E PCR Stool EPEC (PCR) Stool EAEC (PCR) Stl E. histolytica PCR Stool Giardia Lamblia PCR Stool Salmonella PCR Stool Sapovirus (PCR) Stl P. shigelloides PCR Stl Shigella/EIEC PCR St Y.enterocolitica PCR Stool Vibrio (PCR) Stl Vibrio cholerae PCR Stl Norovirus GI/GII PCR Stl GI Panel (PCR) Com Specimen Rejected Blood Type Antibody Screen Crossmatch 3 02/24/18 02/24/18 02/24/18 19:48 19:42 19:42 WBC 14.4 H RBC 3.20 L Hgb 9.0 L Hct 26.2 L MCV 81.9 L MCH 28.1 MCHC 34.4 RDW 16.1 H Plt Count 93 L MPV 10.4 Immature Gran % 2.9 Seg Neutrophils % 86.5 Band Neutrophils % 2.0 Lymphocytes % 3.6 Monocytes % 6.8 Eosinophils % 0.1 Basophils % 0.1 Neutrophils # 12.7 H Lymphocytes # 0.5 L Monocytes # 1.0 Eosinophils # 0.0 Basophils # 0.0 Toxic Granulation Platelet Estimate Decreased L Immature Plt Fraction 5.4 Anisocytosis 1+ A [place] Cells Smear Path Review PT INR APTT Fibrinogen D-Dimer Sodium Potassium Chloride Carbon Dioxide BUN Creatinine Est GFR ( Amer) Est GFR (Non-Af Amer) BUN/Creatinine Ratio Glucose POC Glucose Calculated Osmolality Lactic Acid 1.2 Uric Acid Calcium Phosphorus Magnesium Total Bilirubin Direct Bilirubin Indirect Bilirubin AST ALT Alkaline Phosphatase Creatine Kinase Troponin I Serum Total Protein Albumin Globulin Albumin/Globulin Ratio Urine Color Urine Clarity Urine pH Ur Specific [place] Urine Protein Urine Glucose (UA) Urine Ketones Urine Blood Urine Nitrite Urine Bilirubin Urine Urobilinogen Ur Leukocyte Esterase Urine Microscopic RBC Urine Microscopic WBC Ur Squamous Epith Cells Amorphous Sediment Urine Bacteria Urine Creatinine Protein/Creatinin Ratio Urine Sodium Urine Total Protein Stl C. cayetanensis PCR Stool Rotavirus A PCR Stl Adenov F PCR Stool Astrovirus (PCR) Stool Campylobacter PCR Stl C. diff Tox A/B PCR Stool Cryptosporidium PCR Stl Sh Tox Pr E STEC PCR Stool E coli O157 PCR Stl Enterotoxigenic E PCR Stool EPEC (PCR) Stool EAEC (PCR) Stl E. histolytica PCR Stool Giardia Lamblia PCR Stool Salmonella PCR Stool Sapovirus (PCR) Stl P. shigelloides PCR Stl Shigella/EIEC PCR St Y.enterocolitica PCR Stool Vibrio (PCR) Stl Vibrio cholerae PCR Stl Norovirus GI/GII PCR Stl GI Panel (PCR) Com Specimen Rejected Blood Type O POSITIVE Antibody Screen NEGATIVE Crossmatch See Detail 3 02/24/18 02/24/18 18:31 18:20 WBC RBC Hgb Hct MCV MCH MCHC RDW Plt Count MPV Immature Gran % Seg Neutrophils % Band Neutrophils % Lymphocytes % Monocytes % Eosinophils % Basophils % Neutrophils # Lymphocytes # Monocytes # Eosinophils # Basophils # Toxic Granulation Platelet Estimate Immature Plt Fraction Anisocytosis Aracelis Cells Smear Path Review PT 97.6 H* INR 8.6 H* APTT Fibrinogen D-Dimer Sodium Potassium Chloride Carbon Dioxide BUN Creatinine Est GFR ( Amer) Est GFR (Non-Af Amer) BUN/Creatinine Ratio Glucose POC Glucose Calculated Osmolality Lactic Acid Uric Acid Calcium Phosphorus Magnesium Total Bilirubin Direct Bilirubin Indirect Bilirubin AST ALT Alkaline Phosphatase Creatine Kinase Troponin I Serum Total Protein Albumin Globulin Albumin/Globulin Ratio Urine Color Urine Clarity Urine pH Ur Specific [place] Urine Protein Urine Glucose (UA) Urine Ketones Urine Blood Urine Nitrite Urine Bilirubin Urine Urobilinogen Ur Leukocyte Esterase Urine Microscopic RBC Urine Microscopic WBC Ur Squamous Epith Cells Amorphous Sediment Urine Bacteria Urine Creatinine Protein/Creatinin Ratio Urine Sodium Urine Total Protein Stl C. cayetanensis PCR Stool Rotavirus A PCR Stl Adenov F PCR Stool Astrovirus (PCR) Stool Campylobacter PCR Stl C. diff Tox A/B PCR Stool Cryptosporidium PCR Stl Sh Tox Pr E STEC PCR Stool E coli O157 PCR Stl Enterotoxigenic E PCR Stool EPEC (PCR) Stool EAEC (PCR) Stl E. histolytica PCR Stool Giardia Lamblia PCR Stool Salmonella PCR Stool Sapovirus (PCR) Stl P. shigelloides PCR Stl Shigella/EIEC PCR St Y.enterocolitica PCR Stool Vibrio (PCR) Stl Vibrio cholerae PCR Stl Norovirus GI/GII PCR Stl GI Panel (PCR) Com Specimen Rejected Contaminated Blood Type Antibody Screen Crossmatch Consult Discharge Plan - Plan Referrals: Conchita Lovett MD [Primary Care Provider] - <Fausto Burgos - Last Filed: 02/26/18 22:33> Date of Encounter: 02/26/18 - Data of Consult Requesting Physician: Ryan Kincaid DO Primary Care Provider: Conchita Lovett MD - Consult Narrative History of present illness: Ms. Mercedes is a 72 year old female Oncology - Exam - Constitutional Vitals: Temp Pulse Resp BP Pulse Ox 96.7 F L 60 16 130/65 95 02/26/18 20:06 02/26/18 20:00 02/26/18 20:00 02/26/18 20:00 02/26/18 20:00 Oncology - Results Labs: 3 02/26/18 02/26/18 02/26/18 17:05 12:43 06:30 WBC 12.1 H D 7.1 RBC 3.38 L 3.07 L Hgb 9.4 L 8.2 L Hct 28.2 L 24.7 L MCV 83.4 82.1 L MCH 27.8 L 28.3 MCHC 33.3 34.5 RDW 16.6 H 16.5 H Plt Count 99 L 90 L MPV 11.5 11.6 Immature Gran % 1.4 Seg Neutrophils % 90.4 Band Neutrophils % Lymphocytes % 3.5 Monocytes % 4.7 Eosinophils % 0.0 Basophils % 0.0 Neutrophils # 6.4 Lymphocytes # 0.3 L Monocytes # 0.3 Eosinophils # 0.0 Basophils # 0.0 Toxic Granulation Platelet Estimate Immature Plt Fraction 7.3 H Anisocytosis Aracelis Cells Smear Path Review PT INR APTT Fibrinogen D-Dimer Heparin Anti-Xa, Unfract 0.35 Sodium Potassium Chloride Carbon Dioxide BUN Creatinine Est GFR ( Amer) Est GFR (Non-Af Amer) BUN/Creatinine Ratio Glucose POC Glucose Calculated Osmolality Lactic Acid Uric Acid Calcium Phosphorus Magnesium Total Bilirubin Direct Bilirubin Indirect Bilirubin AST ALT Alkaline Phosphatase Creatine Kinase Troponin I Serum Total Protein Albumin Globulin Albumin/Globulin Ratio Urine Color Urine Clarity Urine pH Ur Specific [place] Urine Protein Urine Glucose (UA) Urine Ketones Urine Blood Urine Nitrite Urine Bilirubin Urine Urobilinogen Ur Leukocyte Esterase Urine Microscopic RBC Urine Microscopic WBC Ur Squamous Epith Cells Amorphous Sediment Urine Bacteria Urine Creatinine Protein/Creatinin Ratio Urine Sodium Urine Total Protein Stl C. cayetanensis PCR Stool Rotavirus A PCR Stl Adenov F PCR Stool Astrovirus (PCR) Stool Campylobacter PCR Stl C. diff Tox A/B PCR Stool Cryptosporidium PCR Stl Sh Tox Pr E STEC PCR Stool E coli O157 PCR Stl Enterotoxigenic E PCR Stool EPEC (PCR) Stool EAEC (PCR) Stl E. histolytica PCR Stool Giardia Lamblia PCR Stool Salmonella PCR Stool Sapovirus (PCR) Stl P. shigelloides PCR Stl Shigella/EIEC PCR St Y.enterocolitica PCR Stool Vibrio (PCR) Stl Vibrio cholerae PCR Stl Norovirus GI/GII PCR Stl GI Panel (PCR) Com Specimen Rejected Blood Type Antibody Screen PHAM, Poly Interpret Crossmatch Reaction Pathol Review 3 02/26/18 02/26/18 02/26/18 04:30 00:30 00:30 WBC RBC Hgb 8.3 L Hct 24.4 L MCV MCH MCHC RDW Plt Count MPV Immature Gran % Seg Neutrophils % Band Neutrophils % Lymphocytes % Monocytes % Eosinophils % Basophils % Neutrophils # Lymphocytes # Monocytes # Eosinophils # Basophils # Toxic Granulation Platelet Estimate Immature Plt Fraction Anisocytosis [place] Cells Smear Path Review PT INR APTT Fibrinogen D-Dimer Heparin Anti-Xa, Unfract Sodium 136 Potassium 3.5 Chloride 109 H Carbon Dioxide 15 L BUN 50 H Creatinine 3.31 H Est GFR ( Amer) 17 L Est GFR (Non-Af Amer) 14 L BUN/Creatinine Ratio 15 Glucose 101 POC Glucose Calculated Osmolality 295 Lactic Acid Uric Acid Calcium 7.7 L Phosphorus 5.4 H Magnesium 2.4 Total Bilirubin 0.5 Direct Bilirubin Indirect Bilirubin AST 10 L ALT 9 Alkaline Phosphatase 66 Creatine Kinase Troponin I Serum Total Protein 5.1 L Albumin 2.8 L Globulin 2.3 L Albumin/Globulin Ratio 1.2 Urine Color Urine Clarity Urine pH Ur Specific [place] Urine Protein Urine Glucose (UA) Urine Ketones Urine Blood Urine Nitrite Urine Bilirubin Urine Urobilinogen Ur Leukocyte Esterase Urine Microscopic RBC Urine Microscopic WBC Ur Squamous Epith Cells Amorphous Sediment Urine Bacteria Urine Creatinine Protein/Creatinin Ratio Urine Sodium Urine Total Protein Stl C. cayetanensis PCR Not detected Stool Rotavirus A PCR Not detected Stl Adenov F PCR Not detected Stool Astrovirus (PCR) Not detected Stool Campylobacter PCR Not detected Stl C. diff Tox A/B PCR Not detected Stool Cryptosporidium PCR Not detected Stl Sh Tox Pr E STEC PCR Not detected Stool E coli O157 PCR Not detected Stl Enterotoxigenic E PCR Not detected Stool EPEC (PCR) Not detected Stool EAEC (PCR) Not detected Stl E. histolytica PCR Not detected Stool Giardia Lamblia PCR Not detected Stool Salmonella PCR Not detected Stool Sapovirus (PCR) Not detected Stl P. shigelloides PCR Not detected Stl Shigella/EIEC PCR Not detected St Y.enterocolitica PCR Not detected Stool Vibrio (PCR) Not detected Stl Vibrio cholerae PCR Not detected Stl Norovirus GI/GII PCR Not detected Stl GI Panel (PCR) Com See below Specimen Rejected Blood Type Antibody Screen PHAM, Poly Interpret Crossmatch Reaction Pathol Review 3 02/26/18 02/25/18 02/25/18 00:30 23:58 23:00 WBC RBC Hgb Hct MCV MCH MCHC RDW Plt Count MPV Immature Gran % Seg Neutrophils % Band Neutrophils % Lymphocytes % Monocytes % Eosinophils % Basophils % Neutrophils # Lymphocytes # Monocytes # Eosinophils # Basophils # Toxic Granulation Platelet Estimate Immature Plt Fraction Anisocytosis Aracelis Cells Smear Path Review PT 13.8 H INR 1.2 APTT 24.0 L Fibrinogen 691 H D-Dimer Heparin Anti-Xa, Unfract Sodium 135 L Potassium 3.5 Chloride 108 H Carbon Dioxide 15 L BUN 49 H Creatinine 3.28 H Est GFR ( Amer) 17 L Est GFR (Non-Af Amer) 14 L BUN/Creatinine Ratio 15 Glucose 103 POC Glucose 102 H Calculated Osmolality 293 Lactic Acid Uric Acid Calcium 7.6 L Phosphorus 5.3 H Magnesium Total Bilirubin Direct Bilirubin Indirect Bilirubin AST ALT Alkaline Phosphatase Creatine Kinase Troponin I Serum Total Protein Albumin 2.8 L Globulin Albumin/Globulin Ratio Urine Color Urine Clarity Urine pH Ur Specific [place] Urine Protein Urine Glucose (UA) Urine Ketones Urine Blood Urine Nitrite Urine Bilirubin Urine Urobilinogen Ur Leukocyte Esterase Urine Microscopic RBC Urine Microscopic WBC Ur Squamous Epith Cells Amorphous Sediment Urine Bacteria Urine Creatinine Protein/Creatinin Ratio Urine Sodium Urine Total Protein Stl C. cayetanensis PCR Stool Rotavirus A PCR Stl Adenov F 40/41 PCR Stool Astrovirus (PCR) Stool Campylobacter PCR Stl C. diff Tox A/B PCR Stool Cryptosporidium PCR Stl Sh Tox Pr E STEC PCR Stool E coli O157 PCR Stl Enterotoxigenic E PCR Stool EPEC (PCR) Stool EAEC (PCR) Stl E. histolytica PCR Stool Giardia Lamblia PCR Stool Salmonella PCR Stool Sapovirus (PCR) Stl P. shigelloides PCR Stl Shigella/EIEC PCR St Y.enterocolitica PCR Stool Vibrio (PCR) Stl Vibrio cholerae PCR Stl Norovirus GI/GII PCR Stl GI Panel (PCR) Com Specimen Rejected Blood Type Antibody Screen PHAM, Poly Interpret Crossmatch Reaction Pathol Review 3 02/25/18 02/25/18 02/25/18 23:00 19:20 19:20 WBC RBC Hgb 8.1 L Hct 23.6 L MCV MCH MCHC RDW Plt Count MPV Immature Gran % Seg Neutrophils % Band Neutrophils % Lymphocytes % Monocytes % Eosinophils % Basophils % Neutrophils # Lymphocytes # Monocytes # Eosinophils # Basophils # Toxic Granulation Platelet Estimate Immature Plt Fraction Anisocytosis [place] Cells Smear Path Review PT 17.9 H 20.0 H INR 1.6 1.8 APTT Fibrinogen D-Dimer Heparin Anti-Xa, Unfract Sodium Potassium Chloride Carbon Dioxide BUN Creatinine Est GFR ( Amer) Est GFR (Non-Af Amer) BUN/Creatinine Ratio Glucose POC Glucose Calculated Osmolality Lactic Acid Uric Acid Calcium Phosphorus Magnesium Total Bilirubin Direct Bilirubin Indirect Bilirubin AST ALT Alkaline Phosphatase Creatine Kinase Troponin I Serum Total Protein Albumin Globulin Albumin/Globulin Ratio Urine Color Urine Clarity Urine pH Ur Specific [place] Urine Protein Urine Glucose (UA) Urine Ketones Urine Blood Urine Nitrite Urine Bilirubin Urine Urobilinogen Ur Leukocyte Esterase Urine Microscopic RBC Urine Microscopic WBC Ur Squamous Epith Cells Amorphous Sediment Urine Bacteria Urine Creatinine Protein/Creatinin Ratio Urine Sodium Urine Total Protein Stl C. cayetanensis PCR Stool Rotavirus A PCR Stl Adenov F 40/41 PCR Stool Astrovirus (PCR) Stool Campylobacter PCR Stl C. diff Tox A/B PCR Stool Cryptosporidium PCR Stl Sh Tox Pr E STEC PCR Stool E coli O157 PCR Stl Enterotoxigenic E PCR Stool EPEC (PCR) Stool EAEC (PCR) Stl E. histolytica PCR Stool Giardia Lamblia PCR Stool Salmonella PCR Stool Sapovirus (PCR) Stl P. shigelloides PCR Stl Shigella/EIEC PCR St Y.enterocolitica PCR Stool Vibrio (PCR) Stl Vibrio cholerae PCR Stl Norovirus GI/GII PCR Stl GI Panel (PCR) Com Specimen Rejected Blood Type Antibody Screen PHAM, Poly Interpret Crossmatch Reaction Pathol Review 3 02/25/18 02/25/18 02/25/18 19:20 18:01 17:38 WBC 6.0 D RBC 2.89 L Hgb 8.1 L Hct 23.7 L MCV 82.0 L MCH 28.0 MCHC 34.2 RDW 16.2 H Plt Count 70 L MPV 11.1 Immature Gran % 1.7 Seg Neutrophils % 91.2 Band Neutrophils % Lymphocytes % 2.8 Monocytes % 4.3 Eosinophils % 0.0 Basophils % 0.0 Neutrophils # 5.5 Lymphocytes # 0.2 L Monocytes # 0.3 Eosinophils # 0.0 Basophils # 0.0 Toxic Granulation Platelet Estimate Immature Plt Fraction 7.0 H Anisocytosis [place] Cells 1+ A Smear Path Review PT INR APTT Fibrinogen D-Dimer Heparin Anti-Xa, Unfract Sodium Potassium Chloride Carbon Dioxide BUN Creatinine Est GFR ( Amer) Est GFR (Non-Af Amer) BUN/Creatinine Ratio Glucose POC Glucose 91 64 L Calculated Osmolality Lactic Acid Uric Acid Calcium Phosphorus Magnesium Total Bilirubin Direct Bilirubin Indirect Bilirubin AST ALT Alkaline Phosphatase Creatine Kinase Troponin I Serum Total Protein Albumin Globulin Albumin/Globulin Ratio Urine Color Urine Clarity Urine pH Ur Specific [place] Urine Protein Urine Glucose (UA) Urine Ketones Urine Blood Urine Nitrite Urine Bilirubin Urine Urobilinogen Ur Leukocyte Esterase Urine Microscopic RBC Urine Microscopic WBC Ur Squamous Epith Cells Amorphous Sediment Urine Bacteria Urine Creatinine Protein/Creatinin Ratio Urine Sodium Urine Total Protein Stl C. cayetanensis PCR Stool Rotavirus A PCR Stl Adenov F 40/41 PCR Stool Astrovirus (PCR) Stool Campylobacter PCR Stl C. diff Tox A/B PCR Stool Cryptosporidium PCR Stl Sh Tox Pr E STEC PCR Stool E coli O157 PCR Stl Enterotoxigenic E PCR Stool EPEC (PCR) Stool EAEC (PCR) Stl E. histolytica PCR Stool Giardia Lamblia PCR Stool Salmonella PCR Stool Sapovirus (PCR) Stl P. shigelloides PCR Stl Shigella/EIEC PCR St Y.enterocolitica PCR Stool Vibrio (PCR) Stl Vibrio cholerae PCR Stl Norovirus GI/GII PCR Stl GI Panel (PCR) Com Specimen Rejected Blood Type Antibody Screen PHAM, Poly Interpret Crossmatch Reaction Pathol Review 3 02/25/18 02/25/18 02/25/18 17:35 16:12 16:12 WBC RBC Hgb Hct MCV MCH MCHC RDW Plt Count MPV Immature Gran % Seg Neutrophils % Band Neutrophils % Lymphocytes % Monocytes % Eosinophils % Basophils % Neutrophils # Lymphocytes # Monocytes # Eosinophils # Basophils # Toxic Granulation Platelet Estimate Immature Plt Fraction Anisocytosis [place] Cells Smear Path Review PT 21.7 H INR 1.9 APTT Fibrinogen 691 H D-Dimer 3605 H Heparin Anti-Xa, Unfract Sodium 134 L Potassium 3.4 L Chloride 108 H Carbon Dioxide 15 L BUN 47 H Creatinine 3.28 H Est GFR ( Amer) 17 L Est GFR (Non-Af Amer) 14 L BUN/Creatinine Ratio 14 Glucose 74 POC Glucose 67 L Calculated Osmolality 289 Lactic Acid Uric Acid Calcium 7.5 L Phosphorus 4.4 Magnesium Total Bilirubin Direct Bilirubin Indirect Bilirubin AST ALT Alkaline Phosphatase Creatine Kinase Troponin I Serum Total Protein Albumin 2.7 L Globulin Albumin/Globulin Ratio Urine Color Urine Clarity Urine pH Ur Specific [place] Urine Protein Urine Glucose (UA) Urine Ketones Urine Blood Urine Nitrite Urine Bilirubin Urine Urobilinogen Ur Leukocyte Esterase Urine Microscopic RBC Urine Microscopic WBC Ur Squamous Epith Cells Amorphous Sediment Urine Bacteria Urine Creatinine Protein/Creatinin Ratio Urine Sodium Urine Total Protein Stl C. cayetanensis PCR Stool Rotavirus A PCR Stl Adenov F 40/41 PCR Stool Astrovirus (PCR) Stool Campylobacter PCR Stl C. diff Tox A/B PCR Stool Cryptosporidium PCR Stl Sh Tox Pr E STEC PCR Stool E coli O157 PCR Stl Enterotoxigenic E PCR Stool EPEC (PCR) Stool EAEC (PCR) Stl E. histolytica PCR Stool Giardia Lamblia PCR Stool Salmonella PCR Stool Sapovirus (PCR) Stl P. shigelloides PCR Stl Shigella/EIEC PCR St Y.enterocolitica PCR Stool Vibrio (PCR) Stl Vibrio cholerae PCR Stl Norovirus GI/GII PCR Stl GI Panel (PCR) Com Specimen Rejected Blood Type Antibody Screen PHAM, Poly Interpret Crossmatch Reaction Pathol Review 3 02/25/18 02/25/18 02/25/18 14:22 14:22 14:22 WBC RBC Hgb 8.4 L Hct 24.9 L MCV MCH MCHC RDW Plt Count MPV Immature Gran % Seg Neutrophils % Band Neutrophils % Lymphocytes % Monocytes % Eosinophils % Basophils % Neutrophils # Lymphocytes # Monocytes # Eosinophils # Basophils # Toxic Granulation Platelet Estimate Immature Plt Fraction Anisocytosis Aracelis Cells Smear Path Review PT INR APTT Fibrinogen D-Dimer Heparin Anti-Xa, Unfract Sodium 135 L Potassium 3.5 Chloride 110 H Carbon Dioxide 15 L BUN 46 H Creatinine 3.31 H Est GFR ( Amer) 17 L Est GFR (Non-Af Amer) 14 L BUN/Creatinine Ratio 14 Glucose 69 L POC Glucose Calculated Osmolality 290 Lactic Acid Uric Acid Calcium 7.5 L Phosphorus 4.0 Magnesium 1.9 Total Bilirubin Direct Bilirubin Indirect Bilirubin AST ALT Alkaline Phosphatase Creatine Kinase Troponin I Serum Total Protein Albumin 2.5 L Globulin Albumin/Globulin Ratio Urine Color Urine Clarity Urine pH Ur Specific [place] Urine Protein Urine Glucose (UA) Urine Ketones Urine Blood Urine Nitrite Urine Bilirubin Urine Urobilinogen Ur Leukocyte Esterase Urine Microscopic RBC Urine Microscopic WBC Ur Squamous Epith Cells Amorphous Sediment Urine Bacteria Urine Creatinine Protein/Creatinin Ratio Urine Sodium Urine Total Protein Stl C. cayetanensis PCR Stool Rotavirus A PCR Stl Adenov F 40/41 PCR Stool Astrovirus (PCR) Stool Campylobacter PCR Stl C. diff Tox A/B PCR Stool Cryptosporidium PCR Stl Sh Tox Pr E STEC PCR Stool E coli O157 PCR Stl Enterotoxigenic E PCR Stool EPEC (PCR) Stool EAEC (PCR) Stl E. histolytica PCR Stool Giardia Lamblia PCR Stool Salmonella PCR Stool Sapovirus (PCR) Stl P. shigelloides PCR Stl Shigella/EIEC PCR St Y.enterocolitica PCR Stool Vibrio (PCR) Stl Vibrio cholerae PCR Stl Norovirus GI/GII PCR Stl GI Panel (PCR) Com Specimen Rejected Blood Type Antibody Screen PHAM, Poly Interpret Crossmatch Reaction Pathol Review 3 02/25/18 02/25/18 02/25/18 14:22 11:44 10:45 WBC RBC Hgb Hct MCV MCH MCHC RDW Plt Count MPV Immature Gran % Seg Neutrophils % Band Neutrophils % Lymphocytes % Monocytes % Eosinophils % Basophils % Neutrophils # Lymphocytes # Monocytes # Eosinophils # Basophils # Toxic Granulation Platelet Estimate Immature Plt Fraction Anisocytosis Aracelis Cells Smear Path Review PT 26.9 H D INR 2.4 D APTT Fibrinogen D-Dimer Heparin Anti-Xa, Unfract Sodium Potassium Chloride Carbon Dioxide BUN Creatinine Est GFR ( Amer) Est GFR (Non-Af Amer) BUN/Creatinine Ratio Glucose POC Glucose 77 Calculated Osmolality Lactic Acid Uric Acid Calcium Phosphorus Magnesium Total Bilirubin Direct Bilirubin Indirect Bilirubin AST ALT Alkaline Phosphatase Creatine Kinase Troponin I Serum Total Protein Albumin Globulin Albumin/Globulin Ratio Urine Color Urine Clarity Urine pH Ur Specific [place] Urine Protein Urine Glucose (UA) Urine Ketones Urine Blood Urine Nitrite Urine Bilirubin Urine Urobilinogen Ur Leukocyte Esterase Urine Microscopic RBC Urine Microscopic WBC Ur Squamous Epith Cells Amorphous Sediment Urine Bacteria Urine Creatinine 48 Protein/Creatinin Ratio Urine Sodium 22.9 Urine Total Protein Stl C. cayetanensis PCR Stool Rotavirus A PCR Stl Adenov F 40/41 PCR Stool Astrovirus (PCR) Stool Campylobacter PCR Stl C. diff Tox A/B PCR Stool Cryptosporidium PCR Stl Sh Tox Pr E STEC PCR Stool E coli O157 PCR Stl Enterotoxigenic E PCR Stool EPEC (PCR) Stool EAEC (PCR) Stl E. histolytica PCR Stool Giardia Lamblia PCR Stool Salmonella PCR Stool Sapovirus (PCR) Stl P. shigelloides PCR Stl Shigella/EIEC PCR St Y.enterocolitica PCR Stool Vibrio (PCR) Stl Vibrio cholerae PCR Stl Norovirus GI/GII PCR Stl GI Panel (PCR) Com Specimen Rejected Blood Type Antibody Screen PHAM, Poly Interpret Crossmatch Reaction Pathol Review 3 02/25/18 02/25/18 02/25/18 10:45 08:59 08:46 WBC RBC Hgb Hct MCV MCH MCHC RDW Plt Count MPV Immature Gran % Seg Neutrophils % Band Neutrophils % Lymphocytes % Monocytes % Eosinophils % Basophils % Neutrophils # Lymphocytes # Monocytes # Eosinophils # Basophils # Toxic Granulation Platelet Estimate Immature Plt Fraction Anisocytosis [place] Cells Smear Path Review PT INR APTT Fibrinogen D-Dimer Heparin Anti-Xa, Unfract Sodium Potassium Chloride Carbon Dioxide BUN Creatinine Est GFR ( Amer) Est GFR (Non-Af Amer) BUN/Creatinine Ratio Glucose POC Glucose 81 Calculated Osmolality Lactic Acid Uric Acid Calcium Phosphorus Magnesium Total Bilirubin Direct Bilirubin Indirect Bilirubin AST ALT Alkaline Phosphatase Creatine Kinase Troponin I Serum Total Protein Albumin Globulin Albumin/Globulin Ratio Urine Color Yellow Urine Clarity Cloudy A Urine pH 5.5 Ur Specific [place] 1.014 Urine Protein 30 H Urine Glucose (UA) Normal Urine Ketones Negative Urine Blood Small H Urine Nitrite Negative Urine Bilirubin Negative Urine Urobilinogen Normal Ur Leukocyte Esterase Moderate H Urine Microscopic RBC 3-5 H Urine Microscopic WBC 30-50 H Ur Squamous Epith Cells Few Amorphous Sediment Few Urine Bacteria Few Urine Creatinine Protein/Creatinin Ratio Urine Sodium Urine Total Protein Stl C. cayetanensis PCR Stool Rotavirus A PCR Stl Adenov F 40/41 PCR Stool Astrovirus (PCR) Stool Campylobacter PCR Stl C. diff Tox A/B PCR Stool Cryptosporidium PCR Stl Sh Tox Pr E STEC PCR Stool E coli O157 PCR Stl Enterotoxigenic E PCR Stool EPEC (PCR) Stool EAEC (PCR) Stl E. histolytica PCR Stool Giardia Lamblia PCR Stool Salmonella PCR Stool Sapovirus (PCR) Stl P. shigelloides PCR Stl Shigella/EIEC PCR St Y.enterocolitica PCR Stool Vibrio (PCR) Stl Vibrio cholerae PCR Stl Norovirus GI/GII PCR Stl GI Panel (PCR) Com Specimen Rejected Blood Type Antibody Screen PHAM, Poly Interpret NEG Crossmatch Reaction Pathol Review R 3 02/25/18 02/25/18 02/25/18 08:46 08:46 08:46 WBC 15.3 H RBC 3.35 L Hgb 9.1 L Hct 27.7 L MCV 82.7 L MCH 27.2 L MCHC 32.9 RDW 16.7 H Plt Count 102 L MPV 11.0 Immature Gran % Test Not Performed Seg Neutrophils % 88.0 Band Neutrophils % 6.0 H Lymphocytes % 2.0 Monocytes % 4.0 Eosinophils % Test Not Performed Basophils % Test Not Performed Neutrophils # 14.4 H Lymphocytes # 0.3 L Monocytes # 0.6 Eosinophils # Test Not Performed Basophils # Test Not Performed Toxic Granulation Present A Platelet Estimate Slight Decrease L Immature Plt Fraction Anisocytosis [place] Cells Smear Path Review See Below PT INR APTT Fibrinogen D-Dimer Heparin Anti-Xa, Unfract Sodium 132 L Potassium 3.7 Chloride 107 Carbon Dioxide 17 L BUN 44 H Creatinine 3.31 H Est GFR ( Amer) 17 L Est GFR (Non-Af Amer) 14 L BUN/Creatinine Ratio 13 Glucose 95 POC Glucose Calculated Osmolality 285 Lactic Acid 1.3 Uric Acid 7.6 Calcium 7.5 L Phosphorus Magnesium Total Bilirubin 0.6 Direct Bilirubin 0.3 H Indirect Bilirubin 0.3 AST 14 ALT 8 Alkaline Phosphatase 82 Creatine Kinase 139 Troponin I Serum Total Protein 5.3 L Albumin 2.8 L Globulin 2.5 Albumin/Globulin Ratio 1.1 Urine Color Urine Clarity Urine pH Ur Specific [place] Urine Protein Urine Glucose (UA) Urine Ketones Urine Blood Urine Nitrite Urine Bilirubin Urine Urobilinogen Ur Leukocyte Esterase Urine Microscopic RBC Urine Microscopic WBC Ur Squamous Epith Cells Amorphous Sediment Urine Bacteria Urine Creatinine Protein/Creatinin Ratio Urine Sodium Urine Total Protein Stl C. cayetanensis PCR Stool Rotavirus A PCR Stl Adenov F PCR Stool Astrovirus (PCR) Stool Campylobacter PCR Stl C. diff Tox A/B PCR Stool Cryptosporidium PCR Stl Sh Tox Pr E STEC PCR Stool E coli O157 PCR Stl Enterotoxigenic E PCR Stool EPEC (PCR) Stool EAEC (PCR) Stl E. histolytica PCR Stool Giardia Lamblia PCR Stool Salmonella PCR Stool Sapovirus (PCR) Stl P. shigelloides PCR Stl Shigella/EIEC PCR St Y.enterocolitica PCR Stool Vibrio (PCR) Stl Vibrio cholerae PCR Stl Norovirus GI/GII PCR Stl GI Panel (PCR) Com Specimen Rejected Blood Type Antibody Screen PHAM, Poly Interpret Crossmatch Reaction Pathol Review 3 02/25/18 02/25/18 02/25/18 08:12 02:41 02:41 WBC RBC Hgb Hct MCV MCH MCHC RDW Plt Count MPV Immature Gran % Seg Neutrophils % Band Neutrophils % Lymphocytes % Monocytes % Eosinophils % Basophils % Neutrophils # Lymphocytes # Monocytes # Eosinophils # Basophils # Toxic Granulation Platelet Estimate Immature Plt Fraction Anisocytosis [place] Cells Smear Path Review PT 115.4 H* INR 10.2 H* APTT Fibrinogen D-Dimer Heparin Anti-Xa, Unfract Sodium Potassium Chloride Carbon Dioxide BUN Creatinine Est GFR ( Amer) Est GFR (Non-Af Amer) BUN/Creatinine Ratio Glucose POC Glucose 93 Calculated Osmolality Lactic Acid 0.8 Uric Acid Calcium Phosphorus Magnesium Total Bilirubin Direct Bilirubin Indirect Bilirubin AST ALT Alkaline Phosphatase Creatine Kinase Troponin I Serum Total Protein Albumin Globulin Albumin/Globulin Ratio Urine Color Urine Clarity Urine pH Ur Specific [place] Urine Protein Urine Glucose (UA) Urine Ketones Urine Blood Urine Nitrite Urine Bilirubin Urine Urobilinogen Ur Leukocyte Esterase Urine Microscopic RBC Urine Microscopic WBC Ur Squamous Epith Cells Amorphous Sediment Urine Bacteria Urine Creatinine Protein/Creatinin Ratio Urine Sodium Urine Total Protein Stl C. cayetanensis PCR Stool Rotavirus A PCR Stl Adenov F PCR Stool Astrovirus (PCR) Stool Campylobacter PCR Stl C. diff Tox A/B PCR Stool Cryptosporidium PCR Stl Sh Tox Pr E STEC PCR Stool E coli O157 PCR Stl Enterotoxigenic E PCR Stool EPEC (PCR) Stool EAEC (PCR) Stl E. histolytica PCR Stool Giardia Lamblia PCR Stool Salmonella PCR Stool Sapovirus (PCR) Stl P. shigelloides PCR Stl Shigella/EIEC PCR St Y.enterocolitica PCR Stool Vibrio (PCR) Stl Vibrio cholerae PCR Stl Norovirus GI/GII PCR Stl GI Panel (PCR) Com Specimen Rejected Blood Type Antibody Screen PHAM, Poly Interpret Crossmatch Reaction Pathol Review 3 02/25/18 02/25/18 02/24/18 02:41 02:41 22:23 WBC 13.0 H RBC 2.75 L Hgb 7.7 L Hct 22.8 L MCV 82.9 L MCH 28.0 MCHC 33.8 RDW 16.2 H Plt Count 80 L MPV 11.0 Immature Gran % Seg Neutrophils % 78.0 Band Neutrophils % 6.0 H Lymphocytes % 8.0 Monocytes % 8.0 Eosinophils % Basophils % Neutrophils # 10.9 H Lymphocytes # 1.0 Monocytes # 1.0 Eosinophils # Basophils # Toxic Granulation Platelet Estimate Slight Decrease L Immature Plt Fraction 5.1 Anisocytosis 1+ A Aracelis Cells Smear Path Review PT INR APTT Fibrinogen D-Dimer Heparin Anti-Xa, Unfract Sodium 129 L Potassium 3.4 L Chloride 105 Carbon Dioxide 16 L BUN 45 H Creatinine 3.46 H Est GFR ( Amer) 16 L Est GFR (Non-Af Amer) 13 L BUN/Creatinine Ratio 13 Glucose 116 H POC Glucose Calculated Osmolality 281 Lactic Acid 1.1 Uric Acid Calcium 7.3 L Phosphorus 3.9 Magnesium 1.3 L Total Bilirubin Direct Bilirubin Indirect Bilirubin AST ALT Alkaline Phosphatase Creatine Kinase Troponin I 0.03 Serum Total Protein Albumin Globulin Albumin/Globulin Ratio Urine Color Urine Clarity Urine pH Ur Specific [place] Urine Protein Urine Glucose (UA) Urine Ketones Urine Blood Urine Nitrite Urine Bilirubin Urine Urobilinogen Ur Leukocyte Esterase Urine Microscopic RBC Urine Microscopic WBC Ur Squamous Epith Cells Amorphous Sediment Urine Bacteria Urine Creatinine Protein/Creatinin Ratio Urine Sodium Urine Total Protein Stl C. cayetanensis PCR Stool Rotavirus A PCR Stl Adenov F PCR Stool Astrovirus (PCR) Stool Campylobacter PCR Stl C. diff Tox A/B PCR Stool Cryptosporidium PCR Stl Sh Tox Pr E STEC PCR Stool E coli O157 PCR Stl Enterotoxigenic E PCR Stool EPEC (PCR) Stool EAEC (PCR) Stl E. histolytica PCR Stool Giardia Lamblia PCR Stool Salmonella PCR Stool Sapovirus (PCR) Stl P. shigelloides PCR Stl Shigella/EIEC PCR St Y.enterocolitica PCR Stool Vibrio (PCR) Stl Vibrio cholerae PCR Stl Norovirus GI/GII PCR Stl GI Panel (PCR) Com Specimen Rejected Blood Type Antibody Screen PHAM, Poly Interpret Crossmatch Reaction Pathol Review 3 02/24/18 02/24/18 02/24/18 21:30 21:00 20:30 WBC RBC Hgb Hct MCV MCH MCHC RDW Plt Count MPV Immature Gran % Seg Neutrophils % Band Neutrophils % Lymphocytes % Monocytes % Eosinophils % Basophils % Neutrophils # Lymphocytes # Monocytes # Eosinophils # Basophils # Toxic Granulation Platelet Estimate Immature Plt Fraction Anisocytosis Aracelis Cells Smear Path Review PT INR APTT Fibrinogen D-Dimer Heparin Anti-Xa, Unfract Sodium Potassium Chloride Carbon Dioxide BUN Creatinine Est GFR ( Amer) Est GFR (Non-Af Amer) BUN/Creatinine Ratio Glucose POC Glucose 188 H Calculated Osmolality Lactic Acid Uric Acid Calcium Phosphorus Magnesium Total Bilirubin Direct Bilirubin Indirect Bilirubin AST ALT Alkaline Phosphatase Creatine Kinase Troponin I 0.03 Serum Total Protein Albumin Globulin Albumin/Globulin Ratio Urine Color Urine Clarity Urine pH Ur Specific [place] Urine Protein Urine Glucose (UA) Urine Ketones Urine Blood Urine Nitrite Urine Bilirubin Urine Urobilinogen Ur Leukocyte Esterase Urine Microscopic RBC Urine Microscopic WBC Ur Squamous Epith Cells Amorphous Sediment Urine Bacteria Urine Creatinine 69 Protein/Creatinin Ratio 2.33 H Urine Sodium 24.9 Urine Total Protein 161 H Stl C. cayetanensis PCR Stool Rotavirus A PCR Stl Adenov F 40/41 PCR Stool Astrovirus (PCR) Stool Campylobacter PCR Stl C. diff Tox A/B PCR Stool Cryptosporidium PCR Stl Sh Tox Pr E STEC PCR Stool E coli O157 PCR Stl Enterotoxigenic E PCR Stool EPEC (PCR) Stool EAEC (PCR) Stl E. histolytica PCR Stool Giardia Lamblia PCR Stool Salmonella PCR Stool Sapovirus (PCR) Stl P. shigelloides PCR Stl Shigella/EIEC PCR St Y.enterocolitica PCR Stool Vibrio (PCR) Stl Vibrio cholerae PCR Stl Norovirus GI/GII PCR Stl GI Panel (PCR) Com Specimen Rejected Blood Type Antibody Screen PHAM, Poly Interpret Crossmatch Reaction Pathol Review 3 02/24/18 02/24/18 02/24/18 19:48 19:42 19:42 WBC 14.4 H RBC 3.20 L Hgb 9.0 L Hct 26.2 L MCV 81.9 L MCH 28.1 MCHC 34.4 RDW 16.1 H Plt Count 93 L MPV 10.4 Immature Gran % 2.9 Seg Neutrophils % 86.5 Band Neutrophils % 2.0 Lymphocytes % 3.6 Monocytes % 6.8 Eosinophils % 0.1 Basophils % 0.1 Neutrophils # 12.7 H Lymphocytes # 0.5 L Monocytes # 1.0 Eosinophils # 0.0 Basophils # 0.0 Toxic Granulation Platelet Estimate Decreased L Immature Plt Fraction 5.4 Anisocytosis 1+ A Aracelis Cells Smear Path Review PT INR APTT Fibrinogen D-Dimer Heparin Anti-Xa, Unfract Sodium Potassium Chloride Carbon Dioxide BUN Creatinine Est GFR ( Amer) Est GFR (Non-Af Amer) BUN/Creatinine Ratio Glucose POC Glucose Calculated Osmolality Lactic Acid 1.2 Uric Acid Calcium Phosphorus Magnesium Total Bilirubin Direct Bilirubin Indirect Bilirubin AST ALT Alkaline Phosphatase Creatine Kinase Troponin I Serum Total Protein Albumin Globulin Albumin/Globulin Ratio Urine Color Urine Clarity Urine pH Ur Specific [place] Urine Protein Urine Glucose (UA) Urine Ketones Urine Blood Urine Nitrite Urine Bilirubin Urine Urobilinogen Ur Leukocyte Esterase Urine Microscopic RBC Urine Microscopic WBC Ur Squamous Epith Cells Amorphous Sediment Urine Bacteria Urine Creatinine Protein/Creatinin Ratio Urine Sodium Urine Total Protein Stl C. cayetanensis PCR Stool Rotavirus A PCR Stl Adenov F 40/41 PCR Stool Astrovirus (PCR) Stool Campylobacter PCR Stl C. diff Tox A/B PCR Stool Cryptosporidium PCR Stl Sh Tox Pr E STEC PCR Stool E coli O157 PCR Stl Enterotoxigenic E PCR Stool EPEC (PCR) Stool EAEC (PCR) Stl E. histolytica PCR Stool Giardia Lamblia PCR Stool Salmonella PCR Stool Sapovirus (PCR) Stl P. shigelloides PCR Stl Shigella/EIEC PCR St Y.enterocolitica PCR Stool Vibrio (PCR) Stl Vibrio cholerae PCR Stl Norovirus GI/GII PCR Stl GI Panel (PCR) Com Specimen Rejected Blood Type O POSITIVE Antibody Screen NEGATIVE PHAM, Poly Interpret Crossmatch See Detail Reaction Pathol Review 3 02/24/18 02/24/18 18:31 18:20 WBC RBC Hgb Hct MCV MCH MCHC RDW Plt Count MPV Immature Gran % Seg Neutrophils % Band Neutrophils % Lymphocytes % Monocytes % Eosinophils % Basophils % Neutrophils # Lymphocytes # Monocytes # Eosinophils # Basophils # Toxic Granulation Platelet Estimate Immature Plt Fraction Anisocytosis [place] Cells Smear Path Review PT 97.6 H* INR 8.6 H* APTT Fibrinogen D-Dimer Heparin Anti-Xa, Unfract Sodium Potassium Chloride Carbon Dioxide BUN Creatinine Est GFR ( Amer) Est GFR (Non-Af Amer) BUN/Creatinine Ratio Glucose POC Glucose Calculated Osmolality Lactic Acid Uric Acid Calcium Phosphorus Magnesium Total Bilirubin Direct Bilirubin Indirect Bilirubin AST ALT Alkaline Phosphatase Creatine Kinase Troponin I Serum Total Protein Albumin Globulin Albumin/Globulin Ratio Urine Color Urine Clarity Urine pH Ur Specific [place] Urine Protein Urine Glucose (UA) Urine Ketones Urine Blood Urine Nitrite Urine Bilirubin Urine Urobilinogen Ur Leukocyte Esterase Urine Microscopic RBC Urine Microscopic WBC Ur Squamous Epith Cells Amorphous Sediment Urine Bacteria Urine Creatinine Protein/Creatinin Ratio Urine Sodium Urine Total Protein Stl C. cayetanensis PCR Stool Rotavirus A PCR Stl Adenov F 40/41 PCR Stool Astrovirus (PCR) Stool Campylobacter PCR Stl C. diff Tox A/B PCR Stool Cryptosporidium PCR Stl Sh Tox Pr E STEC PCR Stool E coli O157 PCR Stl Enterotoxigenic E PCR Stool EPEC (PCR) Stool EAEC (PCR) Stl E. histolytica PCR Stool Giardia Lamblia PCR Stool Salmonella PCR Stool Sapovirus (PCR) Stl P. shigelloides PCR Stl Shigella/EIEC PCR St Y.enterocolitica PCR Stool Vibrio (PCR) Stl Vibrio cholerae PCR Stl Norovirus GI/GII PCR Stl GI Panel (PCR) Com Specimen Rejected Contaminated Blood Type Antibody Screen PHAM, Poly Interpret Crossmatch Reaction Pathol Review - Attending Attestation I have seen and examined Ms. Mercedes and agree with the resident's assessment. She had an elevated INR in the setting of active E.coli/Enterobacter sepsis. Source of infection appears from GI tract or possibly the tract. Clinically improving. INR reversed with vitamin K and FFP. She has been placed on heparin gtt and may initiate coumadin in next few days. Usually on 3 mg, would start at 2 mg daily. Will arrange f/u with Dr. Hale for follow-up after discharge. We will otherwise sign off. Please call with questoins. Inpatient Charges Provider: Dr. Topher Burgos Consult Charges: 44221
[2018-02-26] MEDS ORDERED: *HR* Heparin 5,000 UNIT/ML VIAL IVP PRN ×4 (09:55→10:29)
[2018-02-26] MEDS ORDERED: *HR* Heparin 5,000 UNIT/ML VIAL IVP ONE ×2 (09:55→10:29)
[2018-02-26] MEDS ORDERED: Heparin 25,000 UNIT/500 ML D5W 25,000 UNIT/500 ML BAG IVC SCH (10:00)
[2018-02-26] MEDS ORDERED: D5% in Water 1,000 ML IVC PRN (10:29)
[2018-02-26] MEDS ORDERED: Naloxone 0.4 MG/ML INJ IVP PRN (10:29)
[2018-02-26] MEDS ORDERED: Ondansetron 4 MG/2 ML VIAL IVP PRN (10:29)
[2018-02-26] MEDS ORDERED: Dextrose Gel 15 GM/37.5 ML TUBE PO PRN ×2 (10:29)
[2018-02-26] MEDS ORDERED: *HR* Dextrose 50 % in Water (Syg) 50 ML SYRINGE IVP PRN (10:29)
[2018-02-26] MEDS: Heparin 25,000 UNIT/500 ML D5W 25,000 UNIT/500 ML BAG IVC SCH (10:57)
[2018-02-26 13:39] LABS: Hematocrit 28.2 % (35.3-44.9); Hemoglobin 9.4 g/dL (11.5-15.4); Immature Platelets 7.3 % (1.1-6.1); Mean Corpuscular HGB Conc 33.3 g/dL (31.6-35.5); Mean Corpuscular Hemoglobin 27.8 pg (28.0-33.3); Mean Corpuscular Volume 83.4 fL (83.0-100.0); Mean Platelet Volume 11.5 fL (9.4-12.4); Red Blood Count 3.38 M/mcL (3.82-4.97); Red Cell Distribution Width 16.6 % (11.5-14.5)
[2018-02-26] MEDS ORDERED: Hydrocortisone Sodium Succ 100 MG/2 ML VIAL IVP SCH (16:00)
[2018-02-26] MEDS: Artificial Tears SOLN 15 ML BOTTLE BOTH EYES PRN (18:21)
[2018-02-27] MEDS: Pantoprazole 40 MG VIAL IVP SCH (06:20)
[2018-02-27] MEDS: Insulin LISPRO 300 UNITS/3 ML VIAL SQ SCH ×4 (06:21→21:01)
[2018-02-27] MEDS: Hydrocortisone Sodium Succ 100 MG/2 ML VIAL IVP SCH (07:20)
[2018-02-27] MEDS: Piperacillin/Tazobactam 3.375 GM in 0.9 % Sodium Chloride Mini Bag 100 ML IVPB SCH ×2 (08:34→21:00)
[2018-02-27] MEDS: Heparin 25,000 UNIT/500 ML D5W 25,000 UNIT/500 ML BAG IVC SCH (08:36)
[2018-02-27] MEDS: traMADol 50 MG TABLET PO PRN ×2 (13:33→21:10)
[2018-02-27] MEDS ORDERED: Ondansetron ODT 4 MG TAB.RAPDIS SL PRN (14:40)
--- NOTE | 2018-02-27 15:22 | Internal Med Progress Note ---
<Miky Navarro - Last Filed: 02/27/18 16:14> Hospitalist Progress Note - Encounter Date of Encounter: 02/27/18 Time of Encounter: 15:19 - Subjective Interval History: Patient seen and examined this morning She reports that she is feeling better than yesterday and that she has been able to keep some food down She states that she is still having episodes of diarrhea No other acute complaints - Exam Vitals: Temp Pulse Resp BP Pulse Ox 98.0 F 73 16 160/65 96 02/27/18 12:01 02/27/18 08:00 02/27/18 08:00 02/27/18 08:00 02/27/18 08:00 Exam: Patient in no acute distress, alert and oriented 3 Heart in regular rate and rhythm without murmur or gallop Lungs clear to auscultation without wheeze or rhonchi or rales Abdomen soft and diffusely mildly tender, bowel sounds present and normal Legs nonedematous Skin warm and dry - Assessment and Plan (1) Severe sepsis Current Visit: Yes Status: Acute Assessment and Plan: Patient's vitals have returned to within normal limits and are stable She seems to have responded well to antimicrobial and intravenous fluid therapy We have returned her to her home dose of 10 mg prednisone She is now having sufficient oral intake We will continue to monitor (2) Bacteremia due to Escherichia coli Current Visit: Yes Status: Acute Assessment and Plan: Sensitivities for Escherichia coli have returned, bacteria is essentially pansensitive We will continue Zosyn for 1 more day and de-escalate tomorrow (3) Colitis presumed infectious Current Visit: Yes Status: Acute Assessment and Plan: Patient's gastrointestinal symptoms have improved greatly She is now tolerating oral intake well and is not having nausea or vomiting She does continue to complain of episodes of diarrhea however they are less frequent We will continue to advance diet as tolerated (4) Sarcoid Current Visit: No Status: Chronic Assessment and Plan: Patient follows with rheumatology for sarcoidosis with his respiratory manifestation Her respiratory status has been stable here We have resumed her home dose of prednisone, we are holding her Humira due to her active bacteremia (5) Anemia Current Visit: No Status: Chronic Assessment and Plan: Patient's hemoglobin is 9.4 today and stable We will continue to monitor (6) History of DVT (deep vein thrombosis) Current Visit: No Status: Chronic Assessment and Plan: Patient has history of chronic right popliteal DVT On admission her INR was severely elevated secondary to coumadin interaction with infection and LINDEN Her INR was corrected with vitamin K and is now stable at 1.2 We have restarted the patient's Coumadin and are bridging with heparin DVT Prophylaxis: patient on heparin and coumadin - Time Spent with Patient Total time spent is greater than 50% in coordination of care (as documented) at patient's floor/unit and/or counseling patient: Internal Medicine: Result - Labs CBC & Chem 7: 02/26/18 12:43 02/26/18 00:30 - ABG Interpretation ABG results: PT/INR, D-dimer PT 13.8 Seconds (9.4-12.1) H 02/26/18 00:30 D-Dimer 3605 ng/mLFEU (0-500) H 02/25/18 16:12 - VTE Documentation of Mechanical Device: Intermittent pneumatic compression device Consult Discharge Plan - Plan Referrals: Conchita Lovett MD [Primary Care Provider] - <Derek Tavarez - Last Filed: 02/27/18 16:46> Hospitalist Progress Note - Encounter Date of Encounter: 02/27/18 - Exam Vitals: Temp Pulse Resp BP Pulse Ox 98.0 F 73 16 160/65 96 02/27/18 12:01 02/27/18 08:00 02/27/18 08:00 02/27/18 08:00 02/27/18 08:00 - Assessment and Plan (1) Thrombocytopenia Current Visit: Yes Status: Chronic (2) Sarcoidosis Current Visit: No Status: Chronic (3) Elevated troponin Current Visit: Yes Status: Acute (4) Severe sepsis Current Visit: Yes Status: Acute (5) Colitis presumed infectious Current Visit: Yes Status: Acute (6) Acute renal failure superimposed on stage 4 chronic kidney disease Current Visit: Yes Status: Acute (7) Hyponatremia Current Visit: Yes Status: Acute (8) Diabetes mellitus Current Visit: Yes Status: Chronic (9) HTN (hypertension) Current Visit: Yes Status: Acute (10) Right leg pain Current Visit: Yes Status: Acute (11) Newly recognized heart murmur Current Visit: Yes Status: Acute (12) DIC (disseminated intravascular coagulation) Current Visit: Yes Status: Acute - Time Spent with Patient Total time spent is greater than 50% in coordination of care (as documented) at patient's floor/unit and/or counseling patient: Internal Medicine: Result - Labs CBC & Chem 7: 02/26/18 12:43 02/26/18 00:30 - ABG Interpretation ABG results: PT/INR, D-dimer PT 13.8 Seconds (9.4-12.1) H 02/26/18 00:30 D-Dimer 3605 ng/mLFEU (0-500) H 02/25/18 16:12 - Attending Attestation I examined this patient and my medical decision-making was reviewed with the Resident Physician Dr. Navarro. I agree with the documented findings, disposition and treatment plan as described except to the extent set forth below. Ms. Mercedes is a 72 year old female with known Sarcoidosis chronic steroid dependent, CKD-4, DVT on Coumadin, HTN and HLD who presented to the emergency department with chief complaint of nausea vomiting and diarrhea. Pt happened to have acute diffuse infectious collitis . Later pt developed severe sepsis, with worsening INR with concern of DIC, pt was transferred to ICU. She became E. Coli bacteremic mostly due to Colitis. She was started on broad spec abx Zosyn. Her symptoms started improving slowly. She is tolerating pO intake well. Gen: A, A< O x3 Chest: Diminished BS b/l, no crackles Heart: S1S2+ RRR No murmurs Abd: Soft Ext: mild tenderness in Rt leg a/p 1. Severe sepsis with Colitis 2. Acute E. coli bacteremia - mostly due to Colitis cont Zosyn repeat blood cx no growth consider 2 weeks of Abx due to her immunocompromise state will deescalate abx in AM finished 2 days of stress dose steroids 3. Rt LE DVT - chronic Heme Onc recommend to resume anti coag started on Coumadin- bridging with Heparin 4. Sarcodosis resumed home dose of steroids <Miky Navarro - Last Filed: 02/27/18 16:14> (5) Anemia Qualifiers: Anemia type: iron deficiency Iron deficiency anemia type: chronic blood loss Qualified Code(s): D50.0 - Iron deficiency anemia secondary to blood loss ( chronic) <Derek Tavarez - Last Filed: 02/27/18 16:46> (6) Acute renal failure superimposed on stage 4 chronic kidney disease Qualifiers: Acute renal failure type: unspecified Qualified Code(s): N17.9 - Acute kidney failure, unspecified; N18.4 - Chronic kidney disease, stage 4 (severe) (8) Diabetes mellitus Qualifiers: Diabetes mellitus type: type 2 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
[2018-02-27] MEDS: predniSONE 10 MG TABLET PO SCH (17:12)
[2018-02-27] MEDS: Metoprolol XL (24 HR) Succ 50 MG TAB.ER.24H PO SCH (17:34)
[2018-02-27] MEDS ORDERED: *HR* Warfarin 3 MG TABLET PO ONE (18:00)
[2018-02-27] MEDS ORDERED: Warfarin perPT PO PRN (18:00)
--- NOTE | 2018-02-27 22:24 | Electrocardiograph Report ---
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
[2018-02-28] MEDS: Heparin 25,000 UNIT/500 ML D5W 25,000 UNIT/500 ML BAG IVC SCH (05:24)
[2018-02-28 07:49] LABS: Hematocrit 28.4 % (35.3-44.9); Hemoglobin 9.3 g/dL (11.5-15.4); Mean Corpuscular HGB Conc 32.7 g/dL (31.6-35.5); Mean Corpuscular Hemoglobin 27.1 pg (28.0-33.3); Mean Corpuscular Volume 82.8 fL (83.0-100.0); Mean Platelet Volume 10.8 fL (9.4-12.4); Platelet Count 146 K/mcL (140-400); Red Blood Count 3.43 M/mcL (3.82-4.97); Red Cell Distribution Width 16.9 % (11.5-14.5)
[2018-02-28 08:04] LABS: INR 1.9; Prothrombin Time 21.6 Seconds (9.4-12.1)
[2018-02-28 08:32] LABS: Lymphocytes # 1.2 K/mcL (0.6-4.6); Monocytes # 0.3 K/mcL (0.0-1.3); Neutrophils # 5.2 K/mcL (1.6-8.9); Platelet Estimate Normal (Normal); Reactive Lymphocytes Present (Not Present)
[2018-02-28 08:51] LABS: Calcium 7.7 mg/dL (8.6-10.3)
--- NOTE | 2018-02-28 09:30 | Internal Med Progress Note ---
<Miky Navarro - Last Filed: 02/28/18 09:27> Hospitalist Progress Note - Encounter Date of Encounter: 02/28/18 Time of Encounter: 09:27 - Subjective Interval History: Patient seen and examined this morning She reports that she is feeling better than yesterday and that she has been able to keep some food down She states that she is still having episodes of diarrhea No other acute complaints - Exam Vitals: Temp Pulse Resp BP Pulse Ox 97.5 F L 64 20 147/78 99 02/28/18 07:57 02/28/18 07:57 02/28/18 07:57 02/28/18 07:57 02/28/18 07:57 Exam: Patient in no acute distress, alert and oriented 3 Heart in regular rate and rhythm without murmur or gallop Lungs clear to auscultation without wheeze or rhonchi or rales Abdomen soft and diffusely mildly tender, bowel sounds present and normal Legs nonedematous Skin warm and dry - Assessment and Plan (1) Severe sepsis Current Visit: Yes Status: Acute Assessment and Plan: Patient is no longer febrile or tachycardic or tachypnea Or hypotensive or hypertensive She no longer has elevated lactic acid over troponin Her blood cultures came back with Escherichia coli that is pansensitive We will de-escalate her antibiotics today We will continue to monitor her clinical disposition and labs (2) Colitis presumed infectious Current Visit: Yes Status: Acute Assessment and Plan: Blood culture revealed Escherichia coli infection sensitive to Zosyn which she has been receiving (day 2) Her symptoms have greatly improved she is able to tolerate a regular diet She is still having diarrhea but denies nausea or vomiting, she is still having some abdominal pain If her symptoms fail to improve further she may require colonoscopy but at this point she she is improving well (3) Sarcoidosis Current Visit: No Status: Chronic Assessment and Plan: We have continued the patient's home dose of prednisone 10 mg daily We are holding her Humira due to active bacteremia Once clinically stable she can follow up outpatient (4) Acute renal failure superimposed on stage 4 chronic kidney disease Current Visit: Yes Status: Acute Assessment and Plan: Creatinine remains stable at 3.3 Patient's baseline appears to be between 1.5 and 2 based on previous admissions We will continue monitor and consider nephrology consult if necessary (5) Hyponatremia Current Visit: Yes Status: Resolved Assessment and Plan: Hyponatremia resolved we will continue to monitor (6) Diabetes mellitus Current Visit: Yes Status: Chronic Assessment and Plan: Patient on medium sliding scale insulin regimen, glucose has been stable We will continue to monitor her (7) HTN (hypertension) Current Visit: Yes Status: Acute Assessment and Plan: We have resumed patient's home blood pressure medications, blood pressure has been stable, we will continue to monitor (8) Right leg pain Current Visit: Yes Status: Acute Assessment and Plan: Patient has history of chronic right popliteal DVT as well as right knee replacement We have resumed her Coumadin and her bridging with heparin She is not asking for pain medication at this time we will continue to monitor DVT Prophylaxis: Patient on Coumadin per PT and heparin - Time Spent with Patient Total time spent is greater than 50% in coordination of care (as documented) at patient's floor/unit and/or counseling patient: Internal Medicine: Result - Labs CBC & Chem 7: 02/28/18 05:52 02/28/18 05:52 Labs: Short CBC 02/28/18 Range/Units 05:52 WBC 6.6 (4.3-11.1) K/mcL Hgb 9.3 L (11.5-15.4) g/dL Hct 28.4 L (35.3-44.9) % Plt Count 146 (140-400) K/mcL Neutrophils # 5.2 (1.6-8.9) K/mcL BMP 02/28/18 05:52 Sodium 136 Potassium 3.0 L Chloride 106 Carbon Dioxide 16 L BUN 60 H Creatinine 3.30 H Glucose 256 H Calcium 7.7 L - ABG Interpretation ABG results: PT/INR, D-dimer PT 21.6 Seconds (9.4-12.1) H D 02/28/18 05:52 D-Dimer 3605 ng/mLFEU (0-500) H 02/25/18 16:12 - VTE Documentation of Mechanical Device: Intermittent pneumatic compression device Consult Discharge Plan - Plan Referrals: Conchita Lovett MD [Primary Care Provider] - <Dreek Tavarez - Last Filed: 02/28/18 16:51> Hospitalist Progress Note - Encounter Date of Encounter: 02/28/18 - Exam Vitals: Temp Pulse Resp BP Pulse Ox 98.4 F 110 15 133/75 96 02/28/18 15:09 02/28/18 15:09 02/28/18 15:09 02/28/18 15:09 02/28/18 15:09 - Assessment and Plan (1) Sarcoidosis Current Visit: No Status: Chronic (2) Severe sepsis Current Visit: Yes Status: Acute (3) Colitis presumed infectious Current Visit: Yes Status: Acute (4) Acute renal failure superimposed on stage 4 chronic kidney disease Current Visit: Yes Status: Acute (5) Hyponatremia Current Visit: Yes Status: Resolved (6) Diabetes mellitus Current Visit: Yes Status: Chronic (7) HTN (hypertension) Current Visit: Yes Status: Acute (8) Right leg pain Current Visit: Yes Status: Acute - Time Spent with Patient Total time spent is greater than 50% in coordination of care (as documented) at patient's floor/unit and/or counseling patient: Internal Medicine: Result - Labs CBC & Chem 7: 02/28/18 05:52 02/28/18 05:52 Labs: Short CBC 02/28/18 Range/Units 05:52 WBC 6.6 (4.3-11.1) K/mcL Hgb 9.3 L (11.5-15.4) g/dL Hct 28.4 L (35.3-44.9) % Plt Count 146 (140-400) K/mcL Neutrophils # 5.2 (1.6-8.9) K/mcL BMP 02/28/18 05:52 Sodium 136 Potassium 3.0 L Chloride 106 Carbon Dioxide 16 L BUN 60 H Creatinine 3.30 H Glucose 256 H Calcium 7.7 L - ABG Interpretation ABG results: PT/INR, D-dimer PT 21.6 Seconds (9.4-12.1) H D 02/28/18 05:52 D-Dimer 3605 ng/mLFEU (0-500) H 02/25/18 16:12 - Attending Attestation I examined this patient and my medical decision-making was reviewed with the Resident Physician Dr. Navarro. I agree with the documented findings, disposition and treatment plan as described except to the extent set forth below. Ms. Mercedes is a 72 year old female with known Sarcoidosis chronic steroid dependent, CKD-4, DVT on Coumadin, HTN and HLD who presented to the emergency department with chief complaint of nausea vomiting and diarrhea. Pt happened to have acute diffuse infectious collitis . Later pt developed severe sepsis, with worsening INR with concern of DIC, pt was transferred to ICU. She became E. Coli bacteremia mostly due to Colitis. She was started on broad spec abx Zosyn. Her symptoms started improving slowly. She is tolerating pO intake well. Gen: A, A< O x3 Chest: Diminished BS b/l, no crackles Heart: S1S2+ RRR No murmurs Abd: Soft Ext: mild tenderness in Rt leg a/p 1. Severe sepsis with Colitis 2. Acute E. coli bacteremia - mostly due to Colitis Switched to PO Omnicef repeat blood cx no growth consider 2 weeks of Abx due to her immunocompromised state finished 2 days of stress dose steroids 3. Rt LE DVT - chronic Heme Onc recommend to resume anti coag started on Coumadin- bridging with Heparin INR - 1.9 today 4. Sarcodosis resumed home dose of steroids <Miky Navarro - Last Filed: 02/28/18 09:27> (4) Acute renal failure superimposed on stage 4 chronic kidney disease Qualifiers: Acute renal failure type: unspecified Qualified Code(s): N17.9 - Acute kidney failure, unspecified; N18.4 - Chronic kidney disease, stage 4 (severe) (6) Diabetes mellitus Qualifiers: Diabetes mellitus type: type 2 Diabetes mellitus oysterman insulin use: with long-term use Diabetes mellitus complication status: with kidney complications Diabetes mellitus complication detail: with chronic kidney disease Chronic kidney disease stage: stage 4 (severe) Qualified Code(s): E11.22 - Type 2 diabetes mellitus with diabetic chronic kidney disease; N18.4 - Chronic kidney disease, stage 4 (severe); Z79.4 - keno terminal operator (current) use of insulin (7) HTN (hypertension) Qualifiers: Hypertension type: essential hypertension Qualified Code(s): I10 - Essential (primary) hypertension <Derek Tavarez - Last Filed: 02/28/18 16:51> (4) Acute renal failure superimposed on stage 4 chronic kidney disease Qualifiers: Acute renal failure type: unspecified Qualified Code(s): N17.9 - Acute kidney failure, unspecified; N18.4 - Chronic kidney disease, stage 4 (severe) (6) Diabetes mellitus Qualifiers: Diabetes mellitus type: type 2 Diabetes mellitus oysterman insulin use: with oysterman use Diabetes mellitus complication status: with kidney complications Diabetes mellitus complication detail: with chronic kidney disease Chronic kidney disease stage: stage 4 (severe) Qualified Code(s): E11.22 - Type 2 diabetes mellitus with diabetic chronic kidney disease; N18.4 - Chronic kidney disease, stage 4 (severe); Z79.4 - [facility] (current) use of insulin (7) HTN (hypertension) Qualifiers: Hypertension type: essential hypertension Qualified Code(s): I10 - Essential (primary) hypertension
[2018-02-28] MEDS: predniSONE 10 MG TABLET PO SCH ×2 (09:34→17:39)
[2018-02-28] MEDS: traMADol 50 MG TABLET PO PRN ×2 (09:34→17:39)
[2018-02-28] MEDS: Metoprolol XL (24 HR) Succ 50 MG TAB.ER.24H PO SCH (09:35)
[2018-02-28] MEDS: Insulin LISPRO 300 UNITS/3 ML VIAL SQ SCH ×4 (09:36→21:30)
[2018-02-28] MEDS: Piperacillin/Tazobactam 3.375 GM in 0.9 % Sodium Chloride Mini Bag 100 ML IVPB SCH (09:38)
[2018-02-28] MEDS: Artificial Tears SOLN 15 ML BOTTLE BOTH EYES PRN (09:55)
[2018-02-28] MEDS: Cefdinir 300 MG CAPSULE PO SCH (13:52)
[2018-02-28] MEDS ORDERED: *HR* Warfarin 1 MG TABLET PO ONE (18:00)
[2018-02-28] MEDS: Gabapentin 100 MG CAPSULE PO SCH (22:06)
[2018-03-01 01:11] LABS: Basophils % 0.3 %; Hematocrit 28.6 % (35.3-44.9); Hemoglobin 9.6 g/dL (11.5-15.4); Immature Granulocytes % 4.8 % (0-4); Lymphocytes # 0.5 K/mcL (0.6-4.6); Lymphocytes % 6.8 %; Mean Corpuscular HGB Conc 33.6 g/dL (31.6-35.5); Mean Corpuscular Hemoglobin 27.9 pg (28.0-33.3); Mean Corpuscular Volume 83.1 fL (83.0-100.0); Mean Platelet Volume 10.1 fL (9.4-12.4); Monocytes # 0.5 K/mcL (0.0-1.3); Monocytes % 7.2 %; Neutrophils # 5.6 K/mcL (1.6-8.9); Platelet Count 127 K/mcL (140-400); Red Blood Count 3.44 M/mcL (3.82-4.97); Red Cell Distribution Width 16.7 % (11.5-14.5); Segmented Neutrophils % 80.9 %
[2018-03-01 01:17] LABS: INR 2.6; Prothrombin Time 29.7 Seconds (9.4-12.1)
[2018-03-01 01:26] LABS: Platelet Estimate Decreased (Normal)
[2018-03-01 01:27] LABS: Anisocytosis 1+ (Not Present)
[2018-03-01 01:31] LABS: Calcium 7.9 mg/dL (8.6-10.3); Potassium 3.5 mEq/L (3.5-5.1)
[2018-03-01] MEDS: Heparin 25,000 UNIT/500 ML D5W 25,000 UNIT/500 ML BAG IVC SCH (06:41)
[2018-03-01] MEDS: Cefdinir 300 MG CAPSULE PO SCH (07:56)
[2018-03-01] MEDS: predniSONE 10 MG TABLET PO SCH ×2 (07:56→16:47)
[2018-03-01] MEDS: Metoprolol XL (24 HR) Succ 50 MG TAB.ER.24H PO SCH (07:57)
[2018-03-01] MEDS: traMADol 50 MG TABLET PO PRN ×2 (07:58→16:46)
[2018-03-01] MEDS: Insulin LISPRO 300 UNITS/3 ML VIAL SQ SCH ×4 (08:12→21:31)
--- NOTE | 2018-03-01 16:25 | Internal Med Progress Note ---
<Miky Navarro - Last Filed: 03/01/18 16:21> Hospitalist Progress Note - Encounter Date of Encounter: 03/01/18 Time of Encounter: 16:21 - Subjective Interval History: Patient seen and examined this morning She reports that she is feeling better than yesterday and that she has been able to keep some food down She states that she is still having episodes of diarrhea No other acute complaints - Exam Vitals: Temp Pulse Resp BP Pulse Ox 97.8 F 68 20 153/82 99 03/01/18 14:13 03/01/18 14:13 03/01/18 14:13 03/01/18 14:13 03/01/18 14:13 Exam: Patient in no acute distress, alert and oriented 3 Heart in regular rate and rhythm without murmur or gallop Lungs clear to auscultation without wheeze or rhonchi or rales Abdomen soft and diffusely mildly tender, bowel sounds present and normal Legs nonedematous Skin warm and dry - Assessment and Plan (1) Severe sepsis Current Visit: Yes Status: Resolved Assessment and Plan: Patient is no longer febrile or tachycardic or tachypnea Or hypotensive or hypertensive She no longer has elevated lactic acid or troponin Her blood cultures came back with Escherichia coli that is pansensitive Antibiotics de-escalated to Omnnicef, day 2 Plan Continue antibiotics Monitor for resolution of diarrhea Social work consulted and considering to SNF placement Sunday if diarrhea resolves (2) Colitis presumed infectious Current Visit: Yes Status: Acute Assessment and Plan: Blood culture revealed Escherichia coli infection, patient now on day 2 of Omnicef after 2 days Zosyn Her symptoms have greatly improved she is able to tolerate a regular diet She is still having diarrhea but denies nausea or vomiting, she is still having some abdominal pain See rest of plan above (3) Sarcoidosis Current Visit: Yes Status: Chronic Assessment and Plan: We have continued the patient's home dose of prednisone 10 mg daily We are holding her Humira due to active bacteremia Once clinically stable she can follow up outpatient (4) Acute renal failure superimposed on stage 4 chronic kidney disease Current Visit: Yes Status: Acute Assessment and Plan: Creatinine remains stable at 3.2 Patient's baseline appears to be between 1.5 and 2 based on previous admissions Plan We are renally dosing medications and avoiding nephrotoxins We will continue to monitor and consider nephrology consult if necessary (5) Diabetes mellitus Current Visit: Yes Status: Chronic Assessment and Plan: Patient on medium sliding scale insulin regimen, glucose has been stable Plan We will continue to monitor her glucose and adjust insulin as necessary (6) HTN (hypertension) Current Visit: Yes Status: Chronic Assessment and Plan: We have resumed patient's home Toprol, blood pressure has been stable, Hydralazine PRN ordered, we will continue to monitor (7) Right leg pain Current Visit: Yes Status: Chronic Assessment and Plan: Patient has history of chronic right popliteal DVT as well as right knee replacement We have resumed her Coumadin Plan She is not asking for pain medication at this time we will continue to monitor DVT Prophylaxis: Patient receiving coumadin per PT - Time Spent with Patient Total time spent is greater than 50% in coordination of care (as documented) at patient's floor/unit and/or counseling patient: Internal Medicine: Result - Labs CBC & Chem 7: 03/01/18 00:55 03/01/18 00:55 Labs: Short CBC 03/01/18 Range/Units 00:55 WBC 6.9 (4.3-11.1) K/mcL Hgb 9.6 L (11.5-15.4) g/dL Hct 28.6 L (35.3-44.9) % Plt Count 127 L (140-400) K/mcL Neutrophils # 5.6 (1.6-8.9) K/mcL BMP 03/01/18 00:55 Sodium 136 Potassium 3.5 Chloride 110 H Carbon Dioxide 15 L BUN 60 H Creatinine 3.23 H Glucose 259 H Calcium 7.9 L - ABG Interpretation ABG results: PT/INR, D-dimer PT 29.7 Seconds (9.4-12.1) H 03/01/18 00:55 D-Dimer 3605 ng/mLFEU (0-500) H 02/25/18 16:12 - VTE Documentation of Mechanical Device: Intermittent pneumatic compression device Consult Discharge Plan - Plan Referrals: Conchita Lovett MD [Primary Care Provider] - <Derek Tavarez - Last Filed: 03/01/18 17:13> Hospitalist Progress Note - Encounter Date of Encounter: 03/01/18 - Exam Vitals: Temp Pulse Resp BP Pulse Ox 97.8 F 68 20 153/82 99 03/01/18 14:13 03/01/18 14:13 03/01/18 14:13 03/01/18 14:13 03/01/18 14:13 - Assessment and Plan (1) Sarcoidosis Current Visit: Yes Status: Chronic (2) Severe sepsis Current Visit: Yes Status: Resolved (3) Colitis presumed infectious Current Visit: Yes Status: Acute (4) Acute renal failure superimposed on stage 4 chronic kidney disease Current Visit: Yes Status: Acute (5) Diabetes mellitus Current Visit: Yes Status: Chronic (6) HTN (hypertension) Current Visit: Yes Status: Chronic (7) Right leg pain Current Visit: Yes Status: Chronic - Time Spent with Patient Total time spent is greater than 50% in coordination of care (as documented) at patient's floor/unit and/or counseling patient: Internal Medicine: Result - Labs CBC & Chem 7: 03/01/18 00:55 03/01/18 00:55 Labs: Short CBC 03/01/18 Range/Units 00:55 WBC 6.9 (4.3-11.1) K/mcL Hgb 9.6 L (11.5-15.4) g/dL Hct 28.6 L (35.3-44.9) % Plt Count 127 L (140-400) K/mcL Neutrophils # 5.6 (1.6-8.9) K/mcL BMP 03/01/18 00:55 Sodium 136 Potassium 3.5 Chloride 110 H Carbon Dioxide 15 L BUN 60 H Creatinine 3.23 H Glucose 259 H Calcium 7.9 L - ABG Interpretation ABG results: PT/INR, D-dimer PT 29.7 Seconds (9.4-12.1) H 03/01/18 00:55 D-Dimer 3605 ng/mLFEU (0-500) H 02/25/18 16:12 - Attending Attestation I examined this patient and my medical decision-making was reviewed with the Resident Physician Dr. Navarro. I agree with the documented findings, disposition and treatment plan as described except to the extent set forth below. Ms. Mercedes is a 72 year old female with known Sarcoidosis chronic steroid dependent, CKD-4, DVT on Coumadin, HTN and HLD who presented to the emergency department with chief complaint of nausea vomiting and diarrhea. Pt happened to have acute diffuse infectious collitis . Later pt developed severe sepsis, with worsening INR with concern of DIC, pt was transferred to ICU. She became E. Coli bacteremia mostly due to Colitis. She was started on broad spec abx Zosyn. Her symptoms started improving slowly. She is tolerating pO intake well. Still has 2 to 3 soft BM Gen: A, A< O x3 Chest: Diminished BS b/l, no crackles Heart: S1S2+ RRR No murmurs Abd: Soft Ext: mild tenderness in Rt leg a/p 1. Severe sepsis with Colitis 2. Acute E. coli bacteremia - mostly due to Colitis Cont PO Omnicef repeat blood cx no growth Will consider 2 weeks of Abx due to her immunocompromised state finished 2 days of stress dose steroids 3. Rt LE DVT - chronic INR therapeutic continue Coumadin 4. Sarcodosis resumed home dose of steroids <Miky Navarro - Last Filed: 03/01/18 16:21> (4) Acute renal failure superimposed on stage 4 chronic kidney disease Qualifiers: Acute renal failure type: unspecified Qualified Code(s): N17.9 - Acute kidney failure, unspecified; N18.4 - Chronic kidney disease, stage 4 (severe) (5) Diabetes mellitus Qualifiers: Diabetes mellitus type: type 2 Diabetes mellitus intermediate teacher insulin use: with mcc use Diabetes mellitus complication status: with kidney complications Diabetes mellitus complication detail: with chronic kidney disease Chronic kidney disease stage: stage 4 (severe) Qualified Code(s): E11.22 - Type 2 diabetes mellitus with diabetic chronic kidney disease; N18.4 - Chronic kidney disease, stage 4 (severe); Z79.4 - senior living (current) use of insulin (6) HTN (hypertension) Qualifiers: Hypertension type: essential hypertension Qualified Code(s): I10 - Essential (primary) hypertension <Thallapaneni,Rambabu - Last Filed: 03/01/18 17:13> (4) Acute renal failure superimposed on stage 4 chronic kidney disease Qualifiers: Acute renal failure type: unspecified Qualified Code(s): N17.9 - Acute kidney failure, unspecified; N18.4 - Chronic kidney disease, stage 4 (severe) (5) Diabetes mellitus Qualifiers: Diabetes mellitus type: type 2 Diabetes mellitus mcc insulin use: with mcc use Diabetes mellitus complication status: with kidney complications Diabetes mellitus complication detail: with chronic kidney disease Chronic kidney disease stage: stage 4 (severe) Qualified Code(s): E11.22 - Type 2 diabetes mellitus with diabetic chronic kidney disease; N18.4 - Chronic kidney disease, stage 4 (severe); Z79.4 - senior living (current) use of insulin (6) HTN (hypertension) Qualifiers: Hypertension type: essential hypertension Qualified Code(s): I10 - Essential (primary) hypertension
[2018-03-01] MEDS ORDERED: *HR* Warfarin 1 MG TABLET PO ONE (18:00)
[2018-03-01] MEDS: Insulin DETEMIR 100 UNIT/ML X5UNITS SQ SCH (21:31)
[2018-03-01] MEDS: Gabapentin 100 MG CAPSULE PO SCH (21:31)
[2018-03-02 04:57] LABS: Basophils # 0.1 K/mcL (0.0-0.2); Basophils % 0.6 %; Eosinophils % 0.1 %; Hematocrit 29.4 % (35.3-44.9); Hemoglobin 9.8 g/dL (11.5-15.4); Immature Granulocytes % 8.3 % (0-4); Lymphocytes # 0.7 K/mcL (0.6-4.6); Lymphocytes % 7.5 %; Mean Corpuscular HGB Conc 33.3 g/dL (31.6-35.5); Mean Corpuscular Hemoglobin 27.9 pg (28.0-33.3); Mean Corpuscular Volume 83.8 fL (83.0-100.0); Mean Platelet Volume 9.9 fL (9.4-12.4); Monocytes # 0.6 K/mcL (0.0-1.3); Monocytes % 6.5 %; Neutrophils # 6.9 K/mcL (1.6-8.9); Platelet Count 152 K/mcL (140-400); Red Blood Count 3.51 M/mcL (3.82-4.97); Red Cell Distribution Width 16.6 % (11.5-14.5)
[2018-03-02 05:04] LABS: INR 3.6
[2018-03-02 05:22] LABS: Calcium 8.1 mg/dL (8.6-10.3); Potassium 3.6 mEq/L (3.5-5.1)
[2018-03-02 05:50] LABS: Platelet Estimate Normal (Normal)
[2018-03-02 05:51] LABS: Anisocytosis 1+ (Not Present); Hypochromasia Present (Not Present); Macrocytosis Present (Not Present); Ovalocytes 1+ (Not Present); Tear Drop Cells 1+ (Not Present)
[2018-03-02] MEDS: Insulin LISPRO 300 UNITS/3 ML VIAL SQ SCH ×4 (11:03→20:18)
[2018-03-02] MEDS: Metoprolol XL (24 HR) Succ 50 MG TAB.ER.24H PO SCH (11:08)
[2018-03-02] MEDS: Cefdinir 300 MG CAPSULE PO SCH (11:08)
[2018-03-02] MEDS: predniSONE 10 MG TABLET PO SCH ×2 (11:08→18:11)
[2018-03-02] MEDS: Insulin DETEMIR 100 UNIT/ML X5UNITS SQ SCH ×2 (11:08→20:19)
[2018-03-02] MEDS: traMADol 50 MG TABLET PO PRN ×2 (11:08→18:12)
--- NOTE | 2018-03-02 13:42 | Internal Med Progress Note ---
Hospitalist Progress Note - Encounter Date of Encounter: 03/02/18 Time of Encounter: 11:00 - Subjective Interval History: Ms. Mercedes is a 72 year old female with known Sarcoidosis chronic steroid dependent, CKD-4, DVT on Coumadin, HTN and HLD who presented to the emergency department with chief complaint of nausea vomiting and diarrhea. Pt happened to have acute diffuse infectious collitis . Later pt developed severe sepsis, with worsening INR with concern of DIC, pt was transferred to ICU. She became E. Coli bacteremia mostly due to Colitis. She was started on broad spec abx Zosyn initially and switched to Omnicef now. Her symptoms started improving slowly. She is tolerating pO intake well. Still has 2 to 3 soft BM - Exam Vitals: Temp Pulse Resp BP Pulse Ox 97.6 F 71 14 183/96 97 03/02/18 08:37 03/02/18 08:37 03/02/18 08:37 03/02/18 08:37 03/02/18 08:37 Exam: Gen: Alert, awake, Oriented to time,place and person Chest: Diminished breath sounds B/L, No wheezing, No crackles, No rales Heart: S1S2+ RRR No murmurs Abd: Soft, NT, BS +, No organomegaly Ext: No edema, pulses are palpable, chronic tenderness in the right leg Neuro : Benign findings Skin: No rash. - Assessment and Plan (1) Severe sepsis Current Visit: Yes Status: Resolved Assessment and Plan: With the bacteremia - E. coli due to infectiouscolitis improved continue PO Omnicef # 5/10 (2) Colitis presumed infectious Current Visit: Yes Status: Acute Assessment and Plan: Improving still have diarrhea however her GI panel came back is completely negative continue close monitoring continue oral antibiotic on probiotics (3) Sarcoidosis Current Visit: Yes Status: Chronic Assessment and Plan: Resumed home dose steroids (4) Acute renal failure superimposed on stage 4 chronic kidney disease Current Visit: Yes Status: Acute Assessment and Plan: Due to sepsis and dehydration improved (5) Diabetes mellitus Current Visit: Yes Status: Chronic Assessment and Plan: on ISS + Levemir (6) HTN (hypertension) Current Visit: Yes Status: Chronic Assessment and Plan: We have resumed patient's home Toprol, blood pressure has been stable, Hydralazine PRN ordered, we will continue to monitor (7) Right leg pain Current Visit: Yes Status: Chronic Assessment and Plan: Due to chronic DVT on Coumadin INR @ 3.6 held coumadin for today - Time Spent with Patient Total time spent is greater than 50% in coordination of care (as documented) at patient's floor/unit and/or counseling patient: Internal Medicine: Result - Labs CBC & Chem 7: 03/02/18 04:40 03/02/18 04:40 Labs: Short CBC 03/02/18 Range/Units 04:40 WBC 8.9 (4.3-11.1) K/mcL Hgb 9.8 L (11.5-15.4) g/dL Hct 29.4 L (35.3-44.9) % Plt Count 152 (140-400) K/mcL Neutrophils # 6.9 (1.6-8.9) K/mcL BMP 03/02/18 04:40 Sodium 138 Potassium 3.6 Chloride 110 H Carbon Dioxide 19 L BUN 54 H Creatinine 2.43 H Glucose 174 H Calcium 8.1 L - ABG Interpretation ABG results: PT/INR, D-dimer PT 41.0 Seconds (9.4-12.1) H 03/02/18 04:40 D-Dimer 3605 ng/mLFEU (0-500) H 02/25/18 16:12 - VTE Documentation of Mechanical Device: Intermittent pneumatic compression device Consult Discharge Plan - Plan Referrals: Conchita Lovett MD [Primary Care Provider] - (4) Acute renal failure superimposed on stage 4 chronic kidney disease Qualifiers: Acute renal failure type: unspecified Qualified Code(s): N17.9 - Acute kidney failure, unspecified; N18.4 - Chronic kidney disease, stage 4 (severe) (5) Diabetes mellitus Qualifiers: Diabetes mellitus type: type 2 Diabetes mellitus correction insulin use: with correction use Diabetes mellitus complication status: with kidney complications Diabetes mellitus complication detail: with chronic kidney disease Chronic kidney disease stage: stage 4 (severe) Qualified Code(s): E11.22 - Type 2 diabetes mellitus with diabetic chronic kidney disease; N18.4 - Chronic kidney disease, stage 4 (severe); Z79.4 - supervisor intermediates (current) use of insulin (6) HTN (hypertension) Qualifiers: Hypertension type: essential hypertension Qualified Code(s): I10 - Essential (primary) hypertension
[2018-03-02] MEDS: Gabapentin 100 MG CAPSULE PO SCH (20:19)
[2018-03-03 05:08] LABS: INR 3.1; Prothrombin Time 35.2 Seconds (9.4-12.1)
[2018-03-03 05:24] LABS: Calcium 8.3 mg/dL (8.6-10.3); Potassium 3.7 mEq/L (3.5-5.1)
[2018-03-03] MEDS: Insulin LISPRO 300 UNITS/3 ML VIAL SQ SCH ×4 (10:56→22:19)
[2018-03-03] MEDS: Cefdinir 300 MG CAPSULE PO SCH (10:56)
[2018-03-03] MEDS: predniSONE 10 MG TABLET PO SCH ×2 (10:57→16:20)
[2018-03-03] MEDS: traMADol 50 MG TABLET PO PRN (10:57)
[2018-03-03] MEDS: Metoprolol XL (24 HR) Succ 50 MG TAB.ER.24H PO SCH (10:57)
[2018-03-03] MEDS: Insulin DETEMIR 100 UNIT/ML X5UNITS SQ SCH ×2 (10:58→22:19)
--- NOTE | 2018-03-03 14:24 | Internal Med Progress Note ---
Hospitalist Progress Note - Encounter Date of Encounter: 03/03/18 Time of Encounter: 13:40 - Subjective Interval History: Ms. Mercedes is a 72 year old female with known Sarcoidosis chronic steroid dependent, CKD-4, DVT on Coumadin, HTN and HLD who presented to the emergency department with chief complaint of nausea vomiting and diarrhea. Pt happened to have acute diffuse infectious collitis . Later pt developed severe sepsis, with worsening INR with concern of DIC, pt was transferred to ICU. She became E. Coli bacteremia mostly due to Colitis. She was started on broad spec abx Zosyn initially and switched to Omnicef. Her symptoms started improving slowly. She is tolerating pO intake well. Still has 2 to 3 soft BM..abd pain resolved - Exam Vitals: Temp Pulse Resp BP Pulse Ox 97.7 F 99 16 146/67 97 03/03/18 11:02 03/03/18 11:02 03/03/18 11:02 03/03/18 11:02 03/03/18 11:02 Exam: Gen: Alert, awake, Oriented to time,place and person Chest: Diminished breath sounds B/L, No wheezing, No crackles, No rales Heart: S1S2+ RRR No murmurs Abd: Soft, NT, BS +, No organomegaly Ext: No edema, pulses are palpable, chronic tenderness in the right leg Neuro : Benign findings Skin: No rash. - Assessment and Plan (1) Severe sepsis Current Visit: Yes Status: Resolved Assessment and Plan: With E. Coli bacteremia due to infectious colitis improved continue PO Omnicef # 6/10 (2) Colitis presumed infectious Current Visit: Yes Status: Acute Assessment and Plan: Improving still have diarrhea however her GI panel came back is completely negative continue close monitoring continue oral antibiotic on probiotics (3) Sarcoidosis Current Visit: Yes Status: Chronic Assessment and Plan: Resumed home dose steroids (4) Acute renal failure superimposed on stage 4 chronic kidney disease Current Visit: Yes Status: Acute Assessment and Plan: Due to sepsis and dehydration improved (5) Diabetes mellitus Current Visit: Yes Status: Chronic Assessment and Plan: on ISS + Levemir (6) HTN (hypertension) Current Visit: Yes Status: Chronic Assessment and Plan: We have resumed patient's home Toprol, blood pressure has been stable, Hydralazine PRN ordered, we will continue to monitor (7) Right leg pain Current Visit: Yes Status: Chronic Assessment and Plan: Due to chronic DVT on Coumadin INR @ 3.6 held coumadin for today (8) Physical deconditioning Current Visit: Yes Status: Acute Assessment and Plan: PT / OT eval done recommend ECF placement She agreed to go to [facility] possible d.c to ECF in AM - Time Spent with Patient Total time spent is greater than 50% in coordination of care (as documented) at patient's floor/unit and/or counseling patient: Internal Medicine: Result - Labs CBC & Chem 7: 03/02/18 04:40 03/03/18 04:52 Labs: BMP 03/03/18 04:52 Sodium 139 Potassium 3.7 Chloride 112 H Carbon Dioxide 18 L BUN 47 H Creatinine 2.11 H Glucose 169 H Calcium 8.3 L - ABG Interpretation ABG results: PT/INR, D-dimer PT 35.2 Seconds (9.4-12.1) H 03/03/18 04:52 D-Dimer 3605 ng/mLFEU (0-500) H 02/25/18 16:12 - VTE Documentation of Mechanical Device: Intermittent pneumatic compression device Consult Discharge Plan - Plan Referrals: Conchita Lovett MD [Primary Care Provider] - (4) Acute renal failure superimposed on stage 4 chronic kidney disease Qualifiers: Acute renal failure type: unspecified Qualified Code(s): N17.9 - Acute kidney failure, unspecified; N18.4 - Chronic kidney disease, stage 4 (severe) (5) Diabetes mellitus Qualifiers: Diabetes mellitus type: type 2 Diabetes mellitus oil heaterman insulin use: with retirement use Diabetes mellitus complication status: with kidney complications Diabetes mellitus complication detail: with chronic kidney disease Chronic kidney disease stage: stage 4 (severe) Qualified Code(s): E11.22 - Type 2 diabetes mellitus with diabetic chronic kidney disease; N18.4 - Chronic kidney disease, stage 4 (severe); Z79.4 - halfway (current) use of insulin (6) HTN (hypertension) Qualifiers: Hypertension type: essential hypertension Qualified Code(s): I10 - Essential (primary) hypertension
[2018-03-03] MEDS: Gabapentin 100 MG CAPSULE PO SCH (20:00)
[2018-03-04] MEDS: traMADol 50 MG TABLET PO PRN ×2 (00:38→09:21)
[2018-03-04 04:35] LABS: Prothrombin Time 22.3 Seconds (9.4-12.1)
[2018-03-04] MEDS: Insulin LISPRO 300 UNITS/3 ML VIAL SQ SCH ×3 (09:12→16:40)
[2018-03-04] MEDS: predniSONE 10 MG TABLET PO SCH ×2 (09:21→16:40)
[2018-03-04] MEDS: Cefdinir 300 MG CAPSULE PO SCH (09:21)
[2018-03-04] MEDS: Metoprolol XL (24 HR) Succ 50 MG TAB.ER.24H PO SCH (09:21)
[2018-03-04] MEDS: Insulin DETEMIR 100 UNIT/ML X5UNITS SQ SCH (09:21)
--- NOTE | 2018-03-04 10:54 | Discharge Summary ---
<Miky Navarro - Last Filed: 03/04/18 16:54> - NOTES TO OUTPATIENT PROVIDER Notes to Outpatient Provider: Patient was admitted and treated for Escherichia coli colitis with sepsis. Her symptoms greatly improved with antibiotics she is now tolerating oral intake and does not have abdominal pain and his clinically resolved. She is still having diarrhea which I attribute to disturbance of normal amy, she is receiving probiotics and this should resolve in time. We have held her Humira, please re-initiate after completion of antibiotic course. Date of Encounter: 03/04/18 Time of Encounter: 10:51 - Discharge Diagnosis (1) Severe sepsis Priority: Primary Status: Resolved Assessment and Plan: With E. Coli bacteremia due to infectious colitis Patient is now hemodynamically stable and does not meet sepsis criteria, clinical disposition improved Patient is on day 5 of Cefdinir Repeat blood cultures have not had growth Plan Patient will be discharged to [facility] on 9 more days of cefdinir (2) Colitis presumed infectious Priority: Secondary Status: Resolved Assessment and Plan: Improving, no abdominal pain or vomiting, tolerating regular diet still having diarrhea, I suspect secondary to disturbance of normal gut amy GI panel came back is completely negative Plan continue oral cefdinir 9 days on probiotics (3) Sarcoidosis Priority: Secondary Status: Chronic Assessment and Plan: Home Ruth held secondary to bacteremia Resumed home dose steroids Plan Continue home dose steroids Will not continue Ruth, will allow outpatient provider to resume once antibiotic course complete (4) Acute renal failure superimposed on stage 4 chronic kidney disease Priority: Secondary Status: Resolved Assessment and Plan: acute renal failure secondary to sepsis and dehydration improved with resolution of sepsis and re-initiation of oral intake medication renally dosed Creatinine improved to baseline plan resume home medication of losartan Qualifiers: Acute renal failure type: unspecified Qualified Code(s): N17.9 - Acute kidney failure, unspecified; N18.4 - Chronic kidney disease, stage 4 (severe) (5) Diabetes mellitus Priority: Secondary Status: Chronic Assessment and Plan: Patient on sliding scale insulin during admission, glucose stable plan resume home lantus and novolog Qualifiers: Diabetes mellitus type: type 2 Diabetes mellitus chcf insulin use: with continuous churn buttermaker use Diabetes mellitus complication status: with kidney complications Diabetes mellitus complication detail: with chronic kidney disease Chronic kidney disease stage: stage 4 (severe) Qualified Code(s): E11.22 - Type 2 diabetes mellitus with diabetic chronic kidney disease; N18.4 - Chronic kidney disease, stage 4 (severe); 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.4 - 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 operator (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) use of insulin (6) HTN (hypertension) Priority: Secondary Status: Chronic Assessment and Plan: Home toprol and hydralazine PRN during admission, blood pressures stable plan We will resume home losartan and toprol Qualifiers: Hypertension type: essential hypertension Qualified Code(s): I10 - Essential (primary) hypertension (7) Right leg pain Priority: Secondary Status: Chronic Assessment and Plan: Due to chronic DVT and knee replacement on Coumadin and ultram INR @ 3.6 Plan continue home ultram and coumadin (8) Physical deconditioning Priority: Secondary Status: Acute Assessment and Plan: PT / OT eval done, recommend ECF placement She agreed to go to [facility] Plan DC to ECF with PT/OT Hospital course: Ms. Mercedes is a 72 year old female who presented to the emergency department with chief complaint of nausea vomiting and diarrhea. The patient stated that for the prior 5-6 days she had been ill with nausea vomiting and diarrhea. Patient stated she has been unable to keep any water or food down at all. Patient visited urgent care day prior who gave the patient Zofran however the patient's nausea was not improved and continued to have vomiting and diarrhea and presented to ED. Patient denied any recent antibiotic use or sick contacts. Patient stated that approximately 4 days prior she started taking Pepto-Bismol for the nausea and subsequently did developed black diarrhea for the prior 2-3 days. Patient denied any chest pain, shortness of breath, palpitations, neck pain, blurry vision, double vision, headache. Patient admitted to nausea, vomiting, diarrhea, generalized weakness and fatigue, subjective fevers and worsening chills. In the emergency department the patient was found to have worsening renal failure with significant leukocytosis as well as a mildly elevated troponin and hyponatremia. She was also noted to be tachycardic with low normal blood pressures which have been improved with IV fluids. Imaging revealed findings consistent with colitis. Patient was admitted with sepsis and colitis and acute on chronic renal failure with volume depletion. INR was found to be 8, vitamin K was given and patient was transferred to ICU for possible DIC. Blood culture found E. coli bacteremia. Zosyn was started, IV fluids given. Patient clinical disposition rapidly improved and she was transferred to the floor. E. Coli found to be kilgore-sensitive, patient switched to Omnicef. Patient continued to have diarrhea but started tolerating diet without vomiting, did continue to have diarrhea. After 5 days Omnicef clinical disposition was stable for discharge and patient agreed to go to [facility]. She continued to have diarrhea, GI panel negative, likely secondary to gut amy disturbance. She was discharged with 9 additional days Omnicef and probiotic. Discharge discussed with: patient - Time Spent with Patient Total time spent providing and/or coordinating discharge services: - Discharge Medications Prescriptions: Cefdinir [Omnicef] 300 mg PO DAILY 9 Days #9 capsule Home Medications: Atorvastatin [Lipitor] 40 mg PO HS #0 02/23/15 [History] Furosemide [Lasix] 20 mg PO DAILY #0 02/23/15 [History] Losartan Potassium [Cozaar] 100 mg PO DAILY #0 02/23/15 [History] Insulin ASPART [Novolog] 10 - 15 unit SQ TIDWM 01/15/16 [History] Warfarin [Coumadin] 3 mg PO HS 04/03/16 [History] EPINEPHrine [Epipen] 0.3 mg IM ONCE PRN #1 kit 05/03/17 [Rx] Insulin Glargine [Lantus] 36 unit SQ QAM 09/12/17 [History] Gabapentin [Neurontin] 100 mg PO HS 10/03/17 [History] Metoprolol XL (24 HR) Succ [Toprol Xl] 50 mg PO DAILY 10/03/17 [History] Pantoprazole Sodium [Protonix] 40 mg PO DAILY 10/03/17 [History] Insulin Glargine [Lantus] 14 unit SQ HS 02/24/18 [History] Pramipexole Di-HCl [Pramipexole Dihydrochloride] 0.125 mg PO HS 02/24/18 [ History] Tramadol HCl [Ultram] 50 - 100 mg PO BID PRN 02/24/18 [History] predniSONE [PredniSONE] 10 mg PO BIDWM 02/24/18 [History] Cefdinir [Omnicef] 300 mg PO DAILY 9 Days #9 capsule 03/04/18 [Rx] Allergies/Adverse Reactions: 3 Allergy/AdvReac Type Severity Reaction Status Date / Time niacin Allergy Mild Rash Verified 02/23/18 20:09 [From Niaspan Extended-Release] sertraline Allergy Mild Dizziness Verified 02/23/18 20:09 aspirin [ASA] Allergy See Verified 02/23/18 20:09 Comments infliximab [From Remicade] Allergy Rash Verified 02/23/18 20:09 NSAIDS (Non-Steroidal Allergy See Verified 02/23/18 20:09 Anti-Inflamma Comments Date of admission: 02/24/18 17:50 Primary care physician: Conchita Lovett MD Consults: 02/24/18 20:19 Consult to Transition Assistant [CONS] Routine Reason for SW Consult: discharge planning 02/25/18 07:54 Consult to Oncology Hematology [CONS] Routine Consulting Provider: [facility] Reason for Consult: possible DIC with supratheraputic INR and recent RLE DVT Call Completed: Yes 02/27/18 14:13 Consult to Occupational Therapy [CONS] Routine Comment: Evaluate, develop and implement POC Reason for Consult: evaluate for discharge needs Does patient have active BEDREST order?: No Is patient medically & hemodynamically stable?: Yes Patient assessed for mobility or mobilized this visit?: No Consult to Physical Therapy [CONS] Routine Comment: Evaluate, develop and implement POC Reason for Consult: evaluate for discharge needs Does patient have active BEDREST order?: No Is patient medically & hemodynamically stable?: Yes Patient assessed for mobility or mobilized this visit?: No Discharging clinician: Miky Navarro - Constitutional Vitals: Temp Pulse Resp BP Pulse Ox 98.2 F 58 16 191/79 97 03/04/18 06:28 03/04/18 06:28 03/04/18 06:28 03/04/18 06:28 03/04/18 06:28 Exam: Patient in no acute distress, alert and oriented x 3 Cranial nerves 2-12 intact Heart in regular rate and rhythm without murmur or gallop Lungs clear to auscultation without wheeze or rhonchi Abdomen soft and nontender with normal bowel sounds and no organomegaly Right knee edematous and tender to palpation, legs non edematous Skin warm and dry - Patient Status Disposition: Transfer Inpatient Rehab Fac Condition: Good Functional capacity at discharge: uses cane/walker Overall status at discharge: patient is progressing back to baseline - Discharge Instructions Instructions: Sepsis (DC) Follow Up With: Conchita Lovett MD [Primary Care Provider] - - Diet and Activity Activity: increase activity as tolerated Diet: diabetic diet - VTE Documentation of Mechanical Device: Intermittent pneumatic compression device <[email or web address] kay - Last Filed: 03/04/18 17:05> Orders not resulted at time of discharge: Pending orders 03/05/18 04:00 PT/INR [Prothrombin Time INR] [COAG] AM 0400 03/06/18 04:00 PT/INR [Prothrombin Time INR] [COAG] AM 0400 03/07/18 04:00 PT/INR [Prothrombin Time INR] [COAG] AM 0400 Date of Encounter: 03/04/18 - Discharge Diagnosis (1) Sarcoidosis Status: Chronic (2) Severe sepsis Status: Resolved (3) Colitis presumed infectious Status: Resolved (4) Acute renal failure superimposed on stage 4 chronic kidney disease Status: Resolved Qualifiers: Acute renal failure type: unspecified Qualified Code(s): N17.9 - Acute kidney failure, unspecified; N18.4 - Chronic kidney disease, stage 4 (severe) (5) Diabetes mellitus Status: Chronic Qualifiers: Diabetes mellitus type: type 2 Diabetes mellitus chcf insulin use: with continuous churn buttermaker use Diabetes mellitus complication status: with kidney complications Diabetes mellitus complication detail: with chronic kidney disease Chronic kidney disease stage: stage 4 (severe) Qualified Code(s): E11.22 - Type 2 diabetes mellitus with diabetic chronic kidney disease; N18.4 - Chronic kidney disease, stage 4 (severe); Z79.4 - FPC (current) use of insulin (6) HTN (hypertension) Status: Chronic Qualifiers: Hypertension type: essential hypertension Qualified Code(s): I10 - Essential (primary) hypertension (7) Right leg pain Status: Chronic (8) Physical deconditioning Status: Acute Hospital course: Ms. Mercedes is a 72 year old female - Time Spent with Patient Total time spent providing and/or coordinating discharge services: Date of admission: 02/24/18 17:50 Primary care physician: Conchita Lovett MD Consults: 02/24/18 20:19 Consult to Transition Assistant [CONS] Routine Reason for SW Consult: discharge planning 02/25/18 07:54 Consult to Oncology Hematology [CONS] Routine Consulting Provider: [facility] Reason for Consult: possible DIC with supratheraputic INR and recent RLE DVT Call Completed: Yes 02/27/18 14:13 Consult to Occupational Therapy [CONS] Routine Comment: Evaluate, develop and implement POC Reason for Consult: evaluate for discharge needs Does patient have active BEDREST order?: No Is patient medically & hemodynamically stable?: Yes Patient assessed for mobility or mobilized this visit?: No Consult to Physical Therapy [CONS] Routine Comment: Evaluate, develop and implement POC Reason for Consult: evaluate for discharge needs Does patient have active BEDREST order?: No Is patient medically & hemodynamically stable?: Yes Patient assessed for mobility or mobilized this visit?: No - Constitutional Vitals: Temp Pulse Resp BP Pulse Ox 97.8 F 69 14 179/80 96 03/04/18 14:31 03/04/18 14:31 03/04/18 14:31 03/04/18 14:31 03/04/18 14:31 - Attending Attestation I examined this patient and my medical decision-making was reviewed with the Resident Physician Dr. Navarro. I agree with the documented findings, disposition and treatment plan as described except to the extent set forth below. Ms. Mercedes is a 72 year old female with known Sarcoidosis chronic steroid dependent, CKD-4, DVT on Coumadin, HTN and HLD who presented to the emergency department with chief complaint of nausea vomiting and diarrhea. Pt happened to have acute diffuse infectious collitis . Later pt developed severe sepsis, with worsening INR with concern of DIC, pt was transferred to ICU. She became E. Coli bacteremia mostly due to Colitis. She was started on broad spec abx Zosyn. Her symptoms started improving slowly. She is tolerating pO intake well. Still has 2 to 3 soft BM Gen: A, A< O x3 Chest: Diminished BS b/l, no crackles Heart: S1S2+ RRR No murmurs Abd: Soft Ext: mild tenderness in Rt leg a/p 1. Severe sepsis with Colitis 2. Acute E. coli bacteremia - mostly due to Colitis Cont PO Omnicef repeat blood cx no growth 2 weeks of Abx due to her immunocompromised state finished 2 days of stress dose steroids 3. Rt LE DVT - chronic INR therapeutic continue Coumadin 4. Sarcodosis resumed home dose of steroids medically stable to discharge to [facility] today
--- NOTE | 2018-03-04 11:53 | Physician Discharge Referral ---
[facility]Care Referral Info Transfer To: [facility] Provider in Charge after Transfer: PCP Institutional Level of Care: Skilled - Diagnosis (1) Severe sepsis Priority: Primary Status: Resolved (2) Colitis presumed infectious Priority: Secondary Status: Resolved (3) Sarcoidosis Priority: Secondary Status: Chronic (4) Acute renal failure superimposed on stage 4 chronic kidney disease Priority: Secondary Status: Resolved (5) Diabetes mellitus Priority: Secondary Status: Chronic (6) HTN (hypertension) Priority: Secondary Status: Chronic (7) Right leg pain Priority: Secondary Status: Chronic (8) Physical deconditioning Priority: Secondary Status: Acute Prognosis: Good Aware of Diagnosis: Patient Aware of Prognosis: Patient - Transfer Medications Prescriptions: Cefdinir [Omnicef] 300 mg PO DAILY 9 Days #9 capsule Home Medications: Atorvastatin [Lipitor] 40 mg PO HS #0 02/23/15 [History] Furosemide [Lasix] 20 mg PO DAILY #0 02/23/15 [History] Losartan Potassium [Cozaar] 100 mg PO DAILY #0 02/23/15 [History] Insulin ASPART [Novolog] 10 - 15 unit SQ TIDWM 01/15/16 [History] Warfarin [Coumadin] 3 mg PO HS 04/03/16 [History] EPINEPHrine [Epipen] 0.3 mg IM ONCE PRN #1 kit 05/03/17 [Rx] Insulin Glargine [Lantus] 36 unit SQ QAM 09/12/17 [History] Gabapentin [Neurontin] 100 mg PO HS 10/03/17 [History] Metoprolol XL (24 HR) Succ [Toprol Xl] 50 mg PO DAILY 10/03/17 [History] Pantoprazole Sodium [Protonix] 40 mg PO DAILY 10/03/17 [History] Insulin Glargine [Lantus] 14 unit SQ HS 02/24/18 [History] Pramipexole Di-HCl [Pramipexole Dihydrochloride] 0.125 mg PO HS 02/24/18 [ History] Tramadol HCl [Ultram] 50 - 100 mg PO BID PRN 02/24/18 [History] predniSONE [PredniSONE] 10 mg PO BIDWM 02/24/18 [History] Cefdinir [Omnicef] 300 mg PO DAILY 9 Days #9 capsule 03/04/18 [Rx] Allergies/Adverse Reactions: 3 Allergy/AdvReac Type Severity Reaction Status Date / Time niacin Allergy Mild Rash Verified 02/23/18 20:09 [From Niaspan Extended-Release] sertraline Allergy Mild Dizziness Verified 02/23/18 20:09 aspirin [ASA] Allergy See Verified 02/23/18 20:09 Comments infliximab [From Remicade] Allergy Rash Verified 02/23/18 20:09 NSAIDS (Non-Steroidal Allergy See Verified 02/23/18 20:09 Anti-Inflamma Comments - Respiratory Orders None Smoking Cessation: Smoking cessation has been advised. For more information, call the [place] Tobacco Quit Line at 4-075-IJIQ-NOW. - Advance Directives Code Status: Full Code - Mobility Orders Ambulate - Rehabiliation Orders Rehab Potential: Good Rehab Orders: Evaluation for Physical Therapy, Evaluation for Occupational Therapy - Diet Orders No Concentrated Sweets CERTIFICATION: I certify that the transfer of the above named patient to an Extended Care Facility is necessary for the continuing treatment of the diagnosis listed. The above information is true and accurate reflection of patient's current condition. Confidential - Redisclosure prohibited without a patient's written consent.
[2018-03-04 15:21] VITALS: BP 179/80
[2018-03-04] MEDS ORDERED: traMADol 50 MG TABLET PO ONE (17:28)
[2018-03-04] MEDS ORDERED: *HR* Warfarin 2 MG TABLET PO ONE (18:00)
== END 2018-03-04 19:25 | DRG 872 ==
LOC: EMEROOARM 13:53 → 2ANU 13:53 → SUATTDRO 17:50 → 2ANU 19:33 → 2NNU 02-25 00:51 → ICNU 02-25 09:18 → 3ANU 02-27 18:30
PROVIDERS: ADMIT Student in an Organized Health Care Education/Training Program; ATTEND Internal Medicine

== ENCOUNTER 2018-12-12 12:29 | Inpatient (IN) ==
[~2018-12-12 12:29] MED LIST: Ropivacaine/PF 0.5% 24.62 ML, EPINEPHrine 0.25 MG, Ketorolac 15 MG, Water for inj. (ste... IR ONE
[2018-12-12] MEDS ORDERED: Aminoglycoside Consult 1 EACH MC ONE (12:30)
--- NOTE | 2018-12-12 12:42 | History & Physical Report ---
Date of Encounter: 12/12/18 Time of Encounter: 12:41 24 Hour HP Update - Instructions Instructions: If the History and Physical is less than 30 days old and was completed prior to A.M. admission and or procedure and has NOT been updated on calendar day of procedure please complete this update prior to performing procedure. - Update Patient reports changes in Medical Condition: No Changes in examination, assessment, or condition: No Changes in Medication: No Preop tests/diagnostics Reviewed: Yes Surgery Remains Indicated: Yes Consent for Planned Operative Procedure(s) Verified: Yes - Pre-Operative Checklist Preoperative Checklist Indicated: No Prophylactic Antibiotic Ordered: Yes Is VTE Prophylaxis Indicated?: Yes
[2018-12-12] MEDS ORDERED: CeFAZolin Syr 2,000MG/20 ML 2,000 MG/20 ML SYRINGE IVPB ONE (13:02)
[2018-12-12] MEDS ORDERED: Ringers Solution, Lactated 1,000 ML IVC SCH ×2 (13:15→19:05)
--- NOTE | 2018-12-12 13:31 | Anesthesia Evaluation PreOp ---
Date of Encounter: 12/12/18 Time of Encounter: 13:29 - Past History Planned Operation: Total Right Knee Arthroplasty Cardiac History: CHF, HTN, Hyperlipidemia, Other (Hx DVT) Pulmonary History: Former smoker, OLGA Dx, Other (Sarcoidosis, very poor f unctional capacity due to dyspnea with exertion and orthopaedic issues) Other Medical History: Hepatic (Nonnecratizing granuloma), Renal (CRD), Diabetes Type II (uses insulin), GERD (Hiatal Hernia), Other (mediastinal lymphadenopathy, Anxiety) Anesthesia History: No Prior Anesthetic Complications, Past Anesthesia (R&L Knee, L- TSR, R-TKR,) : No Alcohol Use: none Drug use: none Medications and Allergies Adalimumab [Humira] 40 mg SQ QWEEK 12/12/18 [History] Enoxaparin [Lovenox] 80 mg SQ Q12HR 12/12/18 [History] Furosemide [Lasix] 20 mg PO DAILY 12/12/18 [History] Gabapentin [Neurontin] 300 mg PO TID 12/12/18 [History] Hydroxychloroquine [Plaquenuil] 200 mg PO BID 12/12/18 [History] Insulin ASPART [NovoLOG] 10 - 20 unit SQ TIDWM 12/12/18 [History] Insulin Glargine [Lantus] 14 unit SQ QPM 12/12/18 [History] Insulin Glargine [Lantus] 36 unit SQ QAM 12/12/18 [History] Losartan Potassium [Cozaar] 100 mg PO DAILY 12/12/18 [History] Metoprolol XL (24 HR) Succ [Toprol XL] 50 mg PO DAILY 12/12/18 [History] Pantoprazole Sodium [Protonix] 40 mg PO DAILY 12/12/18 [History] Ropinirole HCl [Requip] 0.25 mg PO HS 12/12/18 [History] Warfarin [Coumadin] 3 mg PO SUTUWETHSA 12/12/18 [History] Warfarin [Coumadin] 4.5 mg PO MOFR 12/12/18 [History] Allergy/AdvReac Type Severity Reaction Status Date / Time niacin Allergy Mild Rash Verified 12/12/18 13:39 [From Niaspan Extended-Release] sertraline Allergy Mild Dizziness Verified 12/12/18 13:39 aspirin [ASA] Allergy See Verified 12/12/18 13:39 Comments infliximab [From Remicade] Allergy Rash Verified 12/12/18 13:39 NSAIDS (Non-Steroidal Allergy See Verified 12/12/18 13:39 Anti-Inflamma Comments - Meds/Allergy Pre-op Review Medications Reviewed: Yes Allergies Reviewed: Yes Anesthesia Results - Labs 12/12/18 14:08 Laboratory Tests 12/06/18 12/10/18 12/10/18 10:54 13:33 13:33 WBC 10.1 Hgb 10.0 L Hct 31.8 L Plt Count 321 INR 3.0 Sodium 137 Potassium 5.1 Chloride 99 Carbon Dioxide 28 BUN 35 H Creatinine 2.51 H - Imaging Additional studies: Echocardiogram Name: Juliet Mercedes Date of Study: 02/25/2018 EV/EV echocardiogram Impressions: LVEF 60-65%. Normal LV chamber size, wall thickness and function. Mild left ventricular diastolic dysfunction. Normal right ventricular structure and function. Moderate aortic stenosis. Mean gradient 20 mmHg. Peak velocity 3.09 m/s. CRIS 1.29 cm2. Mild tricuspid regurgitation. Mild pulmonary hypertension. Estimated RVSP = 39 mmHg. Compared to last TTE in 2016, moderate aortic stenosis has developed. 12/06/18 Stress EF-70% No Ischemia Max Heart Rate 96 Anesthesia Exam O2 Sat Height 1.6 m Height 1.6 m Weight 77.474 kg Weight 77.474 kg O2 Sat by Pulse Oximetry 97 O2 Sat by Pulse Oximetry 97 Vital Signs Temp Pulse Resp BP Pulse Ox 98.5 F 93 18 135/72 97 12/12/18 12:56 12/12/18 12:56 12/12/18 12:56 12/12/18 12:56 12/12/18 12:56 NPO (# of Hours): > 8 hrs Pain Scale: 0 Pain Scale Used: Numeric (1 - 10) - HEENT Pupil (Motor): Pupils equal, EOMI Mallampati: III Teeth: Edentulous Oral Opening: Greater than 3 - INSPECTOR RAG SORTING LOC: Oriented INSPECTOR RAG SORTING Motor: Normal RUE, Normal LUE, Normal RLE, Normal LLE, Normal Face INSPECTOR RAG SORTING Sensory: Normal: RUE, LUE, RLE, LLE, Face - Cardiac Rhythm: Regular Murmur: None JVD: No Carotid Bruit: No - Pulmonary Breath Sounds: bilateral Clear Respiratory Effort: Symmetrical Anesthesia Assess/Plan ASA Score: 4 Anesthetic Plan: General, Regional Nerve Block Reason for No Neuroaxial/Regional Block: Patient on blood thinner (No spinal anesthetic) Autologous Blood: Yes Monitoring Plan: Standard Monitors Recovery Plan: PACU
[2018-12-12] MEDS ORDERED: *HR* Propofol 200 MG/20 ML VIAL IVP ONE (13:55)
[2018-12-12] MEDS ORDERED: *HR* FentaNYL (PF) 100 MCG/2 ML VIAL ONE (13:56)
[2018-12-12] MEDS ORDERED: *HR* Midazolam HCl 2 MG/2 ML VIAL ONE (13:56)
[2018-12-12] MEDS ORDERED: Ethanol\\Acetic Acid\\Na Ace\\Ben 1,000 ML IRRIG.SOLN IR ONE ×2 (14:23→16:17)
[2018-12-12 14:24] LABS: Hematocrit 28.1 % (35.3-44.9); Hemoglobin 8.8 g/dL (11.5-15.4)
[2018-12-12 14:28] LABS: INR 1.6; Prothrombin Time 18.7 Seconds (9.4-12.1)
[2018-12-12] MEDS ORDERED: Ropivacaine/PF 0.5% 30 ML VIAL ONE (14:39)
[2018-12-12] MEDS ORDERED: Acetaminophen IV 1,000 MG/100 ML INFUS..BTL ONE (14:48)
[2018-12-12] MEDS ORDERED: *HR* PHENYLEPHRINE 1,000 MCG/10 ML SYRINGE IVP ONE (15:20)
[2018-12-12] MEDS ORDERED: Tranexamic Acid 1,000 MG/10 ML VIAL ONE (15:23)
[2018-12-12] MEDS ORDERED: *HR* Phenylephrine 10 MG/ML VIAL ONE (15:44)
--- NOTE | 2018-12-12 15:58 | Anesthesia Procedures ---
Date of Encounter: 12/12/18 Time of Encounter: 14:50 Procedures: Anesthesia - Nerve Block Procedure Date: 12/12/18 Time: 14:50 Allergies/Adv Reactions: Allergies Allergy/AdvReac Type Severity Reaction Status Date / Time niacin Allergy Mild Rash Verified 12/12/18 13:39 [From Niaspan Extended-Release] sertraline Allergy Mild Dizziness Verified 12/12/18 13:39 aspirin [ASA] Allergy See Verified 12/12/18 13:39 Comments infliximab [From Remicade] Allergy Rash Verified 12/12/18 13:39 NSAIDS (Non-Steroidal Allergy See Verified 12/12/18 13:39 Anti-Inflamma Comments Pre-op Diagnosis: Right Total Knee Aseptic Loosening Surgical Procedure: Right Robotic Revision TKA Checklist: Correct Patient Identifier, Correct procedure, History checked Correct side: Right Blood Thinner: No Monitor Applied: EKG, BP, Pulse Oximetry Supplemental Oxygen via Nasal Cannula (L/min): 2 Sedation: Fentanyl (mcg): 100 Indication: Post Op Analgesia Pre-op Neuro Deficits: No Block Type: Other (Adductor Canal Block) Catheter placed: No Sterile Technique: Yes Ultrasound used: Yes Anatomy identified: Yes Visual spread of Local: Yes Neuro Stimulation: No Blood on Needle Aspiration: Yes (1st attempt Heme + Needle withdrawn & new needle ) Smooth Injection of Local: Yes Pain with Injection of Local: No Prep: Chlorhexadine Needle: 21 x 100 mm Stimuplex Local: Ropivacaine (0.5% with 8mg Decadron Given 20ml with good spread) Volume (cc): 20ml Number of Attempts: 2 Complications: None/effective block Vitals: Vital Signs/O2 Sat/Glucose, Most Recent Temp Pulse Resp BP Pulse Ox 98.5 F 89 14 177/94 98 12/12/18 13:08 12/12/18 14:59 12/12/18 14:59 12/12/18 14:59 12/12/18 14:59 Blood Glucose* 124
[2018-12-12] MEDS ORDERED: *HR* Succinylcholine 200 MG/10 ML VIAL IVP ONE (16:09)
[2018-12-12] MEDS ORDERED: Ondansetron 4 MG/2 ML VIAL ONE (16:09)
[2018-12-12] MEDS ORDERED: Lidocaine -MPF 2% 2 ML VIAL ONE (16:10)
[2018-12-12] MEDS ORDERED: Lidocaine -MPF 4% 5 ML AMPUL ONE (16:10)
[2018-12-12] MEDS ORDERED: *HR* HYDROMORPHONE 2 MG/ML VIAL ONE (16:43)
--- NOTE | 2018-12-12 16:56 | Orthopedic Operative Note ---
Date of procedure: 12/12/18 Pre-op diagnosis: Painful stiff right total knee Post-op diagnosis: same Procedure: Procedure: Right revision robotic-assisted Total knee replacement Estimated blood loss: 500 cc Hardware: Metal and polyethylene replacement. Kaylah Femur: 3 TS, 12 x 100 stem Tibia: 2, 11 x 100 stem TS insert: 9 Exam Under anesthesia: Patient had significant swelling no erythema significantly stiff flexion contracture 24 and varus of 2 as calculated by the robot full flexion and no instability Procedural Notes: Patient with extensive synovitis Gram stain positive for white cells no bacteria components well fixed Operative procedure: The patient was brought to the operating room and placed on the operating room table. After general anesthesia was administered the operative knee was examined. Findings were noted in the exam under anesthesia. The operative extremity was prepped and draped in sterile surgical fashion. The patient received IV antibiotics prior to skin incision. A standard midline incision was made centered over the patella. The incision was made through the old incision, through the skin and subcutaneous tissue. A medial parapatellar tendon approach was performed. Care was taken to preserve tissue along the medial aspect of the patella. And to protect the patella tendon. Normal serosanguineous fluid was encountered it was sent for Gram stain and culture, Gram stain was positive for blood cells negative for bacteria. An extensive synovectomy was performed, patient had hypertrophic synovium, she does have a history of rheumatoid disease. A portion of the synovium was sent as specimen. The deep MCL was released off the medial tibia. The infra patella fat pad was excised. The patella was everted patella was without abnormality. Knee was brought into flexion. Steinmann pins were placed in the tibia and the femur for the tibial and femoral arrays respectively. Checkpoints were also placed in the tibia and the femur for calculation purposes. The knee including the femur and the tibial registered. Extension and flexion were assessed with a valgus stress components were adjusted on the computer to balance the knee. The components were removed carefully utilizing an osteotome and oscillating saw without any significant bone loss. Femoral cuts were made first with robotic assistance, these included the anterior cut posterior cuts chamfer cuts. Tibial cut was then performed with robotic assistance as well. Bone fragments were removed. The size 3 femoral guide was seated box cut was made lug holes are drilled. The size 2 tibial tray was seated and prepared with the fin cutter. Trial reduction with the 9 TS Jen revealed extension of 0 degree and 5 degrees varus full flexion. No varus valgus instability. Trial reduction revealed excellent patella tracking. All trial components were removed all bony surfaces were irrigated. The femur was reamed up to a 12 x 100, the tibia was reamed to an 11 x 100. Components were assembled on the back table, the knee was irrigated with 2 L of an antibacterial solution of pulse irrigation. The components were then cemented. The Tibia was seated followed by the femur, The selected Jen size was seated and secured. Patient had similar findings for motion and stability. The knee was then irrigated out with 2 L of pulse irrigation. The extensor mechanism was closed with #2 PDS suture. The subcutaneous tissue was then irrigated and closed deep with #1 PDS suture superficially with 0 PDS suture and skin was closed with zip tie The patient was then placed in a sterile dressing and a postoperative brace extubated and transferred to recovery room in stable condition. Anesthesia: GETA Surgeon: Parish Harris Was there an operations manager assistant present: No Estimated blood loss (cc): 500 Condition: stable Disposition: PACU
[2018-12-12] MEDS ORDERED: *HR* OxyCODONE Immed Rel 5 MG TABLET PO PRN (17:11)
[2018-12-12] MEDS ORDERED: Ondansetron 4 MG/2 ML VIAL IVP ONE (17:11)
[2018-12-12] MEDS: *HR* HYDROmorphone (PF) 1 MG/ML SYRINGE IVP PRN ×2 (17:22→17:27)
[2018-12-12] MEDS ORDERED: Calcium Gluconate 2,000 MG in 0.9 % Sodium Chloride 100 ML IVPB STA (17:50)
[2018-12-12] MEDS ORDERED: *HR* Enoxaparin 30 MG/0.3 ML SYRINGE SQ SCH (18:00)
[2018-12-12 19:05] LABS: Hematocrit 25.1 % (35.3-44.9); Hemoglobin 8.1 g/dL (11.5-15.4)
[2018-12-12] MEDS ORDERED: Sennosides 8.6 MG TABLET PO PRN (19:05)
[2018-12-12] MEDS ORDERED: traMADol 50 MG TABLET PO PRN (19:05)
[2018-12-12] MEDS ORDERED: MOM Conc 10 ML UD.LIQ PO PRN (19:05)
[2018-12-12] MEDS ORDERED: *HR* Dextrose 50 % in Water (Syg) 50 ML SYRINGE IVP PRN (19:05)
[2018-12-12] MEDS ORDERED: Temazepam 15 MG CAPSULE PO PRN (19:05)
[2018-12-12] MEDS ORDERED: *HR* Promethazine 25 MG/ML VIAL IVP PRN (19:05)
[2018-12-12] MEDS ORDERED: Ondansetron 4 MG/2 ML VIAL IVP PRN (19:05)
[2018-12-12] MEDS ORDERED: Naloxone 0.4 MG/ML INJ IVP PRN (19:05)
[2018-12-12] MEDS ORDERED: Dextrose Gel 15 GM/37.5 ML TUBE PO PRN ×2 (19:05)
[2018-12-12] MEDS ORDERED: D5% in Water 1,000 ML IVC PRN (19:05)
[2018-12-12] MEDS: Gabapentin 300 MG CAPSULE PO SCH ×2 (22:00→22:18)
[2018-12-12] MEDS ORDERED: *HR* Warfarin 3 MG TABLET PO SCH (22:00)
[2018-12-12] MEDS: Ascorbic Acid 500 MG TABLET PO SCH (22:18)
[2018-12-12] MEDS: Insulin LISPRO 300 UNITS/3 ML VIAL SQ SCH (23:16)
[2018-12-12] MEDS: Insulin DETEMIR 100 UNIT/ML X5UNITS SQ SCH (23:23)
--- NOTE | 2018-12-13 02:12 | Anesthesia Evaluation Post Op ---
Date of Encounter: 12/13/18 Time of Encounter: 18:46 - Discharge PostOp Status: Transfer Patient to floor (Patient's vital signs have been reviewed. Patient is stable postoperatively and has adequately recovered from anesthesia. Patient is determined to have stable airway patency and respiratory function including respiratory rate and oxygen saturation. Patient has a stable heart rate, blood pressure and adequate hydration. Patients mental status is acceptable. Patients temperature is appropriate. Pain and nausea are adequately controlled.)
[2018-12-13] MEDS ORDERED: Vancomycin 1,000 MG VIAL IVPB SCH (03:00)
[2018-12-13] MEDS ORDERED: 0.9 % Sodium Chloride 250 ML ONE (03:06)
[2018-12-13] MEDS ORDERED: *HR* Enoxaparin 30 MG/0.3 ML SYRINGE SQ SCH (06:00)
--- NOTE | 2018-12-13 06:38 | Orthopedics Progress Note ---
Date of Encounter: 12/13/18 Time of Encounter: 06:37 Subjective Interval history: Patient was seen this morning doing well without complaints. Afebrile vital signs stable. Operative extremity: Neurovascularly intact Dressing clean dry and intact Calves nontender Assessment and plan: Continue with postoperative care Patient receiving blood for acute blood loss anemia, continue antibiotics until cultures results, continued JPs until output is less than 30 Objective Vital signs: Vital Signs Temp Pulse Resp BP Pulse Ox 12/13/18 03:42 98.0 F 66 14 85/55 94 12/13/18 03:27 97.9 F 68 14 91/64 95 12/12/18 23:45 98.0 F 72 15 92/61 95 12/12/18 22:30 76 14 94/56 98 12/12/18 21:36 97 12/12/18 21:29 78 14 88/58 96 12/12/18 21:00 81 14 83/49 96 12/12/18 20:29 81 14 97/48 100 12/12/18 20:02 84 14 91/59 96 12/12/18 19:14 98.3 F 89 14 114/74 97 12/12/18 19:05 98.5 F 95 14 104/52 97 12/12/18 18:55 93 14 104/49 98 12/12/18 18:45 96 14 100/65 98 12/12/18 18:35 98.2 F 96 14 98/54 97 12/12/18 18:25 96 14 86/57 98 12/12/18 18:15 96 14 96/50 97 12/12/18 18:05 99.4 F 98 12 87/49 97 12/12/18 17:55 101 18 83/44 97 12/12/18 17:45 103 20 83/61 95 12/12/18 17:35 99 F 107 20 98/58 97 12/12/18 17:25 105 20 98/62 98 12/12/18 17:15 108 20 104/68 98 12/12/18 17:05 98.9 F 100 22 136/65 98 12/12/18 14:59 89 14 177/94 98 12/12/18 13:08 98.5 F 93 18 135/72 97 12/12/18 12:56 98.5 F 93 18 135/72 97 Intake and Output 12/12/18 12/12/18 12/13/18 15:59 23:59 07:59 Intake Total 250 / 270 0 / 0 Output Total 575 / 575 Balance 20 / -305 -325 / -305 -30 Intake: IV Fluids 250 / 270 ALBURX 5% 12.5 gm In 250 ml @ 250 / 250 60 mls/hr IVPB ONCE ONE Rx#: [id number] Ancef Syringe 2,000 MG/20 ML 2, 20 / 20 000 mg In 20 ml @ 200 mls/hr IVPB PREOP ONE Rx#:[id number] Blood Product 0 / 0 Rbcs Leuko Poor As-1 Unit 0 / 0 [id number] Output: Estimated Blood Loss 500 / 500 Wound Drainage 75 / 75 Right Knee 40 / Other: # Voids 1 Weight 77.474 kg 77.4 kg Blood Glucose* 124 213 - Labs CBC & BMP: 12/12/18 18:50 Labs: Abnormal lab results Hgb 8.1 g/dL (11.5-15.4) L 12/12/18 18:50 Hct 25.1 % (35.3-44.9) L 12/12/18 18:50 PT 18.7 Seconds (9.4-12.1) H 12/12/18 14:08 POC Glucose 213 mg/dL (70-99) H 12/12/18 21:18 Crossmatch See Detail 12/12/18 15:08 Consult Discharge Plan - Plan Referrals: Conchita Lovett MD [Primary Care Provider] - Prescriptions: OxyCODONE Immed Rel [Roxicodone 5 MG] 5 mg PO Q6HR PRN 5 Days #20 tablet PRN Reason: Pain
[2018-12-13 08:11] LABS: Basophils % 0.3 %; Hematocrit 26.4 % (35.3-44.9); Hemoglobin 8.6 g/dL (11.5-15.4); Immature Granulocytes % 1.1 % (0-4); Lymphocytes # 0.8 K/mcL (0.6-4.6); Lymphocytes % 7.1 %; Mean Corpuscular HGB Conc 32.6 g/dL (31.6-35.5); Mean Corpuscular Hemoglobin 28.1 pg (28.0-33.3); Mean Corpuscular Volume 86.3 fL (83.0-100.0); Mean Platelet Volume 9.8 fL (9.4-12.4); Monocytes # 1.1 K/mcL (0.0-1.3); Monocytes % 9.9 %; Neutrophils # 8.7 K/mcL (1.6-8.9); Platelet Count 180 K/mcL (140-400); Red Blood Count 3.06 M/mcL (3.82-4.97); Red Cell Distribution Width 15.1 % (11.5-14.5); Segmented Neutrophils % 81.6 %; White Blood Count 10.6 K/mcL (4.3-11.1)
[2018-12-13] MEDS: Furosemide 20 MG TABLET PO SCH (08:17)
[2018-12-13] MEDS: Multivit/Ca/Min/Fe/FA 1 TAB TABLET PO SCH (08:17)
[2018-12-13] MEDS: HYDROcodone BIT/Homatropine 5 MG TABLET PO PRN (08:17)
[2018-12-13] MEDS: Ascorbic Acid 500 MG TABLET PO SCH ×2 (08:18→16:32)
[2018-12-13] MEDS: Gabapentin 300 MG CAPSULE PO SCH ×3 (08:19→20:48)
[2018-12-13] MEDS: Insulin DETEMIR 100 UNIT/ML X5UNITS SQ SCH ×2 (08:19→16:32)
[2018-12-13] MEDS: Insulin LISPRO 300 UNITS/3 ML VIAL SQ SCH ×3 (08:20→16:29)
[2018-12-13 08:22] LABS: Calcium 9.3 mg/dL (8.6-10.3); Potassium 5.4 mEq/L (3.5-5.1)
[2018-12-13] MEDS: *HR* OxyCODONE Immed Rel 5 MG TABLET PO PRN ×3 (12:02→20:48)
[2018-12-13] MEDS: Ringers Solution, Lactated 1,000 ML IVC SCH (13:33)
[2018-12-13 13:35] LABS: Prothrombin Time 22.7 Seconds (9.4-12.1)
[2018-12-13] MEDS ORDERED: Warfarin perPT PO PRN (18:00)
[2018-12-13] MEDS ORDERED: *HR* Warfarin 3 MG TABLET PO SCH (18:00)
[2018-12-13] MEDS ORDERED: *HR* Warfarin 2.5 MG TABLET PO ONE (18:00)
--- NOTE | 2018-12-13 18:00 | Event Note ---
Date of Encounter: 12/13/18 Time of Encounter: 11:20 PCR - POD#1 s/p Right TKR revision 12/12/18 Patient seen at bedside, without complaints other than tired. A&O x 3 Afebrile, vital signs stable. dressing c/d/i. no calf tenderness to palpation. good dorsiflexion of foot sensation intact distally. hinged knee brace locked in extension Labs reviewed. H/H - 8.6/26.4 - received 1 of 2 units RBC transfusion so far Awaiting intraoperative cx - continue abx until final results SANTY drain intact - 75ml drained on 12/12, 80ml drained today so far. Per Dr. Harris - leave SANTY drain until drainage <30ml Pain control: adequate Participating in PT. NO KNEE FLEXION, WBAT All questions and concerns addressed. Educated on use of incentive spirometer. Encouraged ambulation and proper hydration. Patient educated on post-operative restrictions and post-operative care. Assessment and plan: Continue with postoperative care Discharge plan: ECF possibly Sunday
--- NOTE | 2018-12-13 18:09 | Physician Discharge Referral ---
<Manasa Jose - Last Filed: 12/13/18 18:06> ExtendedCare Referral Info Transfer To: [facility] Provider in Charge: Dr. Harris - Diagnosis (1) Status post revision of total replacement of right knee Priority: Primary Status: Acute (2) Loosening of prosthesis of right total knee replacement Priority: Primary Status: Chronic (3) Osteoporosis Priority: Secondary Status: Chronic (4) Aortic stenosis Priority: Secondary Status: Chronic (5) DMII (diabetes mellitus, type 2) Priority: Secondary Status: Chronic (6) DVT (deep venous thrombosis) Priority: Secondary Status: Chronic (7) On warfarin therapy Priority: Secondary Status: Chronic (8) Anemia Priority: Secondary Status: Chronic (9) CKD (chronic kidney disease), stage IV Priority: Secondary Status: Chronic (10) HTN (hypertension) Priority: Secondary Status: Chronic (11) Restless leg syndrome Priority: Secondary Status: Chronic (12) Sarcoidosis Priority: Secondary Status: Chronic Expected Duration of Placement: <30 days Prognosis: Good Aware of Diagnosis: Patient Aware of Prognosis: Patient - Transfer Medications Prescriptions: OxyCODONE Immed Rel [Roxicodone 5 MG] 5 mg PO Q6HR PRN 5 Days #20 tablet PRN Reason: Pain Home Medications: Enoxaparin [Lovenox] 80 mg SQ Q12HR 12/12/18 [History] Furosemide [Lasix] 20 mg PO DAILY 12/12/18 [History] Gabapentin [Neurontin] 300 mg PO TID 12/12/18 [History] Hydroxychloroquine [Plaquenuil] 200 mg PO BID 12/12/18 [History] Insulin ASPART [NovoLOG] 10 - 20 unit SQ TIDWM 12/12/18 [History] Insulin Glargine [Lantus] 14 unit SQ QPM 12/12/18 [History] Insulin Glargine [Lantus] 36 unit SQ QAM 12/12/18 [History] Losartan Potassium [Cozaar] 100 mg PO DAILY 12/12/18 [History] Metoprolol XL (24 HR) Succ [Toprol Xl] 50 mg PO DAILY 12/12/18 [History] OxyCODONE Immed Rel [Roxicodone 5 MG] 5 mg PO Q6HR PRN 5 Days #20 tablet 12/12/18 [Rx] Pantoprazole Sodium [Protonix] 40 mg PO DAILY 12/12/18 [History] Ropinirole HCl [Requip] 0.25 mg PO HS 12/12/18 [History] Warfarin [Coumadin] 3 mg PO SUTUWETHSA 12/12/18 [History] Warfarin [Coumadin] 4.5 mg PO MOFR 12/12/18 [History] Adalimumab [Humira] 40 mg SQ QWEEK #0 12/16/18 [Rx] Ascorbic Acid [Vitamin C] 500 mg PO BIDWM tablet 12/16/18 [Rx] Docusate [Colace] 100 mg PO BID capsule 12/16/18 [Rx] Ferrous Sulfate 325 mg PO BIDWM tablet 12/16/18 [Rx] Multivit/Ca/Min/Fe/FA [Thera M Plus] 1 tab PO DAILY tablet 12/16/18 [Rx] Allergies/Adverse Reactions: Allergy/AdvReac Type Severity Reaction Status Date / Time niacin Allergy Mild Rash Verified 12/12/18 13:39 [From Niaspan Extended-Release] sertraline Allergy Mild Dizziness Verified 12/12/18 13:39 aspirin [ASA] Allergy See Verified 12/12/18 13:39 Comments infliximab [From Remicade] Allergy Rash Verified 12/12/18 13:39 NSAIDS (Non-Steroidal Allergy See Verified 12/12/18 13:39 Anti-Inflamma Comments - Respiratory Orders Smoking Cessation: Smoking cessation has been advised. For more information, call the [place] Tobacco Quit Line at 9-895-UDIE-NOW. - Ancillary Orders May use pressure relief devices daily prn, May go on ANTONIO w/family/respon green party w/meds at nurse discretion PRN, May consult with Dentist, Deli Worker, Process Specialist PRN - Advance Directives Code Status: Full Code - Mobility Orders Chair, Ambulate - Rehabiliation Orders Rehab Potential: Good Rehab Orders: ROM Exercises, Evaluation for Physical Therapy, Evaluation for Occupational Therapy Other: Opsite dressing, leave intact until first post-operative visit. If dressing becomes >50% saturated, contact office, remove dressing and place appropriate dressing in its place. Do not allow for dressing to get wet. Zipline/Adela in place, plan to remove at post-operative day #14-16. Total Joint Precautions x 6 weeks Apply cold therapy wrap 3-6x/day for 20 minutes at a time. Encourage ambulation throughout the day Use Incentive spirometer 10x/hour. Elevate affected extremity above heart as tolerated. Brace: in hinged knee brace LOCKED IN EXTENSION. NO KNEE FLEXION - Diet Orders Regular CERTIFICATION: I certify that the transfer of the above named patient to an Extended Care Facility is necessary for the continuing treatment of the diagnosis listed. The above information is true and accurate reflection of patient's current condition. Confidential - Redisclosure prohibited without a patient's written consent. <Manasa Rangel E - Last Filed: 12/16/18 12:18> - Diagnosis (1) Pain in right knee Priority: Primary Status: Chronic (2) Stiffness of right knee Priority: Primary Status: Chronic (3) Status post revision of total replacement of right knee Priority: Primary Status: Acute (4) Acute kidney injury superimposed on CKD Priority: Secondary Status: Resolved (5) Renal insufficiency Priority: Secondary Status: Chronic (6) Anticoagulant long-term use Priority: Secondary Status: Chronic (7) DMII (diabetes mellitus, type 2) Priority: Secondary Status: Chronic (8) HTN (hypertension) Priority: Secondary Status: Chronic (9) History of DVT (deep vein thrombosis) Priority: Secondary Status: Chronic (10) Sarcoidosis Priority: Secondary Status: Chronic Expected Duration of Placement: <30 days Prognosis: Good Aware of Diagnosis: Patient Aware of Prognosis: Patient - Respiratory Orders Smoking Cessation: Smoking cessation has been advised. For more information, call the [place] Tobacco Quit Line at 1-459-FNOX-NOW. - Lab Orders Lab Orders: Other (include drug levels w/frequency) (PT/INR - CONTINUE TO MONITOR AT LEAST EVERY 48 HOURS UNTIL INR REACHES THERAPEUTIC RANGE 2-3) - Ancillary Orders May use pressure relief devices daily prn, May go on ANTONIO w/family/respon green party w/meds at nurse discretion PRN, May consult with Dentist, Deli Worker, Process Specialist PRN - Advance Directives Code Status: Full Code - Mobility Orders Chair, Ambulate - Rehabiliation Orders Rehab Potential: Good Rehab Orders: ROM Exercises, Evaluation for Physical Therapy, Evaluation for Occupational Therapy Other: CORRECTION: TROM BRACE AT ALL TIMES WITH WHEELS TO EITHER SIDE OF KNEE: LOCKED WITH AMBULATION AND AT REST, BUT OKAY TO UNLOCK FOR THERAPY. WBAT OTHERWISE STATED ABOVE - Treatments Skin tear care topically daily PRN per policy - Diet Orders Regular (PATIENT IS DIABETIC) CERTIFICATION: I certify that the transfer of the above named patient to an Extended Care Facility is necessary for the continuing treatment of the diagnosis listed. The above information is true and accurate reflection of patient's current condition. Confidential - Redisclosure prohibited without a patient's written consent.
[2018-12-14] MEDS: *HR* OxyCODONE Immed Rel 5 MG TABLET PO PRN ×4 (01:59→20:17)
[2018-12-14 05:07] LABS: INR 1.9; Prothrombin Time 21.1 Seconds (9.4-12.1)
[2018-12-14 05:17] LABS: Calcium 9.1 mg/dL (8.6-10.3); Potassium 4.2 mEq/L (3.5-5.1)
[2018-12-14 05:24] LABS: Basophils % 0.3 %; Eosinophils # 0.1 K/mcL (0.0-0.6); Eosinophils % 0.9 %; Hematocrit 23.9 % (35.3-44.9); Hemoglobin 7.9 g/dL (11.5-15.4); Immature Granulocytes % 1.1 % (0-4); Immature Platelets 1.6 % (1.1-6.1); Lymphocytes # 1.3 K/mcL (0.6-4.6); Lymphocytes % 13.5 %; Mean Corpuscular HGB Conc 33.1 g/dL (31.6-35.5); Mean Corpuscular Hemoglobin 28.6 pg (28.0-33.3); Mean Corpuscular Volume 86.6 fL (83.0-100.0); Mean Platelet Volume 10.3 fL (9.4-12.4); Monocytes # 1.1 K/mcL (0.0-1.3); Neutrophils # 7.1 K/mcL (1.6-8.9); Platelet Count 202 K/mcL (140-400); Red Blood Count 2.76 M/mcL (3.82-4.97); Red Cell Distribution Width 15.9 % (11.5-14.5); Segmented Neutrophils % 73.2 %; White Blood Count 9.7 K/mcL (4.3-11.1)
[2018-12-14] MEDS: Insulin LISPRO 300 UNITS/3 ML VIAL SQ SCH ×3 (08:30→16:34)
[2018-12-14] MEDS: Gabapentin 300 MG CAPSULE PO SCH ×3 (08:30→20:17)
[2018-12-14] MEDS: Multivit/Ca/Min/Fe/FA 1 TAB TABLET PO SCH (08:31)
[2018-12-14] MEDS: Ascorbic Acid 500 MG TABLET PO SCH ×2 (08:31→18:13)
[2018-12-14] MEDS: Furosemide 20 MG TABLET PO SCH (08:31)
[2018-12-14] MEDS: Insulin DETEMIR 100 UNIT/ML X5UNITS SQ SCH ×2 (08:33→20:17)
[2018-12-14] MEDS: Ringers Solution, Lactated 1,000 ML IVC SCH (08:42)
--- NOTE | 2018-12-14 16:57 | Orthopedics Progress Note ---
Date of Encounter: 12/14/18 Time of Encounter: 16:55 Subjective Principal diagnosis: Right total knee arthroplasty revision Interval history: Patient comfortable without complaints Right lower extremity: Knee immobilizer in place, dressings are clean dry intact. SANTY drain in place with serosanguineous fluid. Bilateral calves are soft and nontender, grossly neurovascularly intact distally. SANTY drain output 55 mL Assessment: Postoperative day #2 status post revision right total knee arthroplasty Plan: Continue DVT prophylaxis Continue OT/PT We will monitor SANTY drain output Continue IV antibiotics until cultures are back - cultures are negative to date Objective Vital signs: Vital Signs Temp Pulse Resp BP Pulse Ox 12/14/18 16:28 98.3 F 83 16 114/71 93 12/14/18 12:00 98.2 F 78 16 118/73 95 12/14/18 08:32 98.1 F 78 16 124/76 94 12/14/18 02:19 98.7 F 79 16 116/68 95 12/13/18 22:04 98.9 F 86 16 125/68 94 12/13/18 19:03 98.6 F 83 16 105/65 96 Intake and Output 12/14/18 12/14/18 12/14/18 07:59 15:59 23:59 Intake Total 100 / 1460 1360 / 1460 Output Total Balance 80 / 1440 1360 / 1440 Intake: IV Fluids 1000 / 1000 Lactated Ringers 1,000 ML @ 50 1000 / 1000 mls/hr IVC .Q20H CAROL Rx#: [id number] Oral 100 / 460 360 / 460 Output: Urine 0 / 0 Wound Drainage Right Knee Other: Meal Breakfast Percent of Meal Consumed 70% # Voids 1 1 1 Weight 77.3 kg Blood Glucose* 157 115 Patient Weight 12/14/18 23:59 Weight 77.3 kg - Labs CBC & BMP: 12/14/18 03:42 12/14/18 03:42 Labs: Abnormal lab results RBC 2.76 M/mcL (3.82-4.97) L 12/14/18 03:42 Hgb 7.9 g/dL (11.5-15.4) L 12/14/18 03:42 Hct 23.9 % (35.3-44.9) L 12/14/18 03:42 RDW 15.9 % (11.5-14.5) H 12/14/18 03:42 PT 21.1 Seconds (9.4-12.1) H 12/14/18 03:42 Sodium 135 mEq/L (136-145) L 12/14/18 03:42 Potassium 5.4 mEq/L (3.5-5.1) H 12/13/18 07:52 Carbon Dioxide 21 mEq/L (23-29) L 12/14/18 03:42 BUN 50 mg/dL (8-23) H 12/14/18 03:42 2.60 mg/dL (0.60-1.20) H 12/14/18 03:42 Est GFR ( Amer) 22 (> 60) L 12/14/18 03:42 Est GFR (Non-Af Amer) 18 (> 60) L 12/14/18 03:42 Glucose 155 mg/dL (70-105) H 12/13/18 07:52 POC Glucose 63 mg/dL (70-99) L 12/14/18 08:15 Vancomycin Trough 24 mcg/mL (5-10) H 12/14/18 03:42 Crossmatch See Detail 12/12/18 15:08 Consult Discharge Plan - Plan Referrals: Conchita Lovett MD [Primary Care Provider] - Prescriptions: OxyCODONE Immed Rel [Roxicodone 5 MG] 5 mg PO Q6HR PRN 5 Days #20 tablet PRN Reason: Pain
[2018-12-14] MEDS ORDERED: *HR* Warfarin 3 MG TABLET PO ONE (18:00)
[2018-12-15] MEDS: *HR* OxyCODONE Immed Rel 5 MG TABLET PO PRN ×4 (04:42→20:32)
[2018-12-15] MEDS: Ringers Solution, Lactated 1,000 ML IVC SCH (06:06)
[2018-12-15 07:59] LABS: Basophils % 0.3 %; Eosinophils # 0.2 K/mcL (0.0-0.6); Eosinophils % 3.2 %; Hematocrit 25.5 % (35.3-44.9); Immature Granulocytes % 1.1 % (0-4); Lymphocytes # 1.4 K/mcL (0.6-4.6); Lymphocytes % 18.6 %; Mean Corpuscular HGB Conc 31.4 g/dL (31.6-35.5); Mean Corpuscular Hemoglobin 28.2 pg (28.0-33.3); Mean Corpuscular Volume 89.8 fL (83.0-100.0); Monocytes # 0.9 K/mcL (0.0-1.3); Monocytes % 11.4 %; Platelet Count 191 K/mcL (140-400); Red Blood Count 2.84 M/mcL (3.82-4.97); Red Cell Distribution Width 15.9 % (11.5-14.5); Segmented Neutrophils % 65.4 %; White Blood Count 7.6 K/mcL (4.3-11.1)
[2018-12-15 08:05] LABS: INR 1.8; Prothrombin Time 20.3 Seconds (9.4-12.1)
[2018-12-15] MEDS: Insulin LISPRO 300 UNITS/3 ML VIAL SQ SCH ×3 (08:47→15:58)
[2018-12-15] MEDS: Insulin DETEMIR 100 UNIT/ML X5UNITS SQ SCH ×2 (09:04→20:40)
[2018-12-15] MEDS: Ascorbic Acid 500 MG TABLET PO SCH ×2 (09:04→16:21)
[2018-12-15] MEDS: Furosemide 20 MG TABLET PO SCH (09:04)
[2018-12-15] MEDS: Gabapentin 300 MG CAPSULE PO SCH ×3 (09:04→20:26)
[2018-12-15] MEDS: Multivit/Ca/Min/Fe/FA 1 TAB TABLET PO SCH (09:04)
--- NOTE | 2018-12-15 15:10 | Orthopedics Progress Note ---
Date of Encounter: 12/15/18 Time of Encounter: 15:08 Subjective Principal diagnosis: Right total knee arthroplasty revision Interval history: Patient comfortable without complaints Right lower extremity: Knee immobilizer in place, dressings are clean dry intact. SANTY drain in place with minimal serosanguineous fluid. Bilateral calves are soft and nontender, grossly neurovascularly intact distally. SANTY drain output 35 mL - overnight Assessment: Postoperative day #3 status post revision right total knee arthroplasty Plan: Continue DVT prophylaxis Continue OT/PT Continue knee immobilizer We will pull SANTY drain Continue IV antibiotics until cultures are back - cultures are still negative to date Discharge planning for tomorrow Objective Vital signs: Vital Signs Temp Pulse Resp BP Pulse Ox 12/15/18 11:17 99.1 F 77 16 106/67 95 12/15/18 09:00 97 12/15/18 08:58 78 119/74 12/15/18 06:43 98.6 F 73 16 93/61 97 12/15/18 02:20 98.1 F 78 18 108/71 99 12/14/18 22:33 98.2 F 83 18 121/74 96 12/14/18 19:16 98.8 F 84 18 110/66 95 12/14/18 16:28 98.3 F 83 16 114/71 93 Intake and Output 12/14/18 12/15/18 12/15/18 23:59 07:59 15:59 Intake Total 0 / 1460 1200 / 1440 240 / 1440 Output Total Balance -20 / 1420 1185 / 1415 230 / 1415 Intake: IV Fluids 1000 / 1000 Lactated Ringers 1,000 ML @ 50 1000 / 1000 mls/hr IVC .Q20H [facility] Rx#: [id number] Oral 0 / 460 200 / 440 240 / 440 Output: Urine 0 / 0 0 / 0 Wound Drainage Right Knee Other: Meal Breakfast Percent of Meal Consumed 100% # Voids 1 1 1 Weight 77.3 kg Blood Glucose* 198 116 122 Patient Weight 12/15/18 23:59 Weight 77.3 kg - Labs CBC & BMP: 12/15/18 06:38 12/14/18 03:42 Labs: Abnormal lab results RBC 2.84 M/mcL (3.82-4.97) L 12/15/18 06:38 Hgb 8.0 g/dL (11.5-15.4) L 12/15/18 06:38 Hct 25.5 % (35.3-44.9) L 12/15/18 06:38 MCHC 31.4 g/dL (31.6-35.5) L 12/15/18 06:38 RDW 15.9 % (11.5-14.5) H 12/15/18 06:38 PT 20.3 Seconds (9.4-12.1) H 12/15/18 06:38 Sodium 135 mEq/L (136-145) L 12/14/18 03:42 Potassium 5.4 mEq/L (3.5-5.1) H 12/13/18 07:52 Carbon Dioxide 21 mEq/L (23-29) L 12/14/18 03:42 BUN 50 mg/dL (8-23) H 12/14/18 03:42 2.60 mg/dL (0.60-1.20) H 12/14/18 03:42 Est GFR ( Amer) 22 (> 60) L 12/14/18 03:42 Est GFR (Non-Af Amer) 18 (> 60) L 12/14/18 03:42 Glucose 155 mg/dL (70-105) H 12/13/18 07:52 POC Glucose 122 mg/dL (70-99) H 12/15/18 11:14 Vancomycin Trough 17 mcg/mL (5-10) H 12/15/18 06:38 Crossmatch See Detail 12/12/18 15:08 Consult Discharge Plan - Plan Referrals: Conchita Lovett MD [Primary Care Provider] - Prescriptions: OxyCODONE Immed Rel [Roxicodone 5 MG] 5 mg PO Q6HR PRN 5 Days #20 tablet PRN Reason: Pain
[2018-12-15] MEDS ORDERED: *HR* Warfarin 4 MG TABLET PO ONE (18:00)
[2018-12-15] MEDS: HYDROcodone BIT/Homatropine 5 MG TABLET PO PRN (18:47)
[2018-12-16] MEDS: Ringers Solution, Lactated 1,000 ML IVC SCH (02:27)
[2018-12-16] MEDS: *HR* OxyCODONE Immed Rel 5 MG TABLET PO PRN ×3 (02:32→16:05)
[2018-12-16] MEDS ORDERED: Vancomycin 500 MG in 0.9 % Sodium Chloride Mini Bag 100 ML IVPB ONE (06:00)
--- NOTE | 2018-12-16 06:43 | Orthopedics Progress Note ---
Date of Encounter: 12/16/18 Time of Encounter: 06:42 Subjective Principal diagnosis: Right total knee arthroplasty revision Interval history: Patient was seen this morning doing well without complaints. Afebrile vital signs stable. Operative extremity: Neurovascularly intact Dressing clean dry and intact Calves nontender Assessment and plan: Continue with postoperative care cultures negative plan for dc today [id number] Objective Vital signs: Vital Signs Temp Pulse Resp BP Pulse Ox 12/16/18 06:30 98.6 F 81 16 104/70 96 12/16/18 04:09 98.4 F 81 16 105/69 98 12/15/18 23:05 98.6 F 80 16 102/66 98 12/15/18 18:53 98.7 F 87 17 115/61 98 12/15/18 15:21 98.9 F 87 16 110/73 96 12/15/18 11:17 99.1 F 77 16 106/67 95 12/15/18 09:00 97 12/15/18 08:58 78 119/74 12/15/18 06:43 98.6 F 73 16 93/61 97 Intake and Output 12/15/18 12/15/18 12/16/18 15:59 23:59 07:59 Intake Total 240 / 1690 250 / 1690 1050 / 1050 Output Total 10 / 225 200 / 225 Balance 230 / 1465 50 / 1465 1050 / 1050 Intake: IV Fluids 1000 / 1000 Lactated Ringers 1,000 ML @ 50 1000 / 1000 mls/hr IVC .Q20H [facility] Rx#: [id number] Oral 240 / 690 250 / 690 50 / 50 Output: Urine 200 / 200 Wound Drainage Right Knee Other: Meal Breakfast Percent of Meal Consumed 100% # Voids 1 3 Weight 76.8 kg Blood Glucose* 93 89 Patient Weight 12/16/18 23:59 Weight 76.8 kg - Labs CBC & BMP: 12/15/18 06:38 12/14/18 03:42 Labs: Abnormal lab results RBC 2.84 M/mcL (3.82-4.97) L 12/15/18 06:38 Hgb 8.0 g/dL (11.5-15.4) L 12/15/18 06:38 Hct 25.5 % (35.3-44.9) L 12/15/18 06:38 MCHC 31.4 g/dL (31.6-35.5) L 12/15/18 06:38 RDW 15.9 % (11.5-14.5) H 12/15/18 06:38 PT 20.3 Seconds (9.4-12.1) H 12/15/18 06:38 Sodium 135 mEq/L (136-145) L 12/14/18 03:42 Potassium 5.4 mEq/L (3.5-5.1) H 12/13/18 07:52 Carbon Dioxide 21 mEq/L (23-29) L 12/14/18 03:42 BUN 50 mg/dL (8-23) H 12/14/18 03:42 2.60 mg/dL (0.60-1.20) H 12/14/18 03:42 Est GFR ( Amer) 22 (> 60) L 12/14/18 03:42 Est GFR (Non-Af Amer) 18 (> 60) L 12/14/18 03:42 Glucose 155 mg/dL (70-105) H 12/13/18 07:52 POC Glucose 122 mg/dL (70-99) H 12/15/18 11:14 Vancomycin Trough 17 mcg/mL (5-10) H 12/15/18 06:38 Crossmatch See Detail 12/12/18 15:08 - VTE Documentation of Mechanical Device: Venous foot pump, device Consult Discharge Plan - Plan Referrals: Conchita Lovett MD [Primary Care Provider] - Prescriptions: OxyCODONE Immed Rel [Roxicodone 5 MG] 5 mg PO Q6HR PRN 5 Days #20 tablet PRN Reason: Pain
[2018-12-16 07:01] LABS: INR 1.9; Prothrombin Time 21.5 Seconds (9.4-12.1)
--- NOTE | 2018-12-16 08:18 | Discharge Summary ---
Orders not resulted at time of discharge: Pending orders 12/12/18 14:51 US anesthesia pain block [US] Routine 12/12/18 15:08 Red Blood Cells [BBK] Stat Type and Screen [BBK] Stat 12/12/18 15:34 Culture,Anaerobic [RM] Stat 12/12/18 16:51 Surgical Pathology [PTH] Routine 12/17/18 04:00 PT/INR [Prothrombin Time INR] [COAG] AM 0400 12/18/18 04:00 PT/INR [Prothrombin Time INR] [COAG] AM 0400 12/19/18 04:00 PT/INR [Prothrombin Time INR] [COAG] AM 0400 12/20/18 04:00 PT/INR [Prothrombin Time INR] [COAG] AM 0400 12/21/18 04:00 PT/INR [Prothrombin Time INR] [COAG] AM 0400 12/22/18 04:00 PT/INR [Prothrombin Time INR] [COAG] AM 0400 12/23/18 04:00 PT/INR [Prothrombin Time INR] [COAG] AM 0400 Date of Encounter: 12/16/18 Time of Encounter: 09:30 - Discharge Diagnosis (1) Pain in right knee Priority: Primary Status: Chronic Qualifiers: Chronicity: chronic Qualified Code(s): M25.561 - Pain in right knee; G89.29 - Other chronic pain (2) Stiffness of right knee Priority: Primary Status: Chronic (3) Status post revision of total replacement of right knee Priority: Primary Status: Acute (4) Acute kidney injury superimposed on CKD Priority: Primary Status: Resolved (5) Renal insufficiency Priority: Secondary Status: Chronic (6) Anticoagulant long-term use Priority: Secondary Status: Chronic (7) DMII (diabetes mellitus, type 2) Priority: Secondary Status: Chronic Qualifiers: Diabetes mellitus intermediate insulin use: with intermediate use Diabetes mellitus complication status: with other specified complication Qualified Code(s): E11.69 - Type 2 diabetes mellitus with other specified complication; Z79.4 - correction (current) use of insulin (8) HTN (hypertension) Priority: Secondary Status: Chronic Qualifiers: Hypertension type: essential hypertension Qualified Code(s): I10 - Essential (primary) hypertension (9) History of DVT (deep vein thrombosis) Priority: Secondary Status: Chronic (10) Sarcoidosis Priority: Secondary Status: Chronic - Hospital Course Hospital course: Ms. Mercedes is a 73 year old female POD#4 s/p Right revision robotic-assisted Total knee replacement[Painful stiff right total knee] 12/12/[address] Harris Patient seen at bedside. A&Ox3 Dressing and incision c/d/i No calf tenderness, erythema, or warmth. TROM brace in place in locked extension Neurovascularly intact b/l LE. Labwork, vitals, and medications reviewed. H/H and BMP repeated today - patient c/o dizziness - does admit she has been up to chair for a while and is feeling tired. Reviewed - labs at patient's preoperative baseline now. See below. Pain control: Adequate Participating in PT. All questions and concerns addressed. Educated on use of incentive spirometer, ambulation, and hydration. Patient educated on post-operative restrictions and care. Addressed: TROM BRACE AT ALL TIMES WITH WHEELS TO EITHER SIDE OF KNEE: LOCKED WITH AMBULATION AND AT REST, BUT OKAY TO UNLOCK FOR THERAPY. D/C plan: to [facility] today for rehabilitation. Patient to keep outpatient follow up as arranged. Vital Signs Temp Pulse Resp BP Pulse Ox 12/16/18 11:18 98.2 F 91 18 103/64 95 12/16/18 06:30 98.6 F 81 16 104/70 96 12/16/18 04:09 98.4 F 81 16 105/69 98 12/15/18 23:05 98.6 F 80 16 102/66 98 12/15/18 18:53 98.7 F 87 17 115/61 98 12/15/18 15:21 98.9 F 87 16 110/73 96 Intake and Output 12/15/18 12/16/18 12/16/18 23:59 07:59 15:59 Intake Total 250 / 1690 1050 / 1780 730 / 1780 Output Total 200 / 225 Balance 50 / 1465 1050 / 1780 730 / 1780 Intake: IV Fluids 1000 / 1490 490 / 1490 Lactated Ringers 1,000 ML @ 50 1000 / 1390 390 / 1390 mls/hr IVC .Q20H ON LICENSE OF [facility] Rx#: [id number] Vancocin 500 MG In 0.9 % Sodium 100 / 100 Chloride (Mini-Bag +) 100 ML @ 100 mls/hr IVPB ONCE ONE Rx#: [id number] Oral 250 / 690 50 / 290 240 / 290 Output: Urine 200 / 200 Other: Meal Breakfast Percent of Meal Consumed 75% # Voids 3 Weight 76.8 kg Blood Glucose* 89 75 151 Patient Weight 12/16/18 23:59 Weight 76.8 kg Short CBC 12/16/18 Range/Units 09:11 Hgb 8.6 L (11.5-15.4) g/dL Hct 27.2 L (35.3-44.9) % BMP 12/16/18 Range/Units 05:25 Sodium 134 L (136-145) mEq/L Potassium 4.6 (3.5-5.1) mEq/L Chloride 102 (98-107) mEq/L Carbon Dioxide 21 L (23-29) mEq/L BUN 41 H (8-23) mg/dL Creatinine 2.30 H (0.60-1.20) mg/dL Glucose 60 L (70-105) mg/dL Calcium 9.7 (8.6-10.3) mg/dL - Time Spent with Patient Total time spent providing and/or coordinating discharge services: - Discharge Medications Prescriptions: New OxyCODONE Immed Rel [Roxicodone 5 MG] 5 mg PO Q6HR PRN 5 Days #20 tablet PRN Reason: Pain Docusate [Colace] 100 mg PO BID capsule Ferrous Sulfate 325 mg PO BIDWM tablet Ascorbic Acid [Vitamin C] 500 mg PO BIDWM tablet Multivit/Ca/Min/Fe/FA [Thera M Plus] 1 tab PO DAILY tablet Continued Hydroxychloroquine [Plaquenuil] 200 mg PO BID Gabapentin [Neurontin] 300 mg PO TID Furosemide [Lasix] 20 mg PO DAILY Warfarin [Coumadin] 3 mg PO SUTUWETHSA Warfarin [Coumadin] 4.5 mg PO MOFR Insulin Glargine [Lantus] 36 unit SQ QAM Insulin Glargine [Lantus] 14 unit SQ QPM Losartan Potassium [Cozaar] 100 mg PO DAILY Enoxaparin [Lovenox] 80 mg SQ Q12HR Insulin ASPART [NovoLOG] 10 - 20 unit SQ TIDWM Metoprolol XL (24 HR) Succ [Toprol Xl] 50 mg PO DAILY Pantoprazole Sodium [Protonix] 40 mg PO DAILY Ropinirole HCl [Requip] 0.25 mg PO HS Adalimumab [Humira] 40 mg SQ QWEEK #0 Home Medications: Enoxaparin [Lovenox] 80 mg SQ Q12HR 12/12/18 [History] Furosemide [Lasix] 20 mg PO DAILY 12/12/18 [History] Gabapentin [Neurontin] 300 mg PO TID 12/12/18 [History] Hydroxychloroquine [Plaquenuil] 200 mg PO BID 12/12/18 [History] Insulin ASPART [NovoLOG] 10 - 20 unit SQ TIDWM 12/12/18 [History] Insulin Glargine [Lantus] 14 unit SQ QPM 12/12/18 [History] Insulin Glargine [Lantus] 36 unit SQ QAM 12/12/18 [History] Losartan Potassium [Cozaar] 100 mg PO DAILY 12/12/18 [History] Metoprolol XL (24 HR) Succ [Toprol Xl] 50 mg PO DAILY 12/12/18 [History] OxyCODONE Immed Rel [Roxicodone 5 MG] 5 mg PO Q6HR PRN 5 Days #20 tablet 12/12/18 [Rx] Pantoprazole Sodium [Protonix] 40 mg PO DAILY 12/12/18 [History] Ropinirole HCl [Requip] 0.25 mg PO HS 12/12/18 [History] Warfarin [Coumadin] 3 mg PO SUTUWETHSA 12/12/18 [History] Warfarin [Coumadin] 4.5 mg PO MOFR 12/12/18 [History] Adalimumab [Humira] 40 mg SQ QWEEK #0 12/16/18 [Rx] Ascorbic Acid [Vitamin C] 500 mg PO BIDWM tablet 12/16/18 [Rx] Docusate [Colace] 100 mg PO BID capsule 12/16/18 [Rx] Ferrous Sulfate 325 mg PO BIDWM tablet 12/16/18 [Rx] Multivit/Ca/Min/Fe/FA [Thera M Plus] 1 tab PO DAILY tablet 12/16/18 [Rx] Allergies/Adverse Reactions: Allergy/AdvReac Type Severity Reaction Status Date / Time niacin Allergy Mild Rash Verified 12/12/18 13:39 [From Niaspan Extended-Release] sertraline Allergy Mild Dizziness Verified 12/12/18 13:39 aspirin [ASA] Allergy See Verified 12/12/18 13:39 Comments infliximab [From Remicade] Allergy Rash Verified 12/12/18 13:39 NSAIDS (Non-Steroidal Allergy See Verified 12/12/18 13:39 Anti-Inflamma Comments Date of admission: 12/12/18 Primary care physician: Conchita Lovett MD Consults: 12/12/18 19:05 Consult to Nutrition [CONS] Routine Comment: Consulting Provider: NUTRITION Reason for Dietary Consult: Other Other:: Proper nutrition to facilitate wound healing Consult to Occupational Therapy [CONS] Routine Comment: Evaluate, develop and implement POC Reason for Consult: post knee surgery Does patient have active BEDREST order?: No Is patient medically & hemodynamically stable?: Yes Consult to Orthopedic Navigator [CONS] [CONS] Routine Consult to Physical Therapy [CONS] Routine Comment: Evaluate, develop and impliment POC Reason for Consult: post knee surgery Does patient have active BEDREST order?: No Is patient medically & hemodynamically stable?: Yes Consult to [place]unger [CONS] Routine Reason for SW Consult: post op joint replacement RT Post Op Consult [CONS] Routine Discharging clinician: Parish Harris Anticipated date of discharge: 12/16/18 - VTE Documentation of Mechanical Device: Venous foot pump, device Labs on day of discharge: Labs from last 24 hours 12/16/18 12/15/18 12/15/18 05:25 15:24 11:14 PT 21.5 H INR 1.9 POC Glucose 93 122 H 12/15/18 06:47 PT INR POC Glucose 116 H Preliminary micro results at discharge 12/12/18 15:34 Anaerobic Culture - Preliminary Surgery At this time, no anaerobic growth is present. The culture will be finalized after 5 days of incubation. - Impressions ITS Impressions Knee X-Ray 12/12/18 12:46 IMPRESSION: Status post revision right knee arthroplasty, with no acute postoperative complication. D/ / 12/12/2018 17:28:45 Truong Garcia MD / [facility]berth Interpreting Provider: Truong Garcia MD - Patient Status Disposition: Transfer SNF Condition: Good Functional capacity at discharge: uses cane/walker (TROM BRACE AT ALL TIMES WITH WHEELS TO EITHER SIDE OF KNEE: LOCKED WITH AMBULATION AND AT REST, BUT OKAY TO UNLOCK FOR THERAPY.) Overall status at discharge: patient is progressing back to baseline - Discharge Instructions Follow Up With: Conchita Lovett MD [Primary Care Provider] - - Diet and Activity Activity: as per physical therapy Diet: advance to your usual diet
[2018-12-16] MEDS: Gabapentin 300 MG CAPSULE PO SCH ×2 (09:20→16:05)
[2018-12-16] MEDS: Multivit/Ca/Min/Fe/FA 1 TAB TABLET PO SCH (09:20)
[2018-12-16] MEDS: Ascorbic Acid 500 MG TABLET PO SCH (09:21)
[2018-12-16] MEDS: Furosemide 20 MG TABLET PO SCH (09:21)
[2018-12-16] MEDS: Insulin LISPRO 300 UNITS/3 ML VIAL SQ SCH ×2 (09:22→12:59)
[2018-12-16 09:24] LABS: Hematocrit 27.2 % (35.3-44.9); Hemoglobin 8.6 g/dL (11.5-15.4)
[2018-12-16] MEDS: Insulin DETEMIR 100 UNIT/ML X5UNITS SQ SCH (09:31)
[2018-12-16 09:46] LABS: Calcium 9.7 mg/dL (8.6-10.3); Potassium 4.6 mEq/L (3.5-5.1)
[2018-12-16] MEDS ORDERED: Ondansetron ODT 4 MG TAB.RAPDIS SL ONE (16:32)
[2018-12-16 16:40] VITALS: BP 152/84
[2018-12-16] MEDS ORDERED: *HR* Warfarin 3 MG TABLET PO ONE (18:00)
== END 2018-12-12 16:41 | DRG 467 ==
LOC: SAMDAY 12:29 → 3NENU 12:29 → SAMDAY 12-16 16:41 → 3NENU 12-27 08:11
PROVIDERS: ADMIT Orthopaedic Surgery; ATTEND Orthopaedic Surgery

== ENCOUNTER 2019-06-21 16:26 | Inpatient (IN) ==
[2019-06-21 17:46] LABS: Basophils # 0.1 K/mcL (0.0-0.2); Basophils % 0.4 %; Eosinophils % 0.2 %; Hematocrit 33.5 % (35.3-44.9); Hemoglobin 10.9 g/dL (11.5-15.4); Immature Granulocytes % 0.8 % (0-4); Lymphocytes # 0.8 K/mcL (0.6-4.6); Lymphocytes % 4.6 %; Mean Corpuscular HGB Conc 32.5 g/dL (31.6-35.5); Mean Corpuscular Volume 82.9 fL (83.0-100.0); Mean Platelet Volume 9.3 fL (9.4-12.4); Monocytes # 0.7 K/mcL (0.0-1.3); Monocytes % 4.1 %; Neutrophils # 14.5 K/mcL (1.6-8.9); Platelet Count 259 K/mcL (140-400); Red Blood Count 4.04 M/mcL (3.82-4.97); Segmented Neutrophils % 89.9 %; White Blood Count 16.2 K/mcL (4.3-11.1)
[2019-06-21 18:06] LABS: Calcium 8.6 mg/dL (8.6-10.3); Potassium 4.5 mEq/L (3.5-5.1)
[2019-06-21 18:14] LABS: Troponin I 0.04 ng/mL (< 0.04)
[2019-06-21 18:28] LABS: INR 3.1; Prothrombin Time 35.7 Seconds (9.4-12.1)
[2019-06-21 18:30] LABS: Activated Partial Thrombo Time 53.6 Seconds (26.0-36.0)
[2019-06-21] MEDS ORDERED: Azithromycin 500 MG in 0.9 % Sodium Chloride 250 ML IVPB ONE (19:47)
[2019-06-21] MEDS ORDERED: cefTRIAXone 1,000 MG in Water for inj. (sterile) 10 ML IVP ONE (19:47)
[2019-06-21] MEDS ORDERED: Naloxone 0.4 MG/ML INJ IVP PRN (19:52)
[2019-06-21] MEDS ORDERED: *HR* Dextrose 50 % in Water (Syg) 50 ML SYRINGE IVP PRN (19:52)
[2019-06-21] MEDS ORDERED: Dextrose Gel 15 GM/37.5 ML TUBE PO PRN ×2 (19:52)
[2019-06-21] MEDS ORDERED: Ondansetron ODT 4 MG TAB.RAPDIS SL PRN (19:52)
[2019-06-21] MEDS ORDERED: D5% in Water 1,000 ML IVC PRN (19:52)
[2019-06-21] MEDS ORDERED: Cefepime HCl 2,000 MG in Water for inj. (sterile) 20 ML IVP SCH (19:52)
[2019-06-21] MEDS ORDERED: Vancomycin (wt based) 1,000 MG VIAL IVPB SCH (20:00)
[2019-06-21] MEDS ORDERED: Ringers Solution, Lactated 1,000 ML IVC SCH (20:00)
[2019-06-21] MEDS ORDERED: 0.9 % Sodium Chloride 1,000 ML IVC SCH (20:00)
[2019-06-21] MEDS: Cefepime HCl 2,000 MG in Water for inj. (sterile) 20 ML IVP SCH (20:10)
[2019-06-21] MEDS: *HR* HYDROcodone/Acet 7.5/325 mg TABLET PO PRN (23:46)
[2019-06-22 00:50] LABS: Estimated Average Glucose 111 mg/dl
[2019-06-22] MEDS: MetroNIDAZOLE 500 MG/100 ML 500 MG/100 ML BAG IVPB SCH ×2 (01:23→08:42)
[2019-06-22 02:33] LABS: Basophils % 0.4 %; Eosinophils # 0.1 K/mcL (0.0-0.6); Eosinophils % 1.5 %; Hematocrit 25.9 % (35.3-44.9); Immature Granulocytes % 0.4 % (0-4); Lymphocytes # 1.1 K/mcL (0.6-4.6); Lymphocytes % 12.1 %; Mean Corpuscular HGB Conc 30.9 g/dL (31.6-35.5); Mean Corpuscular Hemoglobin 27.2 pg (28.0-33.3); Mean Corpuscular Volume 88.1 fL (83.0-100.0); Mean Platelet Volume 9.5 fL (9.4-12.4); Monocytes # 0.7 K/mcL (0.0-1.3); Monocytes % 7.7 %; Neutrophils # 7.1 K/mcL (1.6-8.9); Platelet Count 181 K/mcL (140-400); Red Blood Count 2.94 M/mcL (3.82-4.97); Red Cell Distribution Width 15.4 % (11.5-14.5); Segmented Neutrophils % 77.9 %; White Blood Count 9.1 K/mcL (4.3-11.1)
[2019-06-22 02:35] LABS: Prothrombin Time 34.6 Seconds (9.4-12.1)
[2019-06-22 03:00] LABS: Albumin 2.9 g/dL (3.5-5.7); Bilirubin,Total 0.4 mg/dL (0.3-1.0); Calcium 7.4 mg/dL (8.6-10.3); Chol/HDL Ratio 2.3 (0-4.9); Globulin 2.8 g/dL (2.4-3.5); Magnesium 1.2 mg/dL (1.6-2.6); Phosphorous 2.5 mg/dL (2.7-4.5); Potassium 4.1 mEq/L (3.5-5.1); Total Protein 5.7 g/dL (6.4-8.9)
[2019-06-22 04:28] LABS: Bilirubin,Urine Negative (Negative); Blood,Urine Small (Negative); Clarity,Urine Clear (Clear); Color,Urine Yellow (Yellow); Glucose,Urine (UA) Normal (Normal); Ketones,Urine Negative (Negative); Leukocyte Esterase,Urine Small (Negative); Nitrite,Urine Negative (Negative); PH,Urine 6.5 pH Units (5.0-8.0); Protein,Urine 30 mg/dL (Neg-Trace); Specific Gravity,Urine 1.011 (1.010-1.025); Urobilinogen,Urine Normal (Normal)
[2019-06-22 04:29] LABS: Bacteria,Urine None Seen per hpf (None-Few); Hyaline Casts,Urine None Seen per lpf (None-Few); RBC,Urine 15-30 per hpf (0-3); Squamous Epithelial Cell,Urine Moderate per lpf (None-Few); WBC,Urine 15-30 per hpf (0-3)
[2019-06-22] MEDS: Calcium Gluconate 1gm/50mL 1 GM/50 ML BAG IVPB ONE ×2 (05:48→06:37)
[2019-06-22] MEDS: Insulin LISPRO 300 UNITS/3 ML VIAL SQ SCH ×6 (06:09→20:50)
[2019-06-22] MEDS ORDERED: INSULIN GLARGINE 36 UNIT SQ SCH (09:00)
[2019-06-22] MEDS: Insulin DETEMIR 100 UNIT/ML X5UNITS SQ SCH (12:06)
[2019-06-22] MEDS: Metoprolol XL (24 HR) Succ 50 MG TAB.ER.24H PO SCH (12:07)
[2019-06-22] MEDS: predniSONE 5 MG TABLET PO SCH (12:07)
[2019-06-22] MEDS: Furosemide 20 MG TABLET PO SCH (12:07)
[2019-06-22] MEDS: Gabapentin 300 MG CAPSULE PO SCH ×3 (12:07→21:01)
[2019-06-22] MEDS: *HR* HYDROcodone/Acet 7.5/325 mg TABLET PO PRN (12:07)
[2019-06-22] MEDS ORDERED: Warfarin perPT PO PRN (18:00)
[2019-06-22] MEDS ORDERED: *HR* Warfarin 3 MG TABLET PO SCH (18:00)
[2019-06-22] MEDS ORDERED: INSULIN GLARGINE 14 UNIT SQ SCH (21:00)
[2019-06-22] MEDS ORDERED: Insulin DETEMIR 100 UNIT/ML X5UNITS SQ SCH (21:00)
[2019-06-22] MEDS: Cefepime HCl 2,000 MG in Water for inj. (sterile) 20 ML IVP SCH (21:00)
[2019-06-22] MEDS: rOPINIRole 0.25 MG TABLET PO SCH (21:01)
[2019-06-23 06:37] LABS: Hematocrit 27.3 % (35.3-44.9); Hemoglobin 8.7 g/dL (11.5-15.4); INR 2.2; Mean Corpuscular HGB Conc 31.9 g/dL (31.6-35.5); Mean Corpuscular Hemoglobin 26.9 pg (28.0-33.3); Mean Corpuscular Volume 84.3 fL (83.0-100.0); Mean Platelet Volume 9.4 fL (9.4-12.4); Platelet Count 223 K/mcL (140-400); Prothrombin Time 24.6 Seconds (9.4-12.1); Red Blood Count 3.24 M/mcL (3.82-4.97); Red Cell Distribution Width 15.3 % (11.5-14.5); White Blood Count 6.6 K/mcL (4.3-11.1)
[2019-06-23 06:54] LABS: Calcium 8.4 mg/dL (8.6-10.3); Magnesium 2.2 mg/dL (1.6-2.6); Potassium 4.7 mEq/L (3.5-5.1)
[2019-06-23] MEDS: Metoprolol XL (24 HR) Succ 50 MG TAB.ER.24H PO SCH (08:01)
[2019-06-23] MEDS: Gabapentin 300 MG CAPSULE PO SCH ×3 (08:02→20:47)
[2019-06-23] MEDS: Furosemide 20 MG TABLET PO SCH (08:02)
[2019-06-23] MEDS: predniSONE 5 MG TABLET PO SCH (08:02)
[2019-06-23] MEDS: Insulin DETEMIR 100 UNIT/ML X5UNITS SQ SCH (08:06)
[2019-06-23] MEDS: Insulin LISPRO 300 UNITS/3 ML VIAL SQ SCH ×4 (08:06→20:37)
[2019-06-23] MEDS: *HR* HYDROcodone/Acet 7.5/325 mg TABLET PO PRN ×2 (08:27→20:47)
[2019-06-23 11:51] LABS: Adenovirus Not Detected (Not Detect); Bordetella Pertussis Not Detected (Not Detect); Chlamydophila pneumoniae Not Detected (Not Detect); Coronavirus 229E Not Detected (Not Detect); Coronavirus HKU1 Not Detected (Not Detect); Coronavirus NL63 Not Detected (Not Detect); Coronavirus OC43 Not Detected (Not Detect); Human Metapneumovirus Not Detected (Not Detect); Human Rhinovirus/Enterovirus Not Detected (Not Detect); Influenza A Subtype 2009 H1 Not Detected (Not Detect); Influenza B Not Detected (Not Detect); Mycoplasma pneumoniae Not Detected (Not Detect); Parainfluenza Virus 1 Not Detected (Not Detect); Parainfluenza Virus 2 Not Detected (Not Detect); Parainfluenza Virus 3 Not Detected (Not Detect); Parainfluenza Virus 4 Not Detected (Not Detect); Respiratory Syncytial Virus Not Detected (Not Detect)
[2019-06-23] MEDS ORDERED: Aminoglycoside Consult 1 EACH MC ONE (12:10)
[2019-06-23] MEDS ORDERED: *HR* Warfarin 3 MG TABLET PO ONE (18:00)
[2019-06-23] MEDS: Cefepime HCl 2,000 MG in Water for inj. (sterile) 20 ML IVP SCH (20:47)
[2019-06-23] MEDS: rOPINIRole 0.25 MG TABLET PO SCH (20:47)
[2019-06-24 05:14] LABS: C.difficile Toxin A/B Gene PCR Not detected (Not detect); Campylobacter by PCR Not detected (Not detect); Enteroaggregative E.coli(EAEC) Not detected (Not detect); Enteropathogenic E.coli(EPEC) DETECTED (Not detect); Enterotoxigenic E.coli (ETEC) Not detected (Not detect); Plesiomonas shigelloides PCR Not detected (Not detect); Salmonella PCR Not detected (Not detect); Shigalike tox-prod E coli STEC Not detected (Not detect); Vibrio PCR Not detected (Not detect); Vibrio cholerae PCR Not detected (Not detect); Yersinia enterocolitica PCR Not detected (Not detect)
[2019-06-24 05:15] LABS: Adenovirus F 40/41 PCR Not detected (Not detect); Astrovirus PCR Not detected (Not detect); Cryptosporidium by PCR Not detected (Not detect); Cyclospora cayetanensis PCR Not detected (Not detect); E. coli O157 by PCR Not detected (Not detect); Entamoeba histolytica PCR Not detected (Not detect); Giardia lamblia PCR Not detected (Not detect); Norovirus GI/GII PCR Not detected (Not detect); Rotavirus A PCR Not detected (Not detect); Sapovirus PCR Not detected (Not detect); Shig/EnteroinvasiveE coli EIEC Not detected (Not detect)
[2019-06-24 05:56] LABS: INR 1.8; Prothrombin Time 20.5 Seconds (9.4-12.1)
[2019-06-24 05:57] LABS: Hematocrit 29.3 % (35.3-44.9); Hemoglobin 9.2 g/dL (11.5-15.4); Mean Corpuscular HGB Conc 31.4 g/dL (31.6-35.5); Mean Corpuscular Hemoglobin 26.7 pg (28.0-33.3); Mean Corpuscular Volume 85.2 fL (83.0-100.0); Mean Platelet Volume 9.5 fL (9.4-12.4); Platelet Count 226 K/mcL (140-400); Red Blood Count 3.44 M/mcL (3.82-4.97); Red Cell Distribution Width 15.6 % (11.5-14.5); White Blood Count 6.4 K/mcL (4.3-11.1)
[2019-06-24 06:13] LABS: Calcium 8.6 mg/dL (8.6-10.3); Potassium 4.6 mEq/L (3.5-5.1)
[2019-06-24] MEDS: Insulin LISPRO 300 UNITS/3 ML VIAL SQ SCH ×4 (08:10→21:04)
[2019-06-24] MEDS: Furosemide 20 MG TABLET PO SCH (08:19)
[2019-06-24] MEDS: predniSONE 5 MG TABLET PO SCH (08:20)
[2019-06-24] MEDS: Metoprolol XL (24 HR) Succ 50 MG TAB.ER.24H PO SCH (08:21)
[2019-06-24] MEDS: Gabapentin 300 MG CAPSULE PO SCH ×3 (08:21→21:02)
[2019-06-24] MEDS ORDERED: Ipratropium/Albuterol Neb 3 ML IH PRN (08:23)
[2019-06-24] MEDS: *HR* HYDROcodone/Acet 7.5/325 mg TABLET PO PRN (08:36)
[2019-06-24] MEDS: Lactobacillus 1 EACH CAP.SPRINK PO SCH ×2 (08:37→21:02)
[2019-06-24] MEDS: Ipratropium/Albuterol Neb 3 ML IH SCH ×3 (10:39→22:12)
[2019-06-24] MEDS ORDERED: *HR* Warfarin 3 MG TABLET PO ONE (18:00)
[2019-06-24] MEDS: rOPINIRole 0.25 MG TABLET PO SCH (21:02)
[2019-06-24] MEDS: Cefepime HCl 2,000 MG in Water for inj. (sterile) 20 ML IVP SCH (21:04)
[2019-06-25] MEDS: Ipratropium/Albuterol Neb 3 ML IH SCH ×4 (04:10→22:05)
[2019-06-25 07:00] LABS: Hematocrit 27.7 % (35.3-44.9); Hemoglobin 8.8 g/dL (11.5-15.4); Mean Corpuscular HGB Conc 31.8 g/dL (31.6-35.5); Mean Corpuscular Hemoglobin 27.2 pg (28.0-33.3); Mean Corpuscular Volume 85.5 fL (83.0-100.0); Mean Platelet Volume 9.5 fL (9.4-12.4); Platelet Count 214 K/mcL (140-400); Red Blood Count 3.24 M/mcL (3.82-4.97); Red Cell Distribution Width 15.4 % (11.5-14.5); White Blood Count 5.7 K/mcL (4.3-11.1)
[2019-06-25 07:08] LABS: INR 1.8; Prothrombin Time 20.1 Seconds (9.4-12.1)
[2019-06-25 07:22] LABS: Calcium 8.6 mg/dL (8.6-10.3); Potassium 4.6 mEq/L (3.5-5.1)
[2019-06-25] MEDS: Insulin LISPRO 300 UNITS/3 ML VIAL SQ SCH ×4 (08:45→21:06)
[2019-06-25] MEDS: Gabapentin 300 MG CAPSULE PO SCH ×3 (09:09→20:45)
[2019-06-25] MEDS: predniSONE 5 MG TABLET PO SCH (09:09)
[2019-06-25] MEDS: Lactobacillus 1 EACH CAP.SPRINK PO SCH ×2 (09:09→20:45)
[2019-06-25] MEDS: Furosemide 20 MG TABLET PO SCH (09:10)
[2019-06-25] MEDS: Metoprolol XL (24 HR) Succ 50 MG TAB.ER.24H PO SCH (09:11)
[2019-06-25] MEDS: *HR* HYDROcodone/Acet 7.5/325 mg TABLET PO PRN ×2 (09:11→20:45)
[2019-06-25] MEDS: Menthol 9.1 MG LOZENGE PO PRN ×2 (12:20→17:10)
[2019-06-25] MEDS ORDERED: *HR* Warfarin 3 MG TABLET PO ONE (18:00)
[2019-06-25] MEDS: Cefepime HCl 2,000 MG in Water for inj. (sterile) 20 ML IVP SCH (20:42)
[2019-06-25] MEDS: rOPINIRole 0.25 MG TABLET PO SCH (20:45)
[2019-06-26] MEDS: Ipratropium/Albuterol Neb 3 ML IH SCH ×3 (04:22→16:32)
[2019-06-26 06:29] LABS: Hematocrit 27.5 % (35.3-44.9); Hemoglobin 8.4 g/dL (11.5-15.4); Mean Corpuscular HGB Conc 30.5 g/dL (31.6-35.5); Mean Corpuscular Hemoglobin 27.2 pg (28.0-33.3); Mean Platelet Volume 9.7 fL (9.4-12.4); Platelet Count 194 K/mcL (140-400); Red Blood Count 3.09 M/mcL (3.82-4.97); Red Cell Distribution Width 15.3 % (11.5-14.5); White Blood Count 6.4 K/mcL (4.3-11.1)
[2019-06-26 06:31] LABS: INR 1.9; Prothrombin Time 21.8 Seconds (9.4-12.1)
[2019-06-26 06:56] LABS: Calcium 8.4 mg/dL (8.6-10.3); Potassium 4.9 mEq/L (3.5-5.1)
[2019-06-26] MEDS: Insulin LISPRO 300 UNITS/3 ML VIAL SQ SCH ×4 (09:22→20:52)
[2019-06-26] MEDS: predniSONE 5 MG TABLET PO SCH (09:37)
[2019-06-26] MEDS: Metoprolol XL (24 HR) Succ 50 MG TAB.ER.24H PO SCH (09:37)
[2019-06-26] MEDS: Lactobacillus 1 EACH CAP.SPRINK PO SCH ×2 (09:37→20:55)
[2019-06-26] MEDS: *HR* HYDROcodone/Acet 7.5/325 mg TABLET PO PRN ×2 (09:37→16:59)
[2019-06-26] MEDS: Gabapentin 300 MG CAPSULE PO SCH ×3 (09:37→20:55)
[2019-06-26] MEDS: Furosemide 20 MG TABLET PO SCH (09:37)
[2019-06-26] MEDS: levoFLOXacin 750 MG TABLET PO SCH (14:02)
[2019-06-26] MEDS: Menthol 9.1 MG LOZENGE PO PRN (14:04)
[2019-06-26] MEDS ORDERED: *HR* Warfarin 3 MG TABLET PO ONE (18:00)
[2019-06-26] MEDS: rOPINIRole 0.25 MG TABLET PO SCH (20:55)
[2019-06-27 03:23] LABS: Hematocrit 29.7 % (35.3-44.9); Hemoglobin 9.2 g/dL (11.5-15.4); Mean Corpuscular Hemoglobin 27.5 pg (28.0-33.3); Mean Corpuscular Volume 88.7 fL (83.0-100.0); Mean Platelet Volume 9.5 fL (9.4-12.4); Platelet Count 238 K/mcL (140-400); Red Blood Count 3.35 M/mcL (3.82-4.97); Red Cell Distribution Width 15.6 % (11.5-14.5); White Blood Count 7.8 K/mcL (4.3-11.1)
[2019-06-27 03:25] LABS: INR 1.7; Prothrombin Time 19.1 Seconds (9.4-12.1)
[2019-06-27 03:38] LABS: Calcium 8.9 mg/dL (8.6-10.3); Potassium 5.4 mEq/L (3.5-5.1)
[2019-06-27] MEDS: Insulin LISPRO 300 UNITS/3 ML VIAL SQ SCH ×4 (07:33→20:28)
[2019-06-27] MEDS: Gabapentin 300 MG CAPSULE PO SCH ×3 (07:49→20:28)
[2019-06-27] MEDS: Lactobacillus 1 EACH CAP.SPRINK PO SCH ×2 (07:49→20:28)
[2019-06-27] MEDS: predniSONE 5 MG TABLET PO SCH (07:49)
[2019-06-27] MEDS: Furosemide 20 MG TABLET PO SCH (07:49)
[2019-06-27] MEDS: Metoprolol XL (24 HR) Succ 50 MG TAB.ER.24H PO SCH (07:49)
[2019-06-27] MEDS ORDERED: Albuterol 2.5 MG/3 ML NEBULIZER IH ONE (13:16)
[2019-06-27] MEDS ORDERED: Insulin Human Regular 10 UNIT in 0.9 % Sodium Chloride 10 ML IV ONE (13:18)
[2019-06-27] MEDS ORDERED: *HR* Dextrose 50 % in Water (Syg) 50 ML SYRINGE IVP ONE (13:18)
[2019-06-27] MEDS: *HR* HYDROcodone/Acet 7.5/325 mg TABLET PO PRN (16:33)
[2019-06-27] MEDS ORDERED: *HR* Warfarin 3 MG TABLET PO ONE (18:00)
[2019-06-27] MEDS: Menthol 9.1 MG LOZENGE PO PRN (20:28)
[2019-06-27] MEDS: rOPINIRole 0.25 MG TABLET PO SCH (20:28)
[2019-06-27] MEDS ORDERED: Acetaminophen 325 MG TABLET PO ONE (22:15)
[2019-06-28 06:03] LABS: INR 1.5; Prothrombin Time 17.6 Seconds (9.4-12.1)
[2019-06-28 06:10] LABS: Hematocrit 31.1 % (35.3-44.9); Hemoglobin 9.4 g/dL (11.5-15.4); Mean Corpuscular HGB Conc 30.2 g/dL (31.6-35.5); Mean Corpuscular Hemoglobin 27.2 pg (28.0-33.3); Mean Corpuscular Volume 89.9 fL (83.0-100.0); Mean Platelet Volume 10.1 fL (9.4-12.4); Platelet Count 220 K/mcL (140-400); Red Blood Count 3.46 M/mcL (3.82-4.97); White Blood Count 7.8 K/mcL (4.3-11.1)
[2019-06-28 06:20] LABS: Calcium 8.7 mg/dL (8.6-10.3); Potassium 4.9 mEq/L (3.5-5.1)
[2019-06-28] MEDS: Insulin LISPRO 300 UNITS/3 ML VIAL SQ SCH ×4 (07:35→20:31)
[2019-06-28] MEDS: Furosemide 20 MG TABLET PO SCH (08:02)
[2019-06-28] MEDS: Metoprolol XL (24 HR) Succ 50 MG TAB.ER.24H PO SCH (08:02)
[2019-06-28] MEDS: predniSONE 5 MG TABLET PO SCH (08:02)
[2019-06-28] MEDS: *HR* HYDROcodone/Acet 7.5/325 mg TABLET PO PRN (08:02)
[2019-06-28] MEDS: Gabapentin 300 MG CAPSULE PO SCH ×3 (08:02→20:31)
[2019-06-28] MEDS: Lactobacillus 1 EACH CAP.SPRINK PO SCH ×2 (08:03→20:31)
[2019-06-28] MEDS: 0.9 % Sodium Chloride 500 ML IVC SCH (10:19)
[2019-06-28] MEDS: levoFLOXacin 750 MG TABLET PO SCH (13:16)
[2019-06-28 15:35] LABS: Calcium 8.6 mg/dL (8.6-10.3); Potassium 6.2 mEq/L (3.5-5.1)
[2019-06-28] MEDS ORDERED: Insulin Human Regular 10 UNIT in 0.9 % Sodium Chloride 10 ML IV ONE (15:44)
[2019-06-28] MEDS ORDERED: *HR* Dextrose 50 % in Water (Syg) 50 ML SYRINGE IVP ONE (15:44)
[2019-06-28] MEDS ORDERED: Albuterol 2.5 MG/3 ML NEBULIZER IH ONE (15:45)
[2019-06-28] MEDS ORDERED: *HR* Warfarin 3 MG TABLET PO ONE (18:00)
[2019-06-28] MEDS: rOPINIRole 0.25 MG TABLET PO SCH (20:31)
[2019-06-28 21:05] LABS: Calcium 8.4 mg/dL (8.6-10.3); Potassium 4.9 mEq/L (3.5-5.1)
[2019-06-29 05:46] LABS: Hematocrit 29.8 % (35.3-44.9); Hemoglobin 9.3 g/dL (11.5-15.4); Mean Corpuscular HGB Conc 31.2 g/dL (31.6-35.5); Mean Corpuscular Volume 89.8 fL (83.0-100.0); Mean Platelet Volume 10.1 fL (9.4-12.4); Platelet Count 215 K/mcL (140-400); Red Blood Count 3.32 M/mcL (3.82-4.97); White Blood Count 7.9 K/mcL (4.3-11.1)
[2019-06-29 05:48] LABS: INR 1.8; Prothrombin Time 20.7 Seconds (9.4-12.1)
[2019-06-29 06:02] LABS: Calcium 8.4 mg/dL (8.6-10.3); Potassium 4.8 mEq/L (3.5-5.1)
[2019-06-29] MEDS: *HR* HYDROcodone/Acet 7.5/325 mg TABLET PO PRN (06:36)
[2019-06-29 07:01] VITALS: BP 133/72
[2019-06-29] MEDS: 0.9 % Sodium Chloride 500 ML IVC SCH (07:04)
[2019-06-29] MEDS: Insulin LISPRO 300 UNITS/3 ML VIAL SQ SCH (08:05)
[2019-06-29] MEDS: Metoprolol XL (24 HR) Succ 50 MG TAB.ER.24H PO SCH (09:59)
[2019-06-29] MEDS: Gabapentin 300 MG CAPSULE PO SCH (09:59)
[2019-06-29] MEDS: Furosemide 20 MG TABLET PO SCH (09:59)
[2019-06-29] MEDS: Lactobacillus 1 EACH CAP.SPRINK PO SCH (09:59)
[2019-06-29] MEDS: predniSONE 5 MG TABLET PO SCH (09:59)
== END 2019-06-29 13:51 | disposition home or self-care (01) | DRG 194 ==
LOC: 3BNU 16:26 → EMEROOARM 16:26 → 3BNU 20:30
PROVIDERS: ADMIT Internal Medicine; ATTEND Internal Medicine

== ENCOUNTER 2021-12-27 16:43 | Observation (INO) ==
[2021-12-27] MEDS ORDERED: Iopamidol - 370 500 ML MLS IVP ONE (20:04)
[2021-12-27 20:17] LABS: VBG HCO3 24 mEq/L (21-27); VBG PCO2 49 mmHg (41-51); VBG PH 7.29 pH Units (7.32-7.42); VBG PO2 53 mmHg (25-50)
[2021-12-27 20:20] LABS: Basophils % 0.3 %; Eosinophils % 0.9 %; Hemoglobin 11.4 g/dL (11.5-15.4); Immature Granulocytes % 0.6 % (0-4); Lymphocytes # 0.8 K/mcL (0.6-4.6); Lymphocytes % 22.5 %; Mean Corpuscular HGB Conc 32.6 g/dL (31.6-35.5); Mean Corpuscular Hemoglobin 26.7 pg (28.0-33.3); Mean Platelet Volume 11.5 fL (9.4-12.4); Monocytes # 0.4 K/mcL (0.0-1.3); Monocytes % 10.5 %; Neutrophils # 2.3 K/mcL (1.6-8.9); Platelet Count 105 K/mcL (140-400); Red Blood Count 4.27 M/mcL (3.82-4.97); Red Cell Distribution Width 14.4 % (11.5-14.5); Segmented Neutrophils % 65.2 %; White Blood Count 3.5 K/mcL (4.3-11.1)
[2021-12-27 20:39] LABS: Alanine Aminotransferase 14 Units/L (7-52); Albumin 3.7 g/dL (3.5-5.7); Albumin/Globulin Ratio 1.1 (1.1-2.2); Alkaline Phosphatase 75 Units/L (34-104); Aspartate Amino Transferase 22 Units/L (13-39); BUN/Creatinine Ratio 16 (6-26); Bilirubin,Total 0.3 mg/dL (0.3-1.0); Blood Urea Nitrogen 52 mg/dL (8-23); Calcium 8.9 mg/dL (8.6-10.3); Carbon Dioxide 22 mEq/L (23-29); Chloride 98 mEq/L (98-107); Globulin 3.3 g/dL (2.4-3.5); Glucose 213 mg/dL (70-105); Osmolality,Calculated 292 (280-300); Potassium 4.2 mEq/L (3.5-5.1); Sodium 131 mEq/L (136-145); Troponin I < 0.03 ng/mL (< 0.04); eGFR For African Americans 17 (> 60); eGFR For Non-African Americans 14 (> 60)
[2021-12-27] MEDS ORDERED: 0.9 % Sodium Chloride 1,000 ML IV ONE (21:05)
[2021-12-27 21:10] LABS: Bilirubin,Urine Negative (Negative); Blood,Urine Trace (Negative); Clarity,Urine Clear (Clear); Color,Urine Light-Yellow (Yellow); Glucose,Urine (UA) 50 mg/dL (Normal); Ketones,Urine Negative (Negative); Leukocyte Esterase,Urine Negative (Negative); Nitrite,Urine Negative (Negative); Protein,Urine 100 mg/dL (Neg-Trace); RBC,Urine 0-3 per hpf (0-3); Specific Gravity,Urine 1.011 (1.010-1.025); Squamous Epithelial Cell,Urine Few per hpf (None-Few); Urobilinogen,Urine Normal (Normal); WBC,Urine 0-3 per hpf (0-3)
[2021-12-27 21:28] LABS: Amphetamine Screen,Urine Negative ng/mL (Cutoff=1000); Barbiturate Screen,Urine Negative ng/mL (Cutoff=200); Benzodiazepines Screen,Urine Negative ng/mL (Cutoff=200); Cannabinoid Screen,Urine Negative ng/mL (Cutoff = 50); Cocaine Screen,Urine Negative ng/mL (Cutoff= 300); Opiate Screen,Urine Negative ng/mL (Cutoff=300); Phencyclidine Screen,Urine Negative ng/mL (Cutoff=25)
[2021-12-27] MEDS ORDERED: Insulin DETEMIR 100 UNIT/ML X5UNITS SUBQ ONE (22:45)
[2021-12-27] MEDS ORDERED: Gabapentin 300 MG CAPSULE PO ONE (22:45)
[2021-12-27] MEDS ORDERED: rOPINIRole 0.25 MG TABLET PO ONE (22:45)
[2021-12-27 22:58] LABS: Magnesium 1.8 mg/dL (1.6-2.6); Salicylate < 2.5 mg/dL (15.0-30.0)
[2021-12-28] MEDS ORDERED: Acetaminophen 325 MG TABLET PO PRN (02:23)
[2021-12-28] MEDS ORDERED: Melatonin 3 MG TABLET PO PRN (02:23)
[2021-12-28] MEDS ORDERED: Ondansetron 4 MG/2 ML VIAL IVP PRN (02:23)
[2021-12-28] MEDS ORDERED: Naloxone 0.4 MG/ML INJ IVP PRN (02:23)
[2021-12-28] MEDS ORDERED: *HR* HYDROcodone/Acet 5/325 mg TABLET PO PRN (02:23)
[2021-12-28] MEDS ORDERED: *HR* Dextrose 50 % in Water (Syg) 50 ML SYRINGE IVP PRN (02:28)
[2021-12-28] MEDS ORDERED: D5% in Water 1,000 ML IVC PRN (02:28)
[2021-12-28] MEDS ORDERED: Dextrose Gel 15 GM/37.5 ML TUBE PO PRN ×2 (02:28)
[2021-12-28] MEDS: 0.9 % Sodium Chloride 1,000 ML IVC SCH ×2 (03:16→11:31)
[2021-12-28] MEDS ORDERED: Saliva Stimulant 44.3ml BOTTLE PO PRN (03:40)
[2021-12-28 04:02] LABS: Adenovirus Not Detected (Not Detect); Bordetella Pertussis Not Detected (Not Detect); Chlamydophila pneumoniae Not Detected (Not Detect); Coronavirus 229E Not Detected (Not Detect); Coronavirus HKU1 Not Detected (Not Detect); Coronavirus NL63 Not Detected (Not Detect); Coronavirus OC43 Not Detected (Not Detect); Human Metapneumovirus Not Detected (Not Detect); Human Rhinovirus/Enterovirus Not Detected (Not Detect); Influenza A Subtype 2009 H1 Not Detected (Not Detect); Influenza B Not Detected (Not Detect); Mycoplasma pneumoniae Not Detected (Not Detect); Parainfluenza Virus 1 Not Detected (Not Detect); Parainfluenza Virus 2 Not Detected (Not Detect); Parainfluenza Virus 3 Not Detected (Not Detect); Parainfluenza Virus 4 Not Detected (Not Detect); Respiratory Syncytial Virus Not Detected (Not Detect); SARS-CoV-2 DETECTED (Not Detect)
[2021-12-28 05:03] LABS: Hemoglobin 10.5 g/dL (11.5-15.4); Immature Granulocytes % 0.9 % (0-4)
[2021-12-28 05:05] LABS: Basophils % 0.4 %; Eosinophils % 1.3 %; Hematocrit 32.7 % (35.3-44.9); Immature Platelets 6.3 % (1.1-6.1); Lymphocytes # 0.6 K/mcL (0.6-4.6); Lymphocytes % 26.4 %; Mean Corpuscular HGB Conc 32.1 g/dL (31.6-35.5); Mean Corpuscular Volume 84.1 fL (83.0-100.0); Monocytes # 0.3 K/mcL (0.0-1.3); Monocytes % 13.2 %; Neutrophils # 1.3 K/mcL (1.6-8.9); Red Blood Count 3.89 M/mcL (3.82-4.97); Red Cell Distribution Width 14.4 % (11.5-14.5); Segmented Neutrophils % 57.8 %; White Blood Count 2.3 K/mcL (4.3-11.1)
[2021-12-28 05:11] LABS: INR 2.1; Prothrombin Time 23.4 Seconds (9.4-12.1)
[2021-12-28 05:14] LABS: Activated Partial Thrombo Time 38.5 Seconds (26.0-36.0)
[2021-12-28 05:24] LABS: % Iron Saturation 5 % (15-50); Iron 19 mcg/dL (50-170); Magnesium 1.7 mg/dL (1.6-2.6); Phosphorous 3.6 mg/dL (2.7-4.5); Transferrin 253 mg/dL (203-362)
[2021-12-28 05:29] LABS: Estimated Average Glucose 260 mg/dl; Hemoglobin A1C 10.7 %
[2021-12-28 05:30] LABS: Sodium, Urine 23.2 mEq/L
[2021-12-28 05:33] LABS: Ferritin 47 ng/mL (10-120)
[2021-12-28 05:43] LABS: Folate > 22.3 ng/mL (3.0-16.0); Vitamin B12 679 pg/mL (250-1100)
[2021-12-28 05:44] LABS: Platelet Count 79 K/mcL (140-400); Platelet Estimate Decreased (Normal)
[2021-12-28] MEDS: Insulin LISPRO 300 UNITS/3 ML VIAL SUBQ SCH ×4 (08:50→12:08)
[2021-12-28] MEDS ORDERED: Multivit/Ca/Min/Fe/FA 1 TAB TABLET PO SCH (09:00)
[2021-12-28] MEDS ORDERED: Chlorhexidine Rinse 15 ML MOUTHWASH MM SCH (09:00)
[2021-12-28] MEDS ORDERED: Lactobacillus 1 EACH CAP.SPRINK PO SCH (09:00)
[2021-12-28] MEDS ORDERED: Cholecalciferol (D-3) 1,000 UNIT (25MCG) TABLET PO SCH (09:00)
[2021-12-28 11:23] VITALS: TEMP 97.7
[2021-12-28 14:34] VITALS: BP 144/81; PULSE 78
[2021-12-28] MEDS ORDERED: *HR* Warfarin 3 MG TABLET PO ONE (18:00)
[2021-12-28] MEDS ORDERED: Warfarin perPT PO PRN (18:00)
[2021-12-28 18:08] VITALS: O2SAT 100
[2021-12-28] MEDS ORDERED: Insulin DETEMIR 100 UNIT/ML X5UNITS SUBQ SCH (21:00)
== END 2021-12-28 17:51 | disposition home or self-care (01) ==
LOC: EMEROOARM 16:43 → 3BNU 16:43 → SUATTDRO 12-28 02:01 → 3BNU 12-28 03:08
PROVIDERS: ADMIT Internal Medicine; ATTEND Internal Medicine